=== PATIENT | male | born 1925 | race Hispanic/Latino ===

== ENCOUNTER 2017-07-16 05:22 | Emergency (ER) | payer MEDICARE ==
[2017-07-16 05:22] VITALS: BMI 23.7
[2017-07-16] MEDS ORDERED: Sodium Chloride 0.9% 1,000 ML IV ONE (05:55)
--- NOTE | 2017-07-16 05:58 | C.PDOC ---
History Of Present Illness The patient presents to the ED for evaluation of abdominal pain which began a few days ago. Patient also reports occasional right buttock discomfort when he sits down. Patient was seen by his PMD 5 days ago but his pain persists so he presents to the ED for further evaluation. Patient denies fever, chills, nausea , vomiting. Time Seen by Provider: 07/16/17 05:49 Chief Complaint (Nursing): Abdominal Pain History Per: Patient History/Exam Limitations: no limitations Onset/Duration Of Symptoms: Days Current Symptoms Are (Timing): Still Present Severity: Moderate Pain Scale Rating Of: 4 Location Of Pain/Discomfort: Diffuse Radiation Of Pain To:: None Quality Of Discomfort: "Pain" Associated Symptoms: denies: Fever, Chills, Nausea, Vomiting Exacerbating Factors: None Alleviating Factors: None Last Bowel Movement: Today Recent travel outside of the [place]: No Additional History Per: Patient Past Medical History Reviewed: Historical Data, Nursing Documentation, Vital Signs Vital Signs: Last Vital Signs Temp 97.7 F 07/16/17 05:47 Pulse 76 07/16/17 05:47 Resp 18 07/16/17 05:47 BP Pulse Ox - Medical History PMH: Arthritis, Diabetes, Gastrointestinal Ulcer ('bleeding'), Gall Bladder Disease, Hypercholesterolemia, Chronic Kidney Disease Surgical History: CABG (x4), Cholecystectomy, Endoscopy - [facility] Procedures DESTRUCTION OF PROSTATE, ENDO (11/26/16) EXCISION OF LEFT URETER, ENDO, DIAGN (09/13/16) FLUOROSCOPY OF LEFT KIDNEY, URETER AND BLADDER (09/13/16) Family History: States: Unknown Family Hx - Social History Hx Tobacco Use: Yes (former smoker) Hx Alcohol Use: No Hx Substance Use: No - Immunization History Hx Tetanus Toxoid Vaccination: No Hx Influenza Vaccination: No Hx Pneumococcal Vaccination: No Review Of Systems Constitutional: Negative for: Fever, Chills Cardiovascular: Negative for: Chest Pain, Palpitations Respiratory: Negative for: Cough, Shortness of Breath Gastrointestinal: Positive for: Abdominal Pain. Negative for: Nausea, Vomiting , Diarrhea, Constipation Genitourinary: Negative for: Dysuria, Frequency, Hematuria Musculoskeletal: Positive for: Other (right buttock discomfort ) Skin: Negative for: Rash, Lesions, Jaundice, Bruising Neurological: Negative for: Weakness, Numbness Physical Exam - Physical Exam Appears: Non-toxic, No Acute Distress Skin: Warm, Dry Head: Normacephalic Eye(s): bilateral: Normal Inspection Oral Mucosa: Moist Neck: Supple Chest: Symmetrical, No Deformity, No Tenderness, Other (CABG scar ) Cardiovascular: Rhythm Regular, No Murmur Respiratory: No Rales, No Rhonchi, No Wheezing Gastrointestinal/Abdominal: Soft, Tenderness (mild, diffuse ), Other (tympanic to percussion. left nephrectomy scar) Back: No Vertebral Tenderness, No Paraspinal Tenderness Extremity: Normal ROM, Capillary Refill (less than 2 seconds ) Neurological/Psych: Oriented x3 Gait: Steady ED Course And Treatment - Laboratory Results Result Diagrams: 07/16/17 06:05 07/16/17 06:05 ECG: Interpreted By Me, Viewed By Me ECG Rhythm: Sinus Rhythm Interpretation Of ECG: Sinus Rhythm at rate 70bpm with nonspecific ST-T wave changes. Rate From EC Progress Note: labs, EKG ordered and reviewed. Patient received Protonix IVP, Zofran IVP, and IV Fluids. Disposition Counseled Patient/Family Regarding: Studies Performed, Diagnosis - Disposition Disposition Time: 05:55 Condition: FAIR Forms: [facility] (Mongolian) - Clinical Impression Clinical Impression: Abdominal pain - Scribe Statement The provider has reviewed the documentation as recorded by the Scribe (Tameka Little) Provider Attestation: All medical record entries made by the Scribe were at my direction and personally dictated by me. I have reviewed the chart and agree that the record accurately reflects my personal performance of the history, physical exam, medical decision making, and the department course for this patient. I have also personally directed, reviewed, and agree with the discharge instructions and disposition. Physician Patient Turnover Patient Signed Over To: Tamiko Singh Handoff Comments: pending labs, ct scan and disposition
[2017-07-16 06:18] LABS: BASO # 0.1 K/uL (0.0-0.2); EOS # 0.3 K/uL (0.0-0.7); EOS % 4.5 % (0.0-4.0); MONO # 0.6 K/uL (0.0-0.8); MONO % 7.7 % (0.0-10.0)
[2017-07-16 06:20] LABS: BASO % 1.2 % (0.0-2.0); HEMATOCRIT 40.6 % (35.0-51.0); LYMPH % 27.3 % (20.0-40.0); MEAN CELL VOLUME 86.3 fL (80.0-94.0); MEAN CORPUSCULAR HEMOGLOBIN 28.4 pg (27.0-31.0); MEAN CORPUSCULAR HGB CONC 32.9 g/dL (33.0-37.0); MEAN PLATELET VOLUME 8.5 fL (7.2-11.7); NRBC % 0.1 % (0.0-2.0); RED CELL DISTRIBUTION WIDTH 14.4 % (11.5-14.5); WHITE BLOOD COUNT 7.4 K/uL (4.8-10.8)
[2017-07-16 06:22] LABS: RBC URINE 3 /hpf (0-3); URINE BILIRUBIN NEGATIVE (NEGATIVE); URINE BLOOD NEGATIVE (NEGATIVE); URINE COLOR YELLOW (YELLOW); URINE GLUCOSE (UA) 1+ mg/dL (Normal); URINE KETONE NEGATIVE (NEGATIVE); URINE LEUKOCYTE ESTERASE NEGATIVE Leu/uL (Negative); URINE PROTEIN 1+ mg/dL (NEGATIVE); URINE UROBILINOGEN Normal mg/dL (0.2-1.0); WBC URINE 2 /hpf (0-5)
[2017-07-16 06:27] LABS: ALB/GLOB RATIO 1.2 (1.0-2.1); BILIRUBIN,TOTAL 1.1 mg/dL (0.2-1.3); CALCIUM 9.6 mg/dl (8.6-10.4); TOTAL PROTEIN 8.5 g/dL (6.3-8.3)
[2017-07-16] MEDS ORDERED: Sodium Chloride 0.9% 1,000 ML ONE (06:29)
[2017-07-16 06:33] LABS: POTASSIUM 5.1 mmol/L (3.6-5.2)
--- NOTE | 2017-07-16 08:55 | CT ---
PROCEDURE: CT Abdomen and Pelvis without intravenous contrast HISTORY: abd pain COMPARISON: Comparison is made to the previous study dated 09/13/2016 TECHNIQUE: Axial and reformatted coronal and sagittal CT images of the abdomen and pelvis were obtained without IV or oral contrast administration.. Contrast Dose: 0 Radiation dose: Total exam DLP = 575.57 mGy-cm. This CT exam was performed using one or more of the following dose reduction techniques: Automated exposure control, adjustment of the mA and/or kV according to patient size, and/or use of iterative reconstruction technique. FINDINGS: LOWER THORAX: There are bibasilar hazy opacities may represent atelectasis. There is 7 millimeter noncalcified nodule at the right lung lower lobe image 9 series 3. No evidence of pleural effusion or pericardial effusion. LIVER: Unremarkable. No gross lesion or ductal dilatation. Small amount of pneumobilia seen at the central portion of the liver likely due to prior biliary procedure and cholecystectomy. GALLBLADDER AND BILE DUCTS: Status post cholecystectomy. PANCREAS: Unremarkable. No gross lesion or ductal dilatation. SPLEEN: Unremarkable. ADRENALS: Unremarkable. No mass. KIDNEYS AND URETERS: The patient is status post left nephrectomy since the previous CT. The right kidney is grossly unremarkable. No evidence of right renal stone or hydronephrosis. The right ureter is not distended. VASCULATURE: Unremarkable. No aortic aneurysm. BOWEL: Unremarkable. No obstruction. No gross mural thickening. Left colon diverticulosis seen without evidence of diverticulitis. APPENDIX: No evidence of appendicitis. PERITONEUM: Unremarkable. No free fluid. No free air. LYMPH NODES: There are moderately enlarged periaortic lymphadenopathy seen at the upper abdomen at the level of the right kidney. The largest lymph node measures approximately 3rd T1 millimeter in the transverse diameter. There are also mildly enlarged lymph node at the gastrohepatic ligament region. Mild retroperitoneal fat stranding and prominent lymph nodes are also seen. BLADDER: The urinary bladder is mildly distended. REPRODUCTIVE: The prostate is mildly enlarged. BONES: No acute fracture. OTHER FINDINGS: None. IMPRESSION: Status post left nephrectomy since the previous exam. Moderately enlarged periaortic lymphadenopathy seen mainly around the level of the kidneys. The differential diagnosis includes metastasis versus lymphoma or leukemia. Further assessment is recommended. Status post cholecystectomy. Small amount of pneumobilia seen at the central portion of the liver likely related to prior biliary procedure. Mildly distended urinary bladder. Noncalcified right lung lower lobe nodule measures 7 millimeter.
[2017-07-16 11:50] VITALS: BP 171/82; PULSE 82; RESP 20; TEMP 98.3; O2SAT 95
== END 2017-07-16 11:56 | disposition home or self-care (01) ==
LOC: C.ER 05:22
DX: R33.9 Retention of urine, unspecified (principal); R10.9 Unspecified abdominal pain; M79.604 Pain in right leg; E11.22 Type 2 diabetes mellitus with diabetic chronic kidney disease; N18.9 Chronic kidney disease, unspecified
CPT/HCPCS: 74176; 80053; 81001; 83690; 85025; 85610; 85730; 96374; 96375; 99284; C9113; J2405; J7040

== ENCOUNTER 2017-07-17 20:52 | Observation (INO) | payer MEDICARE ==
[2017-07-17 20:52] VITALS: BMI 23.7
--- NOTE | 2017-07-17 21:04 | C.PDOC ---
History Of Present Illness 89 y/o male presents to the ED for evaluation of recurring pelvic pain which began at around 1800 today. Patient states his symptoms are similar to prior episode. Patient also reports pelvic pain radiation from back. Patient was seen on 07/16 for same, sciatic and urinary retention s/p liang. Patient states the bag has been draining well and he has been compliant with his medications. Patient denies fever, nausea, vomiting, or focal weakness. RECUR PELVIC PAIN SINCE 1800. PS SIM TO PRIOR EPISODE. PELVIC PAIN RADIATION FROM BACK. SEEN 07/16 FOR SAME, +SCIATIC AND URINARY RETENTION S/P LIANG. PS BAG HAS BEEN DRAINING WELL, COMPLIANT W MEDS. NO FEVER, NV, FOCAL WEAKNESS. PENDING APPT DR STEPHENS 07/22 EXAM MILD DIST NONTOXIC ABD SOFT NT ND NO R/G +LIANG IN PLACE NEURO INTACT BACK LIMITED FULL EXTENSION DUE TO PAIN. Time Seen by Provider: 07/17/17 21:04 Chief Complaint (Nursing): Male Genitourinary History Per: Patient History/Exam Limitations: no limitations Onset/Duration Of Symptoms: Hrs Current Symptoms Are (Timing): Still Present Quality Of Discomfort: "Pain" Associated Symptoms: denies: Fever, Nausea, Vomiting Additional History Per: Patient Past Medical History Reviewed: Historical Data, Nursing Documentation, Vital Signs Vital Signs: Last Vital Signs Temp 97.3 F L 07/17/17 20:58 Pulse 77 07/17/17 20:58 Resp 18 07/17/17 20:58 BP 140/103 H 07/17/17 20:58 Pulse Ox 97 07/17/17 22:54 - Medical History PMH: Arthritis, Diabetes, Gastrointestinal Ulcer ('bleeding'), Gall Bladder Disease, Hypercholesterolemia, Chronic Kidney Disease Surgical History: CABG (x4), Cholecystectomy, Endoscopy - [facility] Procedures DESTRUCTION OF PROSTATE, ENDO (11/26/16) EXCISION OF LEFT URETER, ENDO, DIAGN (09/13/16) FLUOROSCOPY OF LEFT KIDNEY, URETER AND BLADDER (09/13/16) Family History: States: Unknown Family Hx - Social History Hx Tobacco Use: Yes (former smoker) Hx Alcohol Use: No Hx Substance Use: No - Immunization History Hx Tetanus Toxoid Vaccination: No Hx Influenza Vaccination: No Hx Pneumococcal Vaccination: No Review Of Systems Neurological: Negative for: Weakness, Numbness Physical Exam - Physical Exam Appears: Non-toxic, Other (mild distress ) Skin: Normal Color, Warm, Dry Head: Atraumatic, Normacephalic Eye(s): bilateral: Normal Inspection Oral Mucosa: Moist Neck: Supple Chest: Symmetrical, No Deformity, No Tenderness Cardiovascular: Rhythm Regular, No Murmur Respiratory: Normal Breath Sounds, No Rales, No Rhonchi, No Wheezing Gastrointestinal/Abdominal: Soft, No Tenderness, No Distention, No Guarding, No Rebound Back: Decreased ROM (limited full extension due to pain ) Extremity: Normal ROM, Capillary Refill (less than 2 seconds ) Neurological/Psych: Oriented x3, Normal Speech, Normal Cognition ED Course And Treatment - Laboratory Results Result Diagrams: 07/17/17 21:58 07/17/17 21:58 Interpretation Of Abnormal: PERSIST RENAL INSUFF, [facility] SINCE 2015. WBC NO SIG CHANGE O2 Sat by Pulse Oximetry: 97 (on RA) Pulse Ox Interpretation: Normal - Other Rad LS SPINE X-Ray: Interpreted by Me (ZHOU; NO LYTIC LESIONS) Progress Note: labs and LS spine AP/LAT ordered and reviewed. Patient recieved Morphine IVP and Toradol IVP. Progress - Re-Evaluation Re-evaluation Note: 07/17/17 22:54 PAIN IMPROVED 07/17/17 23:04 PS PMD @ [facility] D/W DR SALCEDO WILL ADMIT - Data Reviewed Data Reviewed: Lab, Diagnostic imaging, Old records - Continuity of Care Discussed patient case with:: Patient, Covering for PMD Disposition Counseled Patient/Family Regarding: Studies Performed, Diagnosis - Disposition Referrals: Harjinder Desai DO [Primary Care Provider] - Disposition: HOSPITALIZED Disposition Time: 23:05 Condition: STABLE Forms: [facility] (Bahraini) - POA Present On Arrival: None - Clinical Impression Clinical Impression: UTI (urinary tract infection), Intractable abdominal pain, Sciatic leg pain - Scribe Statement The provider has reviewed the documentation as recorded by the Scribe (Tameka Little) Provider Attestation: All medical record entries made by the Scribe were at my direction and personally dictated by me. I have reviewed the chart and agree that the record accurately reflects my personal performance of the history, physical exam, medical decision making, and the department course for this patient. I have also personally directed, reviewed, and agree with the discharge instructions and disposition. Decision To Admit - Pt Status Changed To: Hospital Disposition Of: Observation - . Bed Request Type: Regular Admitting Physician: Salvatore Salcedo Patient Diagnosis: UTI (urinary tract infection), Intractable abdominal pain, Sciatic leg pain
[2017-07-17 22:05] LABS: BASO # 0.1 K/uL (0.0-0.2); BASO % 0.8 % (0.0-2.0); EOS # 0.2 K/uL (0.0-0.7); HEMATOCRIT 36.4 % (35.0-51.0); LYMPH # 1.6 K/uL (1.0-4.3); LYMPH % 19.4 % (20.0-40.0); MEAN CELL VOLUME 86.1 fL (80.0-94.0); MEAN CORPUSCULAR HEMOGLOBIN 28.5 pg (27.0-31.0); MEAN CORPUSCULAR HGB CONC 33.1 g/dL (33.0-37.0); MEAN PLATELET VOLUME 8.1 fL (7.2-11.7); MONO # 0.6 K/uL (0.0-0.8); MONO % 7.3 % (0.0-10.0); NRBC % 0.1 % (0.0-2.0); RED CELL DISTRIBUTION WIDTH 14.3 % (11.5-14.5); WHITE BLOOD COUNT 8.2 K/uL (4.8-10.8)
[2017-07-17 22:14] LABS: POTASSIUM 4.4 mmol/L (3.6-5.2)
[2017-07-17 22:15] LABS: RBC URINE 196 /hpf (0-3); TRANSITIONAL EPITHIAL < 1 /hpf (0-3); URINE BACTERIA OCC (<OCC); URINE BILIRUBIN NEGATIVE (NEGATIVE); URINE BLOOD 3+ (NEGATIVE); URINE COLOR Yellow (YELLOW); URINE GLUCOSE (UA) NORMAL (Normal); URINE KETONE NEGATIVE (NEGATIVE); URINE LEUKOCYTE ESTERASE 3+ Leu/uL (Negative); URINE PROTEIN 1+ mg/dL (NEGATIVE); URINE UROBILINOGEN NORMAL mg/dL (0.2-1.0); WBC URINE 69 /hpf (0-5)
[2017-07-17 22:17] LABS: CALCIUM 8.4 mg/dl (8.6-10.4)
[2017-07-17] MEDS ORDERED: Ciprofloxacin 400mg/200ml D5W 400 MG/200 ML BAG IV STA (22:53)
[2017-07-18] MEDS ORDERED: Home Med 1 UNIT (Atorvastatin [Lipitor] 10 MG) PO SCH (01:00)
--- NOTE | 2017-07-18 01:02 | CP.PCM.HP ---
Addendum entered and electronically signed by Juan Gtz DO 07/18/17 02:02 : UTI - Cipro 400mg IV Q12 given instead of Rocephin for UTI due to patient stating that he has an allergy to penicillin (rash). Original Note: <Juan Gtz - Last Filed: 07/18/17 01:33> History of Present Illness - History of Present Illness History of Present Illness: PGY1 Medicine Note for Dr. Duran Patient is an 89 year old male presenting with a PMH of L urethral stricture, CAD, BPH, urinary retention, DM2, hyperlipidemia, and herniated discs presenting with suprapubic and right sided low flank pain. The patient came to the ED yesterday with the same complaints. It was found that he was retaining urine and a lund cath was placed. He was scheduled to follow up with Dr. Sneed as outpatient on Sunday 07/22. He states the pain went away soon after the lund placement yesterday and he was fine all day until 6pm tonight. He states he began to get a dull achy pain suprapubically and a right sided flank pain located directly above his hip bone. Neither pain radiates and it has been constant since its onset. He states that he was not given anything for pain yesterday, just flomax upon discharge. He attempted to take Tylenol which helped a little bit, but he was concerned so he decided to come back to the ED. He denies any f/c, n/v, d/c, sob, cp, numbness or dizziness. Urologist - Dr. nSeed (Dr. Tayler Lancaster has done work for him in the past.) PMH - L urethral stricture, CAD, BPH, urinary retention, DM2, hyperlipidemia, and herniated discs PSH -4 vessel bypass in [place] 1992, cholecystectomy 1992, partial prostatectomy 2001, Left Kidney Removed due to unknown reason to patient in December 2016. (My kidney was working at 25% but I don't know why) Home meds - Lipitor, Flomax and Restoril Allergies - PCN FamilyHx - denies Social - used to smoke 1ppd for 30 years and quit 25 years ago. Former alcoholic and quit 25 years ago. Denies drug use. Patient lives alone, only living family member is daughter in [place]. Present on Admission - Present on Admission Any Indicators Present on Admission: No Review of Systems - Constitutional Constitutional: absent: Chills, Fever, Weakness - EENT Eyes: absent: Change in Vision Nose/Mouth/Throat: absent: Nasal Congestion, Dysphagia - Cardiovascular Cardiovascular: absent: Chest Pain, Edema, Palpitations, Pedal Edema, Syncope - Respiratory Respiratory: absent: Cough, Dyspnea, Wheezing - Gastrointestinal Gastrointestinal: Abdominal Pain (suprapubic). absent: Change in Bowel Habits, Constipation, Diarrhea, Nausea, Vomiting - Genitourinary Genitourinary: Flank Pain (right side), Other (lund placed yesterday) - Neurological Neurological: absent: Abnormal Movements, Frequent Falls, Loss of Vision, Syncope, Tingling, Vertigo - Psychiatric Psychiatric: absent: Change in Appetite, Depression, Difficulty Concentrating - Hematologic/Lymphatic Hematologic: absent: Easy Bleeding, Easy Bruising Past Patient History - Infectious Disease Hx of Infectious Diseases: None - Past Medical History & Family History Past Medical History?: Yes - Past Social History Smoking Status: Former Smoker - CARDIAC Hx Hypercholesterolemia: Yes - PULMONARY Hx Respiratory Disorders: No - NEUROLOGICAL Hx Neurological Disorder: No - HEENT Hx HEENT Problems: Yes Hx Cataracts: Yes (surgery right eye) - RENAL Hx Chronic Kidney Disease: Yes - ENDOCRINE/METABOLIC Hx Diabetes Mellitus Type 2: Yes - HEMATOLOGICAL/ONCOLOGICAL Hx Blood Disorders: No - INTEGUMENTARY Hx Dermatological Problems: No - MUSCULOSKELETAL/RHEUMATOLOGICAL Hx Arthritis: Yes - GASTROINTESTINAL Hx Gall Bladder Disease: Yes - GENITOURINARY/GYNECOLOGICAL Hx Genitourinary Disorders: Yes Hx Hematuria: Yes Hx Prostate Problems: Yes (enlarged prostate, partial prostatectomy) Hx Urinary Tract Infection: Yes - PSYCHIATRIC Hx Substance Use: No - SURGICAL HISTORY Hx Cholecystectomy: Yes Hx Coronary Artery Bypass Graft: Yes (x4) - ANESTHESIA Hx Anesthesia: Yes Hx Anesthesia Reactions: No Hx Malignant Hyperthermia: No Meds Allergies/Adverse Reactions: Allergies Allergy/AdvReac Type Severity Reaction Status Date / Time Penicillins Allergy RASH Verified 07/17/17 20:54 Physical Exam - Constitutional Appears: Well, Non-toxic, No Acute Distress, Younger Than Stated Age - Head Exam Head Exam: ATRAUMATIC, NORMOCEPHALIC - Eye Exam Eye Exam: EOMI, Normal appearance - ENT Exam ENT Exam: Mucous Membranes Moist - Neck Exam Neck exam: Positive for: Normal Inspection. Negative for: Lymphadenopathy - Respiratory Exam Respiratory Exam: Clear to Auscultation Bilateral, NORMAL BREATHING PATTERN. absent: Accessory Muscle Use, Rales, Rhonchi, Wheezes, Respiratory Distress - Cardiovascular Exam Cardiovascular Exam: REGULAR RHYTHM, +S1, +S2 - GI/Abdominal Exam GI & Abdominal Exam: Distended, Normal Bowel Sounds, Soft, Tenderness (mild suprapubic). absent: Firm, Guarding, Rebound, Rigid - Exam Additional comments: lund cath in place draining yellow, grossly non-bloody urine - Extremities Exam Extremities exam: Positive for: normal inspection, pedal pulses present. Negative for: calf tenderness, pedal edema - Back Exam Back exam: absent: CVA tenderness (L), CVA tenderness (R), paraspinal tenderness , rash noted, tenderness, vertebral tenderness - Neurological Exam Neurological exam: Alert, Oriented x3 - Psychiatric Exam Psychiatric exam: Normal Affect, Normal Mood - Skin Skin Exam: Dry, Normal Color, Warm Results - Vital Signs Recent Vital Signs: Last Vital Signs Temp 97.5 F L 07/18/17 00:37 Pulse 68 07/18/17 00:37 Resp 20 07/18/17 00:37 BP 177/80 H 07/18/17 00:37 Pulse Ox 98 07/18/17 00:37 - Labs Result Diagrams: 07/17/17 21:58 07/17/17 21:58 Labs: Laboratory Results - last 24 hr 07/17/17 07/17/17 07/17/17 21:58 21:58 21:58 WBC 8.2 RBC 4.23 L Hgb 12.0 Hct 36.4 MCV 86.1 MCH 28.5 MCHC 33.1 RDW 14.3 Plt Count 216 MPV 8.1 Neut % (Auto) 69.5 Lymph % (Auto) 19.4 L Bailey % (Auto) 7.3 Eos % (Auto) 3.0 Baso % (Auto) 0.8 Neut # 5.7 Lymph # 1.6 Bailey # 0.6 Eos # 0.2 Baso # 0.1 Sodium 140 Potassium 4.4 Chloride 110 H Carbon Dioxide 15 L Anion Gap 19 BUN 34 H Creatinine 1.9 H Est GFR ( Amer) 41 Est GFR (Non-Af Amer) 34 Random Glucose 94 Calcium 8.4 L Urine Color Yellow Urine Clarity Hazy Urine pH 5.0 Ur Specific [place] 1.016 Urine Protein 1+ H Urine Glucose (UA) Normal Urine Ketones Negative Urine Blood 3+ H Urine Nitrate Negative Urine Bilirubin Negative Urine Urobilinogen Normal Ur Leukocyte Esterase 3+ H Urine WBC (Auto) 69 H Urine RBC (Auto) 196 H Ur Transition Epith Cell < 1 Urine Bacteria Occ H Assessment & Plan - Assessment and Plan (Free Text) Assessment: Urinary Retention Urology consult Dr. Sneed Lund placed on 07/16/17 UTI f/u urine culture Rocephin 1gm daily IVF - NS@80cc/hr Hx of CABG Patient not followed by Cardiology as an outpatient Aspirin 81mg PO daily DMII Accucheck Sliding Scale f/u HgbA1c Hyperlipidemia f/u lipid panel Crestor 5mg PO HS Ppx Heparin 5000U SC Q12 SCDs Protonix 40mg PO daily Renal Heart Healthy Diet with Moderate Consistent Carbs Plan discussed with Dr. Renee Gtz PGY1 <Salvatore Duran - Last Filed: 07/18/17 06:29> Results - Vital Signs Recent Vital Signs: Last Vital Signs Temp 97.5 F L 07/18/17 00:37 Pulse 68 07/18/17 02:25 Resp 20 07/18/17 02:25 BP 177/80 H 07/18/17 00:37 Pulse Ox 98 07/18/17 02:25 - Labs Result Diagrams: 07/17/17 21:58 07/17/17 21:58 Labs: Laboratory Results - last 24 hr 07/17/17 07/17/17 07/17/17 21:58 21:58 21:58 WBC 8.2 RBC 4.23 L Hgb 12.0 Hct 36.4 MCV 86.1 MCH 28.5 MCHC 33.1 RDW 14.3 Plt Count 216 MPV 8.1 Neut % (Auto) 69.5 Lymph % (Auto) 19.4 L Bailey % (Auto) 7.3 Eos % (Auto) 3.0 Baso % (Auto) 0.8 Neut # 5.7 Lymph # 1.6 Bailey # 0.6 Eos # 0.2 Baso # 0.1 Sodium 140 Potassium 4.4 Chloride 110 H Carbon Dioxide 15 L Anion Gap 19 BUN 34 H Creatinine 1.9 H Est GFR ( Amer) 41 Est GFR (Non-Af Amer) 34 Random Glucose 94 Calcium 8.4 L Urine Color Yellow Urine Clarity Hazy Urine pH 5.0 Ur Specific [place] 1.016 Urine Protein 1+ H Urine Glucose (UA) Normal Urine Ketones Negative Urine Blood 3+ H Urine Nitrate Negative Urine Bilirubin Negative Urine Urobilinogen Normal Ur Leukocyte Esterase 3+ H Urine WBC (Auto) 69 H Urine RBC (Auto) 196 H Ur Transition Epith Cell < 1 Urine Bacteria Occ H Assessment & Plan - Date & Time Date: 07/18/17 (I have seen and examined the patient. I agree with the findings and plan of care as documented by Dr. Gtz. Patient with urinary retention. Received lund on previous visit to ED. Now with UTI and continued pain. Cipro for now. Check blood and urine cultures. Continue home meds for history of diabetes. Accuchecks and NISS. Monitor for acute changes.) Time: 06:27 Attending/Attestation - Attestation I have personally seen and examined this patient.: Yes I have fully participated in the care of the patient.: Yes I have reviewed all pertinent clinical information: Yes
[2017-07-18] MEDS: Sodium Chloride 0.9% 1,000 ML IV SCH ×2 (02:00→13:41)
[2017-07-18] MEDS ORDERED: Pneumococcal 23-Valent Vaccine IM ONE (02:58)
[2017-07-18] MEDS: (Novolin R) Insulin Human Regular 100 units/ml vial SC SCH ×4 (08:01→21:53)
--- NOTE | 2017-07-18 08:20 | RAD ---
Lumbar spine three views History: Back pain. Comparison: None available. Findings: Minimal retrolisthesis of L2 on L3 as well as L4 on L5. Disc space narrowing at the T11-12 and T12-L1 levels. Prominent disc space narrowing at the L4-5 and L5-S1 levels with associated endplate sclerosis and anterior osteophytosis. Lower level facet hypertrophy. Calcification within the aorta. Multilevel paravertebral osteophytosis. Calcification within the pelvis. Impression: Prominent degenerative changes. If pain persists, consider MRI.
[2017-07-18 09:10] LABS: BASO # 0.1 K/uL (0.0-0.2); EOS # 0.3 K/uL (0.0-0.7); EOS % 5.2 % (0.0-4.0); LYMPH # 1.4 K/uL (1.0-4.3); LYMPH % 25.9 % (20.0-40.0); MEAN CELL VOLUME 86.8 fL (80.0-94.0); MEAN CORPUSCULAR HEMOGLOBIN 28.6 pg (27.0-31.0); MEAN CORPUSCULAR HGB CONC 32.9 g/dL (33.0-37.0); MEAN PLATELET VOLUME 8.1 fL (7.2-11.7); MONO # 0.5 K/uL (0.0-0.8); MONO % 9.8 % (0.0-10.0); NRBC % 0.1 % (0.0-2.0); RED CELL DISTRIBUTION WIDTH 14.3 % (11.5-14.5); WHITE BLOOD COUNT 5.5 K/uL (4.8-10.8)
[2017-07-18 09:17] LABS: POTASSIUM 4.7 mmol/L (3.6-5.2)
[2017-07-18 09:19] LABS: ALB/GLOB RATIO 1.1 (1.0-2.1); BILIRUBIN,TOTAL 0.9 mg/dL (0.2-1.3)
[2017-07-18 09:20] LABS: CALCIUM 8.6 mg/dl (8.6-10.4)
--- NOTE | 2017-07-18 09:58 | CP.PCM.PN ---
<Mavis Roca - Last Filed: 07/18/17 17:15> Subjective - Date & Time of Evaluation Date of Evaluation: 07/18/17 Time of Evaluation: 09:00 - Subjective Subjective: Medicine Progress Note: Patient was seen and examined at bedside in the AM. Patient states he was having decreased urination. He also is having decreased appetite this past week but denies weight loss. Patient denies current pain, fever, nausea or vomiting. Objective - Vital Signs/Intake and Output Vital Signs (last 24 hours): Temp Pulse Resp BP Pulse Ox 97 F L 62 21 124/69 95 07/18/17 08:04 07/18/17 08:04 07/18/17 08:04 07/18/17 08:04 07/18/17 08:04 Intake and Output: 07/18/17 07/18/17 06:59 18:59 Intake Total 630 Output Total 240 200 Balance -240 430 - Medications Medications: Current Medications Acetaminophen (Tylenol 325mg Tab) 650 mg PO Q6 PRN PRN Reason: fever/pain Last Admin: 07/18/17 01:11 Dose: 650 mg Aspirin (Aspirin Chewable) 81 mg PO DAILY [facility] Heparin Sodium (Porcine) (Heparin) 5,000 units SC Q8 [facility] Last Admin: 07/18/17 06:25 Dose: 5,000 units Home Med (Atorvastatin [Lipitor]) 10 mg PO DIN [facility] Ciprofloxacin (Cipro 400mg/200ml Dsw) 400 mg in 200 mls @ 133 mls/hr IVPB Q12H [facility] Sodium Chloride (Sodium Chloride 0.9%) 1,000 mls @ 80 mls/hr IV .[id number] [facility] Last Admin: 07/18/17 02:00 Dose: 80 mls/hr Ibuprofen (Motrin Tab) 600 mg PO Q6 PRN PRN Reason: Pain, moderate (4-7) Insulin Human Regular (Novolin R) 0 unit SC ACHS [facility] PRN Reason: Protocol Last Admin: 07/18/17 08:01 Dose: Not Given Pantoprazole Sodium (Protonix Inj) 40 mg IVP DAILY [facility] Tamsulosin HCl (Flomax) 0.4 mg PO DAILY [facility] Temazepam (Restoril) 30 mg PO HS PRN PRN Reason: Insomnia Last Admin: 07/18/17 01:11 Dose: 30 mg - Labs Labs: 07/18/17 08:58 07/18/17 08:58 APTT 34 SECONDS (21-34) D 07/18/17 08:58 - Constitutional Appears: No Acute Distress, Younger Than Stated Age - Head Exam Head Exam: ATRAUMATIC, NORMAL INSPECTION, NORMOCEPHALIC - Eye Exam Eye Exam: EOMI, Normal appearance, PERRL Pupil Exam: NORMAL ACCOMODATION - ENT Exam ENT Exam: Mucous Membranes Moist - Respiratory Exam Respiratory Exam: Clear to Ausculation Bilateral, NORMAL BREATHING PATTERN - Cardiovascular Exam Cardiovascular Exam: REGULAR RHYTHM, RRR, +S1, +S2 - GI/Abdominal Exam GI & Abdominal Exam: Soft, Normal Bowel Sounds. absent: Tenderness - Extremities Exam Extremities Exam: Normal Inspection. 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 Michi Lancaster --> help appreciated - Lew placed on 07/16/17 was removed 07/18 - BUN/Cr: 30/2 2.) UTI - f/u urine culture - UA: Urine bacteria +; WBC +; RBC +; Leukocyte esterase + * Ciprofloxacin 3.) History of CABG - Patient not followed by Cardiology as an outpatient * Aspirin 81mg PO daily - Cholesterol 109; LDL 48; HDL 37; Triglycerides 179 4.) History of Diabetes Type II - Accucheck * Sliding Scale - f/u [id number] 5.) History of Hyperlipidemia - Cholesterol 109; LDL 48; HDL 37; Triglycerides 179 * Crestor 5mg PO HS 6.) Prophylaxis * Heparin 5000U SC Q12 * SCDs * Protonix 40mg PO daily Renal Heart Healthy Diet with Moderate Consistent Carbs; Glucerna Shake 2 per day Case Discussed with Dr. Sidney Roca PGY-1 <Jeb Little - Last Filed: 07/18/17 20:10> Objective - Vital Signs/Intake and Output Vital Signs (last 24 hours): Temp Pulse Resp BP Pulse Ox 97.6 F 60 20 123/65 96 07/18/17 16:00 07/18/17 16:00 07/18/17 16:00 07/18/17 16:00 07/18/17 16:00 Intake and Output: 07/18/17 07/19/17 18:59 06:59 Intake Total 1550 Output Total 220 Balance 1330 - Medications Medications: Current Medications Acetaminophen (Tylenol 325mg Tab) 650 mg PO Q6 PRN PRN Reason: fever/pain Last Admin: 07/18/17 01:11 Dose: 650 mg Aspirin (Aspirin Chewable) 81 mg PO DAILY [facility] Last Admin: 07/18/17 10:48 Dose: 81 mg Heparin Sodium (Porcine) (Heparin) 5,000 units SC Q8 [facility] Last Admin: 07/18/17 13:40 Dose: 5,000 units Home Med (Atorvastatin [Lipitor]) 10 mg PO DIN [facility] Ciprofloxacin (Cipro 400mg/200ml Dsw) 400 mg in 200 mls @ 133 mls/hr IVPB Q12H [facility] Last Admin: 07/18/17 12:11 Dose: 133 mls/hr Ibuprofen (Motrin Tab) 600 mg PO Q6 PRN PRN Reason: Pain, moderate (4-7) Last Admin: 07/18/17 18:32 Dose: 600 mg Insulin Human Regular (Novolin R) 0 unit SC ACHS [facility] PRN Reason: Protocol Last Admin: 07/18/17 16:30 Dose: Not Given Pantoprazole Sodium (Protonix Inj) 40 mg IVP DAILY [facility] Last Admin: 07/18/17 10:49 Dose: 40 mg Tamsulosin HCl (Flomax) 0.4 mg PO DAILY [facility] Last Admin: 07/18/17 10:49 Dose: 0.4 mg Temazepam (Restoril) 30 mg PO HS PRN PRN Reason: Insomnia Last Admin: 07/18/17 01:11 Dose: 30 mg - Labs Labs: 07/18/17 08:58 07/18/17 08:58 APTT 34 SECONDS (21-34) D 07/18/17 08:58 Attending/Attestation - Attestation I have personally seen and examined this patient.: Yes I have fully participated in the care of the patient.: Yes I have reviewed all pertinent clinical information, including history, physical exam and plan: Yes Notes (Text): 07/18/17 20:07 Patient was seen and examined at 3:15 PM 07/18/17 Exam, Assessment and Plan were thoroughly gone over with the resident. I spoke with Urologist Dr. Felix Nichole and he stated that the Lew will not be reinserted. Follow the Post Void Residuals and if ok and NO UTI (f/u the Urine Culture) then will discharge patient. Please note patient could not provide much details concerning his history (such as why was left kidney removed? not on medications for DM 2?) He already has follow up scheduled with his Urologist Dr. Levy for Friday. Jeb Little D.O.
[2017-07-18] MEDS: Ciprofloxacin 400mg/200ml D5W 400 MG/200 ML BAG IVPB SCH ×2 (12:11→23:47)
[2017-07-18 16:36] VITALS: RESP 20
[2017-07-19] MEDS: (Novolin R) Insulin Human Regular 100 units/ml vial SC SCH ×3 (08:00→16:55)
[2017-07-19 08:09] LABS: EOS # 0.3 K/uL (0.0-0.7); EOS % 6.1 % (0.0-4.0); HEMATOCRIT 35.8 % (35.0-51.0); LYMPH # 1.3 K/uL (1.0-4.3); LYMPH % 27.7 % (20.0-40.0); MEAN CELL VOLUME 86.5 fL (80.0-94.0); MEAN CORPUSCULAR HEMOGLOBIN 28.9 pg (27.0-31.0); MEAN CORPUSCULAR HGB CONC 33.4 g/dL (33.0-37.0); MEAN PLATELET VOLUME 8.5 fL (7.2-11.7); MONO # 0.5 K/uL (0.0-0.8); MONO % 10.1 % (0.0-10.0); NRBC % 0.1 % (0.0-2.0); RED CELL DISTRIBUTION WIDTH 14.4 % (11.5-14.5); WHITE BLOOD COUNT 4.5 K/uL (4.8-10.8)
[2017-07-19 08:26] LABS: POTASSIUM 4.7 mmol/L (3.6-5.2)
[2017-07-19 08:28] LABS: BILIRUBIN,TOTAL 0.8 mg/dL (0.2-1.3)
[2017-07-19 08:29] LABS: ALB/GLOB RATIO 1.2 (1.0-2.1); CALCIUM 8.6 mg/dl (8.6-10.4); PHOSPHOROUS 3.2 mg/dL (2.5-4.5); TOTAL PROTEIN 7.2 g/dL (6.3-8.3)
--- NOTE | 2017-07-19 11:40 | CP.PCM.PN ---
Subjective - Date & Time of Evaluation Date of Evaluation: 07/19/17 Time of Evaluation: 11:36 - Subjective Subjective: Patient seen and examined at bedside. Patient frustrated because he wants to know if he has an infection. I informed the patient that we are waiting for the urine cultures and will let him know as soon as we know. Patient still having some suprapubic and low back pain. Patient denies f/c, cp/sob, n/v/d/c. Objective - Vital Signs/Intake and Output Vital Signs (last 24 hours): Temp Pulse Resp BP Pulse Ox 98.8 F 60 20 156/77 H 96 07/19/17 09:04 07/19/17 09:04 07/19/17 09:04 07/19/17 09:04 07/19/17 09:04 Intake and Output: 07/19/17 07/19/17 06:59 18:59 Intake Total 180 Balance 180 - Medications Medications: Current Medications Acetaminophen (Tylenol 325mg Tab) 650 mg PO Q6 PRN PRN Reason: fever/pain Last Admin: 07/18/17 23:50 Dose: 650 mg Aspirin (Aspirin Chewable) 81 mg PO DAILY [facility] Last Admin: 07/19/17 09:56 Dose: 81 mg Heparin Sodium (Porcine) (Heparin) 5,000 units SC Q8 [facility] Last Admin: 07/19/17 05:12 Dose: 5,000 units Home Med (Atorvastatin [Lipitor]) 10 mg PO DIN [facility] Ciprofloxacin (Cipro 400mg/200ml Dsw) 400 mg in 200 mls @ 133 mls/hr IVPB Q12H [facility] Last Admin: 07/18/17 23:47 Dose: 133 mls/hr Ibuprofen (Motrin Tab) 600 mg PO Q6 PRN PRN Reason: Pain, moderate (4-7) Last Admin: 07/19/17 08:41 Dose: 600 mg Insulin Human Regular (Novolin R) 0 unit SC ACHS [facility] PRN Reason: Protocol Last Admin: 07/19/17 08:00 Dose: Not Given Pantoprazole Sodium (Protonix Inj) 40 mg IVP DAILY [facility] Last Admin: 07/19/17 09:57 Dose: 40 mg Tamsulosin HCl (Flomax) 0.4 mg PO DAILY [facility] Last Admin: 07/19/17 09:56 Dose: 0.4 mg Temazepam (Restoril) 30 mg PO HS PRN PRN Reason: Insomnia - Labs Labs: 07/19/17 07:50 07/19/17 07:50 APTT 34 SECONDS (21-34) D 07/18/17 08:58 - Additional Findings Additional findings: - Constitutional Appears: No Acute Distress, Younger Than Stated Age - Head Exam Head Exam: ATRAUMATIC, NORMAL INSPECTION, NORMOCEPHALIC - Eye Exam Eye Exam: EOMI, Normal appearance, PERRL Pupil Exam: NORMAL ACCOMODATION - ENT Exam ENT Exam: Mucous Membranes Moist - Respiratory Exam Respiratory Exam: Clear to Ausculation Bilateral, NORMAL BREATHING PATTERN - Cardiovascular Exam Cardiovascular Exam: REGULAR RHYTHM, RRR, +S1, +S2, Murmur (systolic ejection murmur) - GI/Abdominal Exam GI & Abdominal Exam: Soft, Normal Bowel Sounds. absent: Tenderness - Back Exam Back Exam: absent: CVA tenderness b/l - Extremities Exam Extremities Exam: Normal Inspection. 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 Michi Lancaster --> help appreciated - Lew placed on 07/16/17 was removed 07/18 - BUN/Cr: 30/2 2.) UTI - f/u urine culture - UA: Urine bacteria +; WBC +; RBC +; Leukocyte esterase + * Ciprofloxacin 3.) History of CABG - Patient not followed by Cardiology as an outpatient * Aspirin 81mg PO daily - Cholesterol 109; LDL 48; HDL 37; Triglycerides 179 4.) History of Diabetes Type II - Accucheck * Sliding Scale - [id number] 7.5 5.) History of Hyperlipidemia - Cholesterol 109; LDL 48; HDL 37; Triglycerides 179 * Crestor 5mg PO HS 6.) Prophylaxis * Heparin 5000U SC Q12 * SCDs * Protonix 40mg PO daily - Renal Heart Healthy Diet with Moderate Consistent Carbs; Glucerna Shake 2 per day
[2017-07-19] MEDS: Ciprofloxacin 400mg/200ml D5W 400 MG/200 ML BAG IVPB SCH (13:01)
--- NOTE | 2017-07-19 15:47 | CP.PCM.DIS ---
<Elayne Ag - Last Filed: 07/19/17 16:49> Provider - Provider Date of Admission: 07/17/17 23:05 Attending physician: Jeb Little MD Primary care physician: Harjinder Desai DO Consults: Dr. Lancaster Time Spent in preparation of Discharge (in minutes): 35 Diagnosis - Discharge Diagnosis (1) UTI (urinary tract infection) Status: Acute (2) CAD (coronary artery disease) Status: Acute (3) Hx of CABG Status: Acute (4) Urinary retention Status: Acute (5) Diabetes Status: Chronic (6) Hypercholesterolemia Status: Chronic Hospital Course - Lab Results Lab Results: Micro Results 07/17/17 22:30 Urine Urine Culture - Final No Growth (<1,000 CFU/ML) Most Recent Lab Values WBC 4.5 K/uL (4.8-10.8) L 07/19/17 07:50 RBC 4.14 Mil/uL (4.40-5.90) L 07/19/17 07:50 Hgb 12.0 g/dL (12.0-18.0) 07/19/17 07:50 Hct 35.8 % (35.0-51.0) 07/19/17 07:50 MCV 86.5 fL (80.0-94.0) 07/19/17 07:50 MCH 28.9 pg (27.0-31.0) 07/19/17 07:50 MCHC 33.4 g/dL (33.0-37.0) 07/19/17 07:50 RDW 14.4 % (11.5-14.5) 07/19/17 07:50 Plt Count 190 K/uL (130-400) 07/19/17 07:50 MPV 8.5 fL (7.2-11.7) 07/19/17 07:50 Neut % (Auto) 55.1 % (50.0-75.0) 07/19/17 07:50 Lymph % (Auto) 27.7 % (20.0-40.0) 07/19/17 07:50 [place] % (Auto) 10.1 % (0.0-10.0) H 07/19/17 07:50 Eos % (Auto) 6.1 % (0.0-4.0) H 07/19/17 07:50 Baso % (Auto) 1.0 % (0.0-2.0) 07/19/17 07:50 Neut # 2.5 K/uL (1.8-7.0) 07/19/17 07:50 Lymph # 1.3 K/uL (1.0-4.3) 07/19/17 07:50 [place] # 0.5 K/uL (0.0-0.8) 07/19/17 07:50 Eos # 0.3 K/uL (0.0-0.7) 07/19/17 07:50 Baso # 0.0 K/uL (0.0-0.2) 07/19/17 07:50 APTT 34 SECONDS (21-34) D 07/18/17 08:58 Sodium 142 mmol/L (132-148) 07/19/17 07:50 Potassium 4.7 mmol/L (3.6-5.2) 07/19/17 07:50 Chloride 107 mmol/L (98-107) 07/19/17 07:50 Carbon Dioxide 22 mmol/L (22-30) 07/19/17 07:50 Anion Gap 17 (10-20) 07/19/17 07:50 BUN 29 mg/dL (9-20) H 07/19/17 07:50 Creatinine 2.0 MG/DL (0.8-1.5) H 07/19/17 07:50 Est GFR ( Amer) 38 07/19/17 07:50 Est GFR (Non-Af Amer) 32 07/19/17 07:50 POC Glucose (mg/dL) 119 mg/dL (65-110) H 07/19/17 11:37 Random Glucose 120 mg/dL (75-110) H 07/19/17 07:50 Hemoglobin A1c 7.5 % (4.2-6.5) H 07/18/17 08:58 Calcium 8.6 mg/dl (8.6-10.4) 07/19/17 07:50 Phosphorus 3.2 mg/dL (2.5-4.5) 07/19/17 07:50 Magnesium 2.0 mg/dL (1.6-2.3) 07/19/17 07:50 Total Bilirubin 0.8 mg/dL (0.2-1.3) 07/19/17 07:50 AST 20 U/L (17-59) 07/19/17 07:50 ALT 24 U/L (21-72) 07/19/17 07:50 Alkaline Phosphatase 70 U/L (38-126) 07/19/17 07:50 Total Protein 7.2 g/dL (6.3-8.3) 07/19/17 07:50 Albumin 3.9 g/dL (3.5-5.0) 07/19/17 07:50 Globulin 3.3 gm/dL (2.2-3.9) 07/19/17 07:50 Albumin/Globulin Ratio 1.2 (1.0-2.1) 07/19/17 07:50 Triglycerides 179 mg/dL (0-149) H D 07/18/17 08:58 Cholesterol 109 mg/dL (0-199) 07/18/17 08:58 LDL Cholesterol Direct 48 mg/dL (0-129) 07/18/17 08:58 HDL Cholesterol 37 mg/dL (30-70) 07/18/17 08:58 Urine Color Yellow (YELLOW) 07/17/17 21:58 Urine Clarity Hazy (Clear) 07/17/17 21:58 Urine pH 5.0 (5.0-8.0) 07/17/17 21:58 Ur Specific [place] 1.016 (1.003-1.030) 07/17/17 21:58 Urine Protein 1+ mg/dL (NEGATIVE) H 07/17/17 21:58 Urine Glucose (UA) Normal mg/dL (Normal) 07/17/17 21:58 Urine Ketones Negative mg/dL (NEGATIVE) 07/17/17 21:58 Urine Blood 3+ (NEGATIVE) H 07/17/17 21:58 Urine Nitrate Negative (NEGATIVE) 07/17/17 21:58 Urine Bilirubin Negative (NEGATIVE) 07/17/17 21:58 Urine Urobilinogen Normal mg/dL (0.2-1.0) 07/17/17 21:58 Ur Leukocyte Esterase 3+ Abilio/uL (Negative) H 07/17/17 21:58 Urine WBC (Auto) 69 /hpf (0-5) H 07/17/17 21:58 Urine RBC (Auto) 196 /hpf (0-3) H 07/17/17 21:58 Ur Transition Epith Cell < 1 /hpf (0-3) 07/17/17 21:58 Urine Bacteria Occ (<OCC) H 07/17/17 21:58 - Hospital Course Hospital Course: Upon Admission: Patient is an 89 year old male presenting with a PMH of L urethral stricture, CAD, BPH, urinary retention, DM2, hyperlipidemia, and herniated discs presenting with suprapubic and right sided low flank pain. The patient came to the ED yesterday with the same complaints. It was found that he was retaining urine and a lund cath was placed. He was scheduled to follow up with Dr. Sneed as outpatient on Sunday 07/22. He states the pain went away soon after the lund placement yesterday and he was fine all day until 6pm tonight. He states he began to get a dull achy pain suprapubically and a right sided flank pain located directly above his hip bone. Neither pain radiates and it has been constant since its onset. He states that he was not given anything for pain yesterday, just flomax upon discharge. He attempted to take Tylenol which helped a little bit, but he was concerned so he decided to come back to the ED. He denies any f/c, n/v, d/c, sob, cp, numbness or dizziness. Hospital Course: Patient was admitted for UTI with urinary retention secondary to left urethral stricture. Urology was consulted (Dr. Michi Lancaster). Lund was removed 07/18. Patient was treated with Ciprofloxacin 400 mg IV Q12h and Flomax 0.4 mg PO QD. Prior to arrival at the hospital the patient made an appointment with his urologist, Dr. Levy, who he plans to see on July 22. Patient has a history of CABG that is not followed by a needle punch machine operator helper. Aspirin 81mg PO daily was started and lipid panel done showing Cholesterol 109; LDL 48; HDL 37; Triglycerides 179. Patient was treated with Crestor 5mg PO HS. Patient was started on insulin sliding scale for his history of DMII. Upon Discharge: Patient seen and examined at bedside. Patient feels better today and his pain is significantly decreased. Patient says he was able to urinate this morning. Patient denies f/c, cp/sob, n/v/d/c. Patient cleared for discharge per Dr. Little. The following instructions were provided to the patient: 1. Please follow up with your PMD, Dr. Ward for regular coordination of care. You will need referral to a needle punch machine operator helper for the history of CABG. You will also need to be referred to a Fish Conservationist/Oncologist for evaluation of periaortic lymphadenopathy. We have provided you with a copy of your CT scan report. Please keep this report for the appointment. You will need a referral to a oracle distribution consultant for you chronic kidney disease. 2. Please follow up with your urologist, Dr. Levy, as planned for your appointment on Friday07/22/17. Please note this is a summary of events. For more details, please see complete medical record. Discharge Exam - Head Exam Head Exam: ATRAUMATIC, NORMAL INSPECTION, NORMOCEPHALIC - Additional Findings Additional findings: - Constitutional Appears: No Acute Distress, Younger Than Stated Age - Head Exam Head Exam: ATRAUMATIC, NORMAL INSPECTION, NORMOCEPHALIC - Eye Exam Eye Exam: EOMI, Normal appearance, PERRL Pupil Exam: NORMAL ACCOMODATION - ENT Exam ENT Exam: Mucous Membranes Moist - Respiratory Exam Respiratory Exam: Clear to Ausculation Bilateral, NORMAL BREATHING PATTERN - Cardiovascular Exam Cardiovascular Exam: REGULAR RHYTHM, RRR, +S1, +S2, Murmur (systolic ejection murmur) - GI/Abdominal Exam GI & Abdominal Exam: Soft, Normal Bowel Sounds. absent: Tenderness - Back Exam Back Exam: absent: CVA tenderness b/l - Extremities Exam Extremities Exam: Normal Inspection. absent: Pedal Edema, Tenderness - Neurological Exam Neurological Exam: Alert, Awake, Oriented x3 - Psychiatric Exam Psychiatric exam: Anxious - Skin Skin Exam: Normal Color, Warm Discharge Plan - Follow Up Plan Condition: STABLE Disposition: HOME/ ROUTINE Instructions: Urinary Tract Infection in Men (DC), Abdominal Pain (ED) Additional Instructions: The following instructions should be provided to the patient: 1. Please follow up with your PMD, Dr. Ward for regular coordination of care. You will need referral to a needle punch machine operator helper for the history of CABG. You will also need to be referred to a Fish Conservationist/Oncologist for evaluation of periaortic lymphadenopathy. We have provided you with a copy of your CT scan report. Please keep this report for the appointment. You will need a referral to a oracle distribution consultant for you chronic kidney disease. 2. Please follow up with your urologist, Dr. Levy, as planned for your appointment on Friday07/22/17. Referrals: Harjinder Desai DO [Primary Care Provider] - Michi Levy MD [Staff Provider] - <Jeb Little - Last Filed: 07/19/17 19:37> Provider - Provider Date of Admission: 07/17/17 23:05 Attending physician: Jeb Little MD Primary care physician: Harjinder Desai DO Hospital Course - Lab Results Lab Results: Micro Results 07/17/17 22:30 Urine Urine Culture - Final No Growth (<1,000 CFU/ML) Most Recent Lab Values WBC 4.5 K/uL (4.8-10.8) L 07/19/17 07:50 RBC 4.14 Mil/uL (4.40-5.90) L 07/19/17 07:50 Hgb 12.0 g/dL (12.0-18.0) 07/19/17 07:50 Hct 35.8 % (35.0-51.0) 07/19/17 07:50 MCV 86.5 fL (80.0-94.0) 07/19/17 07:50 MCH 28.9 pg (27.0-31.0) 07/19/17 07:50 MCHC 33.4 g/dL (33.0-37.0) 07/19/17 07:50 RDW 14.4 % (11.5-14.5) 07/19/17 07:50 Plt Count 190 K/uL (130-400) 07/19/17 07:50 MPV 8.5 fL (7.2-11.7) 07/19/17 07:50 Neut % (Auto) 55.1 % (50.0-75.0) 07/19/17 07:50 Lymph % (Auto) 27.7 % (20.0-40.0) 07/19/17 07:50 [place] % (Auto) 10.1 % (0.0-10.0) H 07/19/17 07:50 Eos % (Auto) 6.1 % (0.0-4.0) H 07/19/17 07:50 Baso % (Auto) 1.0 % (0.0-2.0) 07/19/17 07:50 Neut # 2.5 K/uL (1.8-7.0) 07/19/17 07:50 Lymph # 1.3 K/uL (1.0-4.3) 07/19/17 07:50 [place] # 0.5 K/uL (0.0-0.8) 07/19/17 07:50 Eos # 0.3 K/uL (0.0-0.7) 07/19/17 07:50 Baso # 0.0 K/uL (0.0-0.2) 07/19/17 07:50 APTT 34 SECONDS (21-34) D 07/18/17 08:58 Sodium 142 mmol/L (132-148) 07/19/17 07:50 Potassium 4.7 mmol/L (3.6-5.2) 07/19/17 07:50 Chloride 107 mmol/L (98-107) 07/19/17 07:50 Carbon Dioxide 22 mmol/L (22-30) 07/19/17 07:50 Anion Gap 17 (10-20) 07/19/17 07:50 BUN 29 mg/dL (9-20) H 07/19/17 07:50 Creatinine 2.0 MG/DL (0.8-1.5) H 07/19/17 07:50 Est GFR ( Amer) 38 07/19/17 07:50 Est GFR (Non-Af Amer) 32 07/19/17 07:50 POC Glucose (mg/dL) 106 mg/dL (65-110) 07/19/17 16:00 Random Glucose 120 mg/dL (75-110) H 07/19/17 07:50 Hemoglobin A1c 7.5 % (4.2-6.5) H 07/18/17 08:58 Calcium 8.6 mg/dl (8.6-10.4) 07/19/17 07:50 Phosphorus 3.2 mg/dL (2.5-4.5) 07/19/17 07:50 Magnesium 2.0 mg/dL (1.6-2.3) 07/19/17 07:50 Total Bilirubin 0.8 mg/dL (0.2-1.3) 07/19/17 07:50 AST 20 U/L (17-59) 07/19/17 07:50 ALT 24 U/L (21-72) 07/19/17 07:50 Alkaline Phosphatase 70 U/L (38-126) 07/19/17 07:50 Total Protein 7.2 g/dL (6.3-8.3) 07/19/17 07:50 Albumin 3.9 g/dL (3.5-5.0) 07/19/17 07:50 Globulin 3.3 gm/dL (2.2-3.9) 07/19/17 07:50 Albumin/Globulin Ratio 1.2 (1.0-2.1) 07/19/17 07:50 Triglycerides 179 mg/dL (0-149) H D 07/18/17 08:58 Cholesterol 109 mg/dL (0-199) 07/18/17 08:58 LDL Cholesterol Direct 48 mg/dL (0-129) 07/18/17 08:58 HDL Cholesterol 37 mg/dL (30-70) 07/18/17 08:58 Urine Color Yellow (YELLOW) 07/17/17 21:58 Urine Clarity Hazy (Clear) 07/17/17 21:58 Urine pH 5.0 (5.0-8.0) 07/17/17 21:58 Ur Specific [place] 1.016 (1.003-1.030) 07/17/17 21:58 Urine Protein 1+ mg/dL (NEGATIVE) H 07/17/17 21:58 Urine Glucose (UA) Normal mg/dL (Normal) 07/17/17 21:58 Urine Ketones Negative mg/dL (NEGATIVE) 07/17/17 21:58 Urine Blood 3+ (NEGATIVE) H 07/17/17 21:58 Urine Nitrate Negative (NEGATIVE) 07/17/17 21:58 Urine Bilirubin Negative (NEGATIVE) 07/17/17 21:58 Urine Urobilinogen Normal mg/dL (0.2-1.0) 07/17/17 21:58 Ur Leukocyte Esterase 3+ Abilio/uL (Negative) H 07/17/17 21:58 Urine WBC (Auto) 69 /hpf (0-5) H 07/17/17 21:58 Urine RBC (Auto) 196 /hpf (0-3) H 07/17/17 21:58 Ur Transition Epith Cell < 1 /hpf (0-3) 07/17/17 21:58 Urine Bacteria Occ (<OCC) H 07/17/17 21:58 Attending/Attestation - Attestation I have personally seen and examined this patient.: Yes I have fully participated in the care of the patient.: Yes I have reviewed all pertinent clinical information, including history, physical exam and plan: Yes Notes (Text): 07/19/17 19:34 Patient was seen and examined at 4:15 PM 07/19/17 Exam, discharge plan were thoroughly gone over with the resident. Patient stated that he had all of his home medications and that he did not need any new prescriptions Concerning his DM 2, he is not on any medications. When asked why this was the case, he stated that his PMD removed all of his medications. He was instructed to follow up with Dr. Ward concerning this issue. I verballly also gave patient his follow up instructions as mentioned above. Jeb Little D.O.
[2017-07-19 16:16] VITALS: BP 164/73; PULSE 66; TEMP 97.4; O2SAT 95
== END 2017-07-19 20:00 | disposition home or self-care (01) ==
LOC: C.ER 20:52 → SUPCPDRO 20:52 → C.9E 23:05 → C.3T 23:41
PROVIDERS: ADMIT Family Medicine; ATTEND Family Medicine
DX: N39.0 Urinary tract infection, site not specified (principal); R33.8 Other retention of urine; N40.1 Benign prostatic hyperplasia with lower urinary tract symptoms; E11.22 Type 2 diabetes mellitus with diabetic chronic kidney disease; I25.10 Atherosclerotic heart disease of native coronary artery without angina pectoris; N18.9 Chronic kidney disease, unspecified; N35.9 Urethral stricture, unspecified; E78.5 Hyperlipidemia, unspecified; Z79.82 Long term (current) use of aspirin; Z87.11 Personal history of peptic ulcer disease; Z87.440 Personal history of urinary (tract) infections; Z87.891 Personal history of nicotine dependence; Z90.49 Acquired absence of other specified parts of digestive tract; Z90.5 Acquired absence of kidney; Z95.1 Presence of aortocoronary bypass graft
CPT/HCPCS: 36415; 72100; 80048; 80053; 80061; 81001; 82948; 83036; 83735; 84100; 85025; 85730; 87086; 96374; 96375; 97116; 97161; 99285; C9113; G0378; G8978; G8979; J0744; J1644; J1885; J2270; J7040

== ENCOUNTER 2017-08-04 11:39 | Inpatient (IN) | payer MEDICARE ==
[2017-08-04 11:39] VITALS: BMI 23.7
--- NOTE | 2017-08-04 12:29 | C.PDOC ---
History Of Present Illness 89 Y/O MALE PRESENTS TO ED WITH C/O LOWER ABDOMINAL PAIN, BACK/RIGHT BUTTOCK PAIN, AND RIGHT LEG PAIN. PT WITH HISTORY OF BLADDER CA. DENIES FEVER, CHILLS, CHEST PAIN, SOB, NAUSEA, VOMITING, DIARRHEA, OR URINARY SYMPTOMS. PMH of L urethral stricture, CAD, BPH, urinary retention, DM2, hyperlipidemia, and herniated discs DC 07/19 Time Seen by Provider: 08/04/17 12:27 Chief Complaint (Nursing): Abdominal Pain History Per: Patient History/Exam Limitations: no limitations Onset/Duration Of Symptoms: Persistent Current Symptoms Are (Timing): Still Present Severity: Moderate Quality Of Discomfort: "Pain" Associated Symptoms: Back Pain. denies: Fever, Chills, Diarrhea, Chest Pain, Urinary Symptoms Recent travel outside of the [place]: No Past Medical History Reviewed: Historical Data, Nursing Documentation, Vital Signs Vital Signs: Last Vital Signs Temp 97.6 F 08/04/17 11:56 Pulse 67 08/04/17 15:18 Resp 20 08/04/17 15:18 BP 125/63 08/04/17 15:18 Pulse Ox 96 08/04/17 15:19 - Medical History PMH: Arthritis, Diabetes, Gastrointestinal Ulcer ('bleeding'), Gall Bladder Disease, Hypercholesterolemia, Chronic Kidney Disease Surgical History: CABG (x4), Cholecystectomy, Endoscopy - [facility] Procedures DESTRUCTION OF PROSTATE, ENDO (11/26/16) EXCISION OF LEFT URETER, ENDO, DIAGN (09/13/16) FLUOROSCOPY OF LEFT KIDNEY, URETER AND BLADDER (09/13/16) Family History: States: Unknown Family Hx - Social History Hx Tobacco Use: Yes (former smoker) Hx Alcohol Use: No Hx Substance Use: No - Immunization History Hx Tetanus Toxoid Vaccination: No Hx Influenza Vaccination: No Hx Pneumococcal Vaccination: No Review Of Systems Except As Marked, All Systems Reviewed And Found Negative. Constitutional: Negative for: Fever, Chills Cardiovascular: Negative for: Chest Pain, Palpitations Respiratory: Negative for: Cough, Shortness of Breath, Wheezing Gastrointestinal: Positive for: Abdominal Pain. Negative for: Nausea, Vomiting , Diarrhea Genitourinary: Negative for: Dysuria, Frequency, Hematuria Musculoskeletal: Positive for: Back Pain, Leg Pain (R) Skin: Negative for: Rash Neurological: Negative for: Weakness, Numbness, Headache, Dizziness Physical Exam - Physical Exam Appears: Non-toxic, No Acute Distress Skin: Warm, Dry Head: Atraumatic, Normacephalic Chest: Symmetrical Cardiovascular: Rhythm Regular Respiratory: Normal Breath Sounds, No Rales, No Rhonchi, No Wheezing Gastrointestinal/Abdominal: Soft, No Tenderness, No Guarding, No Rebound Back: No Vertebral Tenderness, Decreased ROM Extremity: Normal ROM, Capillary Refill (< 2 sec. ) Neurological/Psych: Oriented x3, Normal Speech, Normal Cognition ED Course And Treatment - Laboratory Results Result Diagrams: 08/04/17 14:27 08/04/17 14:27 ECG: Interpreted By Me, Viewed By Me ECG Rhythm: Sinus Rhythm ECG Interpretation: Normal Rate From EC O2 Sat by Pulse Oximetry: 96 (RA) Pulse Ox Interpretation: Normal - Other Rad LS SPINE XR X-Ray: Viewed By Me, Read By Radiologist Interpretation: Findings: Minimal retrolisthesis of L2 on L3 as well as L4 on L5. Disc space narrowing at the T11-12 and T12-L1 levels. Prominent disc space narrowing at the L4-5 and L5-S1 levels with associated endplate sclerosis and anterior osteophytosis. Lower level facet hypertrophy. Calcification within the aorta. Multilevel paravertebral osteophytosis. Calcification within the pelvis. Impression: Prominent degenerative changes. If pain persists, consider MRI. CXR X-Ray: Viewed By Me, Read By Radiologist Interpretation: No focal consolidation, significant pleural effusion, or definite pneumothorax identified. Enlarged mediastinum; adenopathy is not excluded. Ectatic aorta with calcifications. Progress - Re-Evaluation Re-evaluation Note: 08/04/17 12:36 BLADDER SCAN, EKG. PERCOCET ORDERED. 08/04/17 13:53 D/W DR LANCASTER ADMIT TO HIS SERVICE FOR CA WORKUP 08/04/17 15:14 STILL CO PERSIST PAIN. NARD EXAM UNCH PRIOR. - Data Reviewed Data Reviewed: Lab, Diagnostic imaging, Old records Disposition Counseled Patient/Family Regarding: Studies Performed, Diagnosis - Disposition Disposition: HOSPITALIZED Disposition Time: 13:54 Condition: STABLE - POA Present On Arrival: None - Clinical Impression Clinical Impression: Back pain - Scribe Statement The provider has reviewed the documentation as recorded by the Scribmanoj Geiger All medical record entries made by the Scribe were at my direction and personally dictated by me. I have reviewed the chart and agree that the record accurately reflects my personal performance of the history, physical exam, medical decision making, and the department course for this patient. I have also personally directed, reviewed, and agree with the discharge instructions and disposition. Decision To Admit - Pt Status Changed To: Hospital Disposition Of: Observation - . Bed Request Type: Regular Admitting Physician: Michi Lancaster Patient Diagnosis: Back pain
[2017-08-04] MEDS ORDERED: Oxycodone/Acetaminophen 5/325 mg Tab PO STA (12:36)
[2017-08-04] MEDS ORDERED: Oxycodone/Acetaminophen 5/325 mg Tab ONE (12:48)
[2017-08-04 14:31] LABS: BASO # 0.1 K/uL (0.0-0.2); BASO % 0.9 % (0.0-2.0); EOS # 0.1 K/uL (0.0-0.7); EOS % 1.8 % (0.0-4.0); LYMPH # 1.6 K/uL (1.0-4.3); LYMPH % 24.4 % (20.0-40.0); MEAN CELL VOLUME 86.7 fL (80.0-94.0); MEAN CORPUSCULAR HEMOGLOBIN 29.2 pg (27.0-31.0); MEAN CORPUSCULAR HGB CONC 33.7 g/dL (33.0-37.0); MEAN PLATELET VOLUME 7.3 fL (7.2-11.7); MONO # 0.5 K/uL (0.0-0.8); MONO % 7.5 % (0.0-10.0); RED CELL DISTRIBUTION WIDTH 14.6 % (11.5-14.5); WHITE BLOOD COUNT 6.6 K/uL (4.8-10.8)
[2017-08-04 14:43] LABS: POTASSIUM 4.7 mmol/L (3.6-5.2)
[2017-08-04 14:47] LABS: CALCIUM 9.5 mg/dl (8.6-10.4)
[2017-08-04] MEDS ORDERED: HYDROmorphone 0.5 mg/0.5 ml ISec IVP STA (15:14)
--- NOTE | 2017-08-04 15:33 | RAD ---
HISTORY: BACK PAIN HO CANCER COMPARISON: Chest x-ray performed 11/29/16 TECHNIQUE: Chest, one view. FINDINGS: LUNGS: No focal consolidation. Please note that chest x-ray has limited sensitivity for the detection of pulmonary masses. PLEURA: No significant pleural effusion identified. No definite pneumothorax . CARDIOVASCULAR: Enlarged mediastinum; adenopathy is not excluded. Heart size appears within normal limits. Ectatic aorta with calcifications. OSSEOUS STRUCTURES: No acute osseous abnormality identified. VISUALIZED UPPER ABDOMEN: Unremarkable. OTHER FINDINGS: None. IMPRESSION: No focal consolidation, significant pleural effusion, or definite pneumothorax identified. Enlarged mediastinum; adenopathy is not excluded. Ectatic aorta with calcifications.
--- NOTE | 2017-08-04 22:39 | CP.PCM.CON ---
<Rashida Pinon - Last Filed: 08/05/17 02:30> History of Present Illness - History of Present Illness History of Present Illness: CC: abdominal pain HPI: Patient is an 89 year old male with a past medical history of bladder cancer, BPH, left urethral stricture, urinary retention, CAD, DM2, HLD, and lumbar herniated discs. He was recently discharged from hospital 2 weeks ago s/ p urinary retention with UTI. He presented to the ED today complaining of bilateral suprapubic abdominal pain that started two weeks ago and progressively worsened. The pain is constant and described as "steady," rated 7.5/10 with no radiation. Patient recently saw Dr. Kim (Heme/Onc) for his suprapubic abdominal pain. Patient reports he had imaging/scan of his lymph nodes done, which is what prompted Dr. Fermin to send the patient to the ED. Patient also complains of moderate to severe low back pain that radiates to the right buttock and leg which started months ago but has also worsened. The pain has been manageable with Tylenol at home, but greatly worsens at night and interrupts his sleep. Denies any ill contacts, fever, chills, nausea, vomiting , diarrhea, constipation, or urinary changes. Patient was given Dilaudid for pain in ED. At time of exam, patient is resting comfortably with no pain compared to arrival at ED. PMD: Dr. Desai Urologist: Dr. Mildred Rogel/Onc: Dr. 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 Allergies: Penicillin Home Meds: Acetaminophen 650 mg PO q6 PRN for pain; Temazepam 30 mg PO qhs PRN for sleep; Tamsulosin 0.4 mg PO daily; Atorvastatin 10 mg PO Review of Systems - Constitutional Constitutional: absent: Fever, Headache - EENT Ears: absent: Dizziness - Cardiovascular Cardiovascular: absent: Chest Pain, Dyspnea, Palpitations - Respiratory Respiratory: absent: Cough, Dyspnea - Gastrointestinal Gastrointestinal: absent: Abdominal Pain, Constipation, Diarrhea, Nausea, Vomiting - Genitourinary Genitourinary: absent: Dysuria, Hematuria, Urinary Frequency - Reproductive: Male Reproductive:Male: Pelvic Pain (bilateral suprapubic pain) - Neurological Neurological: absent: Dizziness, Headaches - Endocrine Endocrine: absent: Palpitations, Polyuria Past Patient History - Infectious Disease Hx of Infectious Diseases: None - Past Medical History & Family History Past Medical History?: Yes - Past Social History Smoking Status: stopped 30 - CARDIAC Hx Hypercholesterolemia: Yes - PULMONARY Hx Respiratory Disorders: No - NEUROLOGICAL Hx Neurological Disorder: No - HEENT Hx HEENT Problems: Yes Hx Cataracts: Yes (surgery right eye) - RENAL Hx Chronic Kidney Disease: Yes - ENDOCRINE/METABOLIC Hx Diabetes Mellitus Type 2: Yes - HEMATOLOGICAL/ONCOLOGICAL Hx Blood Disorders: No - INTEGUMENTARY Hx Dermatological Problems: No - MUSCULOSKELETAL/RHEUMATOLOGICAL Hx Falls: No - GASTROINTESTINAL Hx Gall Bladder Disease: Yes - GENITOURINARY/GYNECOLOGICAL Hx Genitourinary Disorders: Yes Hx Bladder Cancer: Yes Hx Hematuria: Yes Hx Prostate Problems: Yes (enlarged prostate, partial prostatectomy) Hx Urinary Tract Infection: Yes - PSYCHIATRIC Hx Substance Use: No - SURGICAL HISTORY Hx Cholecystectomy: Yes Hx Coronary Artery Bypass Graft: Yes (x4) - ANESTHESIA Hx Anesthesia: Yes Hx Anesthesia Reactions: No Hx Malignant Hyperthermia: No Meds Allergies/Adverse Reactions: Allergies Allergy/AdvReac Type Severity Reaction Status Date / Time Penicillins Allergy RASH Verified 08/04/17 12:00 - Medications Medications: Current Medications Acetaminophen (Tylenol 325mg Tab) 650 mg PO Q6 PRN PRN Reason: Insomnia Last Admin: 08/04/17 21:52 Dose: 650 mg Aspirin (Aspirin Chewable) 81 mg PO DAILY LYNDSAY Pneumococcal Polyvalent Vaccine (Pneumovax 23 Vaccine) 0.5 ml IM .ONCE ONE Stop: 08/05/17 10:01 Rosuvastatin Calcium (Crestor) 5 mg PO HS LYNDSAY Tamsulosin HCl (Flomax) 0.4 mg PO DAILY LYNDSAY Temazepam (Restoril) 30 mg PO HS PRN PRN Reason: Insomnia Last Admin: 08/04/17 21:51 Dose: 30 mg Physical Exam - Constitutional Appears: Well, No Acute Distress - Head Exam Head Exam: ATRAUMATIC, NORMAL INSPECTION - Eye Exam Eye Exam: EOMI, Normal appearance - ENT Exam ENT Exam: Mucous Membranes Moist - Respiratory Exam Respiratory Exam: Clear to Auscultation Bilateral, NORMAL BREATHING PATTERN. absent: Rhonchi, Wheezes, Respiratory Distress - Cardiovascular Exam Cardiovascular Exam: REGULAR RHYTHM, +S1, +S2, Systolic Murmur. absent: Bradycardia, Tachycardia - GI/Abdominal Exam GI & Abdominal Exam: Distended, Normal Bowel Sounds, Soft. absent: Firm, Tenderness - Exam Additional comments: Bilateral lymphadenopathy, R>L, nontender at time of exam. No tenderness to palpation of the suprapubic region at time of exam. - Extremities Exam Extremities exam: Positive for: normal inspection, pedal pulses present. Negative for: pedal edema, tenderness - Neurological Exam Neurological exam: Alert, Oriented x3 - Psychiatric Exam Psychiatric exam: Normal Affect, Normal Mood - Skin Skin Exam: Dry, Intact, Normal Color, Warm Additional comments: Well healed parasternal and abdominal surgical scars. Results - Vital Signs Recent Vital Signs: Last Vital Signs Temp 97.6 F 08/04/17 16:00 Pulse 77 08/04/17 16:00 Resp 20 08/04/17 16:00 BP 183/93 H 08/04/17 16:00 Pulse Ox 95 08/04/17 16:00 - Labs Result Diagrams: 08/04/17 14:27 08/04/17 14:27 Labs: Laboratory Results - last 24 hr 08/04/17 08/04/17 08/04/17 14:27 14:27 17:09 WBC 6.6 RBC 4.62 Hgb 13.5 Hct 40.0 MCV 86.7 MCH 29.2 MCHC 33.7 RDW 14.6 H Plt Count 268 MPV 7.3 Neut % (Auto) 65.4 Lymph % (Auto) 24.4 [place] % (Auto) 7.5 Eos % (Auto) 1.8 Baso % (Auto) 0.9 Neut # 4.3 Lymph # 1.6 [place] # 0.5 Eos # 0.1 Baso # 0.1 Sodium 135 Potassium 4.7 Chloride 101 Carbon Dioxide 21 L Anion Gap 18 BUN 35 H Creatinine 2.0 H Est GFR ( Amer) 38 Est GFR (Non-Af Amer) 32 POC Glucose (mg/dL) 106 Random Glucose 119 H Calcium 9.5 08/04/17 21:22 WBC RBC Hgb Hct MCV MCH MCHC RDW Plt Count MPV Neut % (Auto) Lymph % (Auto) [place] % (Auto) Eos % (Auto) Baso % (Auto) Neut # Lymph # [place] # Eos # Baso # Sodium Potassium Chloride Carbon Dioxide Anion Gap BUN Creatinine Est GFR ( Amer) Est GFR (Non-Af Amer) POC Glucose (mg/dL) 167 H Random Glucose Calcium Assessment & Plan (1) Diabetes Assessment and Plan: Patient reports having a history of diabetes, but does not take medication. Monitor blood glucose. ACHS. Status: Chronic (2) Hypercholesterolemia Assessment and Plan: Continue Crestor 5mg PO HS. Status: Chronic (3) BPH (benign prostatic hyperplasia) Assessment and Plan: Continue home medication- Flomax 0.4mg PO daily. Status: Acute (4) Lymphadenopathy Assessment and Plan: Patient had imaging/scan with their hem/onc doctor, Dr. Fermin, for suprapubic pain and lymphadenopathy. Patient does not have results from imaging study. Patient has a history of bladder cancer. Follow recommendations as per Dr. Fermin, help appreciated. Status: Acute (5) Insomnia Assessment and Plan: Continue Temazepam 30mg PO HS prn. Status: Acute (6) Prophylactic measure Assessment and Plan: SCDs ACHS Heart Healthy Diet Pepcid 20mg PO daily Status: Acute <Salvatore Duran - Last Filed: 08/05/17 06:27> Meds - Medications Medications: Current Medications Acetaminophen (Tylenol 325mg Tab) 650 mg PO Q6 PRN PRN Reason: Insomnia Last Admin: 08/05/17 04:25 Dose: 650 mg Aspirin (Aspirin Chewable) 81 mg PO DAILY LYNDSAY Famotidine (Pepcid) 20 mg PO DAILY LYNDSAY Pneumococcal Polyvalent Vaccine (Pneumovax 23 Vaccine) 0.5 ml IM .ONCE ONE Stop: 08/05/17 10:01 Rosuvastatin Calcium (Crestor) 5 mg PO HS LYNDSAY Tamsulosin HCl (Flomax) 0.4 mg PO DAILY LYNDSAY Temazepam (Restoril) 30 mg PO HS PRN PRN Reason: Insomnia Last Admin: 08/04/17 21:51 Dose: 30 mg Results - Vital Signs Recent Vital Signs: Last Vital Signs Temp 97.9 F 08/04/17 23:24 Pulse 74 08/04/17 23:24 Resp 20 08/04/17 23:24 BP 132/80 08/04/17 23:24 Pulse Ox 95 08/04/17 23:24 - Labs Result Diagrams: 08/04/17 14:27 08/04/17 14:27 Labs: Laboratory Results - last 24 hr 08/04/17 08/04/17 08/04/17 14:27 14:27 17:09 WBC 6.6 RBC 4.62 Hgb 13.5 Hct 40.0 MCV 86.7 MCH 29.2 MCHC 33.7 RDW 14.6 H Plt Count 268 MPV 7.3 Neut % (Auto) 65.4 Lymph % (Auto) 24.4 [place] % (Auto) 7.5 Eos % (Auto) 1.8 Baso % (Auto) 0.9 Neut # 4.3 Lymph # 1.6 [place] # 0.5 Eos # 0.1 Baso # 0.1 Sodium 135 Potassium 4.7 Chloride 101 Carbon Dioxide 21 L Anion Gap 18 BUN 35 H Creatinine 2.0 H Est GFR ( Amer) 38 Est GFR (Non-Af Amer) 32 POC Glucose (mg/dL) 106 Random Glucose 119 H Calcium 9.5 Urine Color Urine Clarity Urine pH Ur Specific [place] Urine Protein Urine Glucose (UA) Urine Ketones Urine Blood Urine Nitrate Urine Bilirubin Urine Urobilinogen Ur Leukocyte Esterase Urine WBC (Auto) Urine RBC (Auto) Ur Squamous Epith Cells Urine Bacteria 08/04/17 08/04/17 21:22 22:47 WBC RBC Hgb Hct MCV MCH MCHC RDW Plt Count MPV Neut % (Auto) Lymph % (Auto) [place] % (Auto) Eos % (Auto) Baso % (Auto) Neut # Lymph # [place] # Eos # Baso # Sodium Potassium Chloride Carbon Dioxide Anion Gap BUN Creatinine Est GFR ( Amer) Est GFR (Non-Af Amer) POC Glucose (mg/dL) 167 H Random Glucose Calcium Urine Color Yellow Urine Clarity Hazy Urine pH 5.0 Ur Specific [place] 1.018 Urine Protein 1+ H Urine Glucose (UA) Normal Urine Ketones Negative Urine Blood 1+ H Urine Nitrate Negative Urine Bilirubin Negative Urine Urobilinogen Normal Ur Leukocyte Esterase 2+ H Urine WBC (Auto) 103 H Urine RBC (Auto) 12 H Ur Squamous Epith Cells 1 Urine Bacteria Mod H Assessment & Plan - Date & Time Date: 08/05/17 (I have seen and examined the patient. I agree with the findings and plan of care as documented by Dr. Pinon. Medicine team consulted to help manage medical issues including diabetes, hypercholesterolemia , and insomnia. Continue home meds. Accuchecks and add on NISS as needed. Currently does not take any meds for diabetes at home. Dr. Lopez sees patients for heme/onc. Monitor for acute changes.) Time: 06:26 Attending/Attestation - Attestation I have personally seen and examined this patient.: Yes I have fully participated in the care of the patient.: Yes I have reviewed all pertinent clinical information: Yes
[2017-08-04 23:16] LABS: RBC URINE 12 /hpf (0-3); URINE BACTERIA MOD (<OCC); URINE BILIRUBIN NEGATIVE (NEGATIVE); URINE BLOOD 1+ (NEGATIVE); URINE COLOR Yellow (YELLOW); URINE GLUCOSE (UA) NORMAL (Normal); URINE KETONE NEGATIVE (NEGATIVE); URINE LEUKOCYTE ESTERASE 2+ Leu/uL (Negative); URINE PROTEIN 1+ mg/dL (NEGATIVE); URINE UROBILINOGEN NORMAL mg/dL (0.2-1.0); WBC URINE 103 /hpf (0-5)
[2017-08-05 07:31] LABS: INR 1.1
--- NOTE | 2017-08-05 07:31 | CON ---
DATE: 08/04/2017 UROLOGY CONSULTATION REASON FOR CONSULTATION: Hematuria and retention. HISTORY OF PRESENT ILLNESS: Mr. Peter is a very pleasant gentleman, I know quite well. He actually has 3 of the Urologist, he has Dr. Michi Levy, he also has in the past seen Dr. Nelson. In the meantime, he has had a nephroureterectomy with Dr. Nelson. From the urology standpoint, he also has urinary retention. He is previously had workup and treatment by us. Today, he comes in with basically abdominal pain, back pain, and flank pain. He has transitional cell carcinoma of the kidney, I do not know the current status in terms of metastatic workup and see the plans listed below. I do know that he came in where he said he was having difficulty voiding. Previously, a couple weeks ago, he was having retention. I spoke to the patient several times, and offered an appointment and treated with by Dr. Levy, and he said he was doing better. Even today, he does not think he is quite in retention see below. We have done a bladder scan and that bladder scan shows less than 100 mL. PAST MEDICAL AND SURGICAL HISTORY: Otherwise as listed. SOCIAL HISTORY: He lives alone, actually mostly cares of himself nephew with him. Otherwise unremarkable. PHYSICAL EXAMINATION: GENERAL: Resting comfortably in the gurney, he actually looks in no apparent distress. VITAL SIGNS: Noted. ABDOMEN: Relatively soft, not grossly distended at this point. No real CVA tenderness. RECTAL: Deferred. LABORATORY DATA: See chart. DIAGNOSES: History of urinary retention, history of hematuria, history of transitional cell carcinoma of the urinary system. He is status post a nephroureterectomy on the left side. From the urology standpoint, we are going to observe the patient, we will plus and minus medical treatments. Regarding further diagnostic studies of the back pain, he says he has current in terms of he is seeing oncology [place]aud. For further plan, we will follow depending what we find clinically. PLAN: As follows; 1. For now, no Lew catheter insertion. 2. Metastatic workup perhaps appropriate and then further plans, this was done as an inpatient depends on the ER and how the patient is doing clinically. Further plans will follow. Wilson Lancaster MD
[2017-08-05] MEDS ORDERED: HYDROmorphone 1 mg/ml ISec IVP ONE (08:58)
[2017-08-05] MEDS ORDERED: HYDROmorphone 0.5 mg/0.5 ml ISec IVP ONE ×2 (09:15→10:00)
[2017-08-05] MEDS ORDERED: Dextrose 50% SYRINGE Inj (50 ml) IV PRN (09:32)
[2017-08-05] MEDS ORDERED: Glucagon Recombinant 1 mg Inj IM PRN (09:32)
[2017-08-05] MEDS ORDERED: Pneumococcal 23-Valent Vaccine IM ONE (10:00)
[2017-08-05] MEDS ORDERED: (Novolin R) Insulin Human Regular 100 units/ml vial SC SCH (11:30)
--- NOTE | 2017-08-05 12:23 | CP.PCM.CON ---
History of Present Illness - History of Present Illness History of Present Illness: 89 yo man with history of high grade urothelial cancer, s/p left nephroureterectomy in 12/2016, developed recent urinary retention, requiring catheterization, c/o recent low back and rt. hip pain, not controlled with po pain meds at home. The patient sys he has had a poor appetite recently, denies difficulty urinating, nausea, vomiting or diarrhea. The patient denies fever, chills, night sweats, has weight loss of more than 10lbs in the past few weeks as per records. Recent PET scan done in [place] showing increased retroperitoneal L.N and bone lesions. Past Patient History - Infectious Disease Hx of Infectious Diseases: None - Past Medical History & Family History Past Medical History?: Yes - Past Social History Smoking Status: stopped 30 - CARDIAC Hx Hypercholesterolemia: Yes - PULMONARY Hx Respiratory Disorders: No - NEUROLOGICAL Hx Neurological Disorder: No - HEENT Hx HEENT Problems: Yes Hx Cataracts: Yes (surgery right eye) - RENAL Hx Chronic Kidney Disease: Yes - ENDOCRINE/METABOLIC Hx Diabetes Mellitus Type 2: Yes - HEMATOLOGICAL/ONCOLOGICAL Hx Blood Disorders: No - INTEGUMENTARY Hx Dermatological Problems: No - MUSCULOSKELETAL/RHEUMATOLOGICAL Hx Falls: No - GASTROINTESTINAL Hx Gall Bladder Disease: Yes - GENITOURINARY/GYNECOLOGICAL Hx Genitourinary Disorders: Yes Hx Bladder Cancer: Yes Hx Hematuria: Yes Hx Prostate Problems: Yes (enlarged prostate, partial prostatectomy) Hx Urinary Tract Infection: Yes - PSYCHIATRIC Hx Substance Use: No - SURGICAL HISTORY Hx Cholecystectomy: Yes Hx Coronary Artery Bypass Graft: Yes (x4) - ANESTHESIA Hx Anesthesia: Yes Hx Anesthesia Reactions: No Hx Malignant Hyperthermia: No Meds Allergies/Adverse Reactions: Allergies Allergy/AdvReac Type Severity Reaction Status Date / Time Penicillins Allergy RASH Verified 08/04/17 12:00 - Medications Medications: Current Medications Acetaminophen (Tylenol 325mg Tab) 650 mg PO Q6 PRN PRN Reason: Insomnia Last Admin: 08/05/17 04:25 Dose: 650 mg Aspirin (Aspirin Chewable) 81 mg PO DAILY LYNDSAY Last Admin: 08/05/17 09:59 Dose: 81 mg Dextrose (Dextrose 50% Inj) 0 ml IV STAT PRN; Protocol PRN Reason: Hyglycemia Protocol Dextrose (Glutose 15) 0 gm PO ONCE PRN; Protocol PRN Reason: Hypoglycemia Protocol Famotidine (Pepcid) 20 mg PO DAILY [facility] Last Admin: 08/05/17 09:59 Dose: 20 mg Glucagon (Glucagen Diagnostic Kit) 0 mg IM STAT PRN; Protocol PRN Reason: Hypoglycemia Protocol Dextrose (Dextrose 5% In Water 1000 Ml) 1,000 mls @ 0 mls/hr IV .Q0M PRN; Protocol; Per Protocol PRN Reason: Hypoglycemia Protocol Insulin Human Regular (Novolin R) 0 unit SC ACHS LYNDSAY PRN Reason: Protocol Last Admin: 08/05/17 11:38 Dose: Not Given Rosuvastatin Calcium (Crestor) 5 mg PO HS LYNDSAY Tamsulosin HCl (Flomax) 0.4 mg PO DAILY [facility] Last Admin: 08/05/17 09:59 Dose: 0.4 mg Temazepam (Restoril) 30 mg PO HS PRN PRN Reason: Insomnia Last Admin: 08/04/17 21:51 Dose: 30 mg Results - Vital Signs Recent Vital Signs: Last Vital Signs Temp 97.3 F L 08/05/17 08:59 Pulse 72 08/05/17 08:59 Resp 20 08/05/17 08:59 BP 148/79 08/05/17 08:59 Pulse Ox 95 08/05/17 08:59 - Labs Result Diagrams: 08/04/17 14:27 08/04/17 14:27 Labs: Laboratory Results - last 24 hr 08/04/17 08/04/17 08/04/17 14:27 14:27 17:09 WBC 6.6 RBC 4.62 Hgb 13.5 Hct 40.0 MCV 86.7 MCH 29.2 MCHC 33.7 RDW 14.6 H Plt Count 268 MPV 7.3 Neut % (Auto) 65.4 Lymph % (Auto) 24.4 [place] % (Auto) 7.5 Eos % (Auto) 1.8 Baso % (Auto) 0.9 Neut # 4.3 Lymph # 1.6 [place] # 0.5 Eos # 0.1 Baso # 0.1 PT INR APTT Sodium 135 Potassium 4.7 Chloride 101 Carbon Dioxide 21 L Anion Gap 18 BUN 35 H Creatinine 2.0 H Est GFR ( Amer) 38 Est GFR (Non-Af Amer) 32 POC Glucose (mg/dL) 106 Random Glucose 119 H Calcium 9.5 Urine Color Urine Clarity Urine pH Ur Specific [place] Urine Protein Urine Glucose (UA) Urine Ketones Urine Blood Urine Nitrate Urine Bilirubin Urine Urobilinogen Ur Leukocyte Esterase Urine WBC (Auto) Urine RBC (Auto) Ur Squamous Epith Cells Urine Bacteria 08/04/17 08/04/17 08/05/17 21:22 22:47 07:10 WBC RBC Hgb Hct MCV MCH MCHC RDW Plt Count MPV Neut % (Auto) Lymph % (Auto) [place] % (Auto) Eos % (Auto) Baso % (Auto) Neut # Lymph # [place] # Eos # Baso # PT INR APTT Sodium Potassium Chloride Carbon Dioxide Anion Gap BUN Creatinine Est GFR ( Amer) Est GFR (Non-Af Amer) POC Glucose (mg/dL) 167 H 129 H Random Glucose Calcium Urine Color Yellow Urine Clarity Hazy Urine pH 5.0 Ur Specific [place] 1.018 Urine Protein 1+ H Urine Glucose (UA) Normal Urine Ketones Negative Urine Blood 1+ H Urine Nitrate Negative Urine Bilirubin Negative Urine Urobilinogen Normal Ur Leukocyte Esterase 2+ H Urine WBC (Auto) 103 H Urine RBC (Auto) 12 H Ur Squamous Epith Cells 1 Urine Bacteria Mod H 08/05/17 07:16 WBC RBC Hgb Hct MCV MCH MCHC RDW Plt Count MPV Neut % (Auto) Lymph % (Auto) [place] % (Auto) Eos % (Auto) Baso % (Auto) Neut # Lymph # [place] # Eos # Baso # PT 12.3 H INR 1.1 APTT 31 Sodium Potassium Chloride Carbon Dioxide Anion Gap BUN Creatinine Est GFR ( Amer) Est GFR (Non-Af Amer) POC Glucose (mg/dL) Random Glucose Calcium Urine Color Urine Clarity Urine pH Ur Specific [place] Urine Protein Urine Glucose (UA) Urine Ketones Urine Blood Urine Nitrate Urine Bilirubin Urine Urobilinogen Ur Leukocyte Esterase Urine WBC (Auto) Urine RBC (Auto) Ur Squamous Epith Cells Urine Bacteria Assessment & Plan (1) Hx of bladder cancer Assessment and Plan: 89 yo with recent surgery for high grade bladder cancer, new bone lesions with increased retroperitoneal lymphadenopathy, r/o metastatic disease. Pain control with low dose narcotic meds, XRay L-S spine, biopsy of nodes or saccral spine met, whichever one is accessible Status: Acute
--- NOTE | 2017-08-05 13:07 | CP.PCM.PN ---
<Hodan Moorea - Last Filed: 08/05/17 13:04> Subjective - Date & Time of Evaluation Date of Evaluation: 08/05/17 Time of Evaluation: 09:00 - Subjective Subjective: Medicine Consult Note for Dr. Lopes Patient was seen and examined at bedside. Patient reports he has decreased appetite, weakness and fatigued. Denied fever, chills, headache, chest pain, abdominal pain, n/v/d/c, or urinary symptoms. Objective - Vital Signs/Intake and Output Vital Signs (last 24 hours): Temp Pulse Resp BP Pulse Ox 97.3 F L 72 20 148/79 95 08/05/17 08:59 08/05/17 08:59 08/05/17 08:59 08/05/17 08:59 08/05/17 08:59 Intake and Output: 08/05/17 08/05/17 06:59 18:59 Intake Total 240 Output Total 650 Balance -410 - Medications Medications: Current Medications Acetaminophen (Tylenol 325mg Tab) 650 mg PO Q6 PRN PRN Reason: Insomnia Last Admin: 08/05/17 04:25 Dose: 650 mg Aspirin (Aspirin Chewable) 81 mg PO DAILY [facility] Last Admin: 08/05/17 09:59 Dose: 81 mg Dextrose (Dextrose 50% Inj) 0 ml IV STAT PRN; Protocol PRN Reason: Hyglycemia Protocol Dextrose (Glutose 15) 0 gm PO ONCE PRN; Protocol PRN Reason: Hypoglycemia Protocol Famotidine (Pepcid) 20 mg PO DAILY [facility] Last Admin: 08/05/17 09:59 Dose: 20 mg Glucagon (Glucagen Diagnostic Kit) 0 mg IM STAT PRN; Protocol PRN Reason: Hypoglycemia Protocol Dextrose (Dextrose 5% In Water 1000 Ml) 1,000 mls @ 0 mls/hr IV .Q0M PRN; Protocol; Per Protocol PRN Reason: Hypoglycemia Protocol Insulin Human Regular (Novolin R) 0 unit SC ACHS LYNDSAY PRN Reason: Protocol Last Admin: 08/05/17 11:38 Dose: Not Given Rosuvastatin Calcium (Crestor) 5 mg PO HS LYNDSAY Tamsulosin HCl (Flomax) 0.4 mg PO DAILY [facility] Last Admin: 08/05/17 09:59 Dose: 0.4 mg Temazepam (Restoril) 30 mg PO HS PRN PRN Reason: Insomnia Last Admin: 08/04/17 21:51 Dose: 30 mg - Labs Labs: 08/04/17 14:27 08/04/17 14:27 PT 12.3 SECONDS (9.7-12.2) H 08/05/17 07:16 INR 1.1 08/05/17 07:16 APTT 31 SECONDS (21-34) 08/05/17 07:16 - Additional Findings Additional findings: - Head Exam Head Exam: ATRAUMATIC, NORMAL INSPECTION - Eye Exam Eye Exam: EOMI Pupil Exam: PERRL - ENT Exam ENT Exam: Mucous Membranes Moist - Respiratory Exam Respiratory Exam: Decreased Breath Sounds, NORMAL BREATHING PATTERN. absent: Rhonchi, Wheezes, Respiratory Distress - Cardiovascular Exam Cardiovascular Exam: REGULAR RHYTHM, RRR, +S1, +S2 - GI/Abdominal Exam GI & Abdominal Exam: Normal Bowel Sounds, Soft. absent: Distended, Firm, Tenderness - Extremities Exam Extremities exam: Positive for: tenderness (Left knee, left galindo, left ankle), pedal pulses present Additional comments: - Back Exam Back exam: vertebral tenderness. absent: CVA tenderness (L), CVA tenderness (R) - Neurological Exam Neurological exam: Alert, Oriented x3 - Psychiatric Exam Psychiatric exam: Normal Affect, Normal Mood - Skin Skin Exam: Dry, Intact, Normal Color, Warm Assessment and Plan - Assessment and Plan (Free Text) Plan: Diabetes * Hga1c 7.5 (06/2017) * Accuchecks * Endocrinology consulted- Dr. Samano - help appreciated * Patient has poor appetite will monitor for hypoglycemia * Ensures added as supplements * ISS-low Hx of Bladder Cancer Lymphadenopathy * Patient had imaging/scan with their hem/onc doctor, Dr. Fermin, for suprapubic pain and lymphadenopathy. Patient does not have results from imaging study. Patient has a history of bladder cancer. * Follow recommendations as per Dr. Fermin, help appreciated. * CT Guided biopsy - planned for 08/07/17 BPH (benign prostatic hyperplasia) * Continue home medication- Flomax 0.4mg PO daily. Hypercholesterolemia * Continue Crestor 5mg PO HS Insomnia * Continue Temazepam 30mg PO HS prn Prophylactic measure * GI PPX: Pepcid 20mg PO daily * DVT PPX: SCDs, heparin held due to anticipated biopsy * Heart Healthy Diet with moderate carbohydrates * Ensures added as supplements * PT/OT- patient refuses [facility], but needs PT in house, will see if he qualifies for home PT Medicine Team consulted, we will follow this patient closely. DW Dr. Lopes, Teresa BARR, PGY1 <Madeline Gerber - Last Filed: 08/05/17 17:06> Objective - Vital Signs/Intake and Output Vital Signs (last 24 hours): Temp Pulse Resp BP Pulse Ox 98 F 66 20 167/80 H 95 08/05/17 16:00 08/05/17 16:00 08/05/17 16:00 08/05/17 16:00 08/05/17 16:00 Intake and Output: 08/05/17 08/05/17 06:59 18:59 Intake Total 240 450 Output Total 650 Balance -410 450 - Medications Medications: Current Medications Acetaminophen (Tylenol 325mg Tab) 650 mg PO Q6 PRN PRN Reason: Insomnia Last Admin: 08/05/17 14:08 Dose: 650 mg Aspirin (Aspirin Chewable) 81 mg PO DAILY [facility] Last Admin: 08/05/17 09:59 Dose: 81 mg Dextrose (Dextrose 50% Inj) 0 ml IV STAT PRN; Protocol PRN Reason: Hyglycemia Protocol Dextrose (Glutose 15) 0 gm PO ONCE PRN; Protocol PRN Reason: Hypoglycemia Protocol Enoxaparin Sodium (Lovenox) 30 mg SC Q12 [facility] Famotidine (Pepcid) 20 mg PO DAILY [facility] Last Admin: 08/05/17 09:59 Dose: 20 mg Glucagon (Glucagen Diagnostic Kit) 0 mg IM STAT PRN; Protocol PRN Reason: Hypoglycemia Protocol Hydromorphone HCl (Dilaudid) 1 mg IVP Q4H PRN PRN Reason: Pain, moderate (4-7) Dextrose (Dextrose 5% In Water 1000 Ml) 1,000 mls @ 0 mls/hr IV .Q0M PRN; Protocol; Per Protocol PRN Reason: Hypoglycemia Protocol Insulin Human Regular (Novolin R) 0 unit SC ACHS [facility] PRN Reason: Protocol Rosuvastatin Calcium (Crestor) 5 mg PO HS LYNDSAY Tamsulosin HCl (Flomax) 0.4 mg PO DAILY [facility] Last Admin: 08/05/17 09:59 Dose: 0.4 mg Temazepam (Restoril) 30 mg PO HS PRN PRN Reason: Insomnia Last Admin: 08/04/17 21:51 Dose: 30 mg - Labs Labs: 08/04/17 14:27 08/04/17 14:27 PT 12.3 SECONDS (9.7-12.2) H 08/05/17 07:16 INR 1.1 08/05/17 07:16 APTT 31 SECONDS (21-34) 08/05/17 07:16 Attending/Attestation - Attestation I have personally seen and examined this patient.: Yes I have fully participated in the care of the patient.: Yes I have reviewed all pertinent clinical information, including history, physical exam and plan: Yes Notes (Text): This is a 89years old man with history of bladder cancer, s/p left nephroureterectomy in 12/2016, urinary retention, requiring catheterization, chronic elevation of creatinine,h/o DM was send by Dr Fermin.He was complaining of back and lower abdominal pain. He was seen and examined with resident this morning for follow up. complaining of lower abdominal pain,denies any difficulty in urinatingThe patient says he has had a poor appetite recently.Denies weight loss Records shows weight loss. As per oncologist he had recent PET scan done in [place] showing increased retroperitoneal L.N and bone lesions. 1.Bladder cancer,bone lesion and Enlarged LN Going for LN biopsy by IR on 08/07/2017 continue dilaudid for his pain follow oncologist ,monitor creatinine 2.Poor appetite supplements. 3.Diabetes mellitus not on meds * Hga1c 7.5 (06/2017) * Accuchecks * Endocrinology consulted- Dr. Samano - help appreciated * Patient has poor appetite will monitor for hypoglycemia * Ensures added as supplements 4.BPH (benign prostatic hyperplasia) * Continue home medication- Flomax 0.4mg PO daily. 5. Hypercholesterolemia * Continue Crestor 5mg PO HS 6. Insomnia * Continue Temazepam 30mg PO HS prn 7. Prophylactic measure * GI PPX: Pepcid 20mg PO daily * DVT PPX: SCDs, heparin held due to anticipated biopsy * Heart Healthy Diet with moderate carbohydrates * Ensures added as supplements * PT/OT- patient refuses [facility], but needs PT in house, will see if he qualifies for home PT 08/05/17 17:01
[2017-08-05] MEDS: (Novolin R) Insulin Human Regular 100 units/ml vial SC SCH ×2 (16:30→21:30)
[2017-08-05] MEDS ORDERED: HYDROmorphone 1 mg/ml ISec IVP PRN (16:38)
[2017-08-05] MEDS: HYDROmorphone 0.5 mg/0.5 ml ISec IVP PRN (18:13)
--- NOTE | 2017-08-05 19:35 | CON ---
DATE: ENDOCRINOLOGY CONSULT LOCATION: In room 369. HISTORY OF PRESENT ILLNESS: This is an 89-year-old male with known history of bladder carcinoma presenting here with severe lower abdominal pain and radiculopathy and is now being referred for further diabetic management because of recent hyperglycemic accelerations as noted thereof. PAST MEDICAL HISTORY: History of type 2 diabetes, previously on oral hypoglycemic therapy and currently off medications at this time. History of hypertensive cardiovascular disease and dyslipidemia, history of diabetic retinopathy, polyneuropathy, and nephropathy with chronic kidney disease, history of coronary artery disease with previous quadruple coronary artery bypass graft surgery as noted. History of a prior cholecystectomy from underlying cholelithiasis, history of lumber disc disease with severe low back pain with radiculopathy, history of benign prostatic hypertrophy with previous episodes of urinary retention, also the prior left urethral stricture as noted thereof. FAMILY HISTORY: Positive for diabetes and hypertension. REVIEW OF SYSTEMS: As mentioned above, admits to generalized body weakness with easy fatigability, tiredness, and suboptimal energy level. Also admits to episodic bouts of dizziness and lightheadedness, worse on the day of admission. No chest pains, palpitations or PNDs. His oral intake is variable with nausea, dyspepsia and vague upper abdominal pains. PHYSICAL EXAMINATION: GENERAL: This is an average built male, in no apparent distress. VITAL SIGNS: Blood pressure 140/80, pulse of 70 beats per minute and regular, temperature 98, respirations 20. Height is 6 feet, weight is 170 pounds. HEENT: Head is normocephalic. Eyes: Anicteric with pink conjunctivae. Funduscopy not possible at this time. Ears, nose, and throat are otherwise normal. NECK: Supple. Thyroid gland is normal size. No carotid bruits or any cervical adenopathy. CARDIOPULMONARY: Adynamic precordium. S1 and S2 is rapid and regular. LUNGS: Clear to auscultation. ABDOMEN: Flat and soft with positive bowel sounds. EXTREMITIES: No peripheral edema. Pulses are +2 bilaterally. LABORATORY DATA: His glucose levels have ranged from 106 to 129 and 167 mg/dL. His chemistry showed a BUN of 35, sodium 135, potassium 4.7, chloride 101, CO2 21, glucose 119, and creatinine is 2.0. ASSESSMENT: This is an 89-year-old male with uncontrolled and decompensated type 2 diabetes of recent onset with oral hypoglycemic therapy as given. He also has diabetic microvascular complications of retinopathy, polyneuropathy, and nephropathy with underlying chronic kidney disease. Moreover, he also has diabetic macrovascular complications of coronary artery disease and peripheral arterial disease and vasculopathy. PLAN OF MANAGEMENT: As discussed with the patient and staff, we will actually modify his sliding scale coverage being given a low dose correction scale to hypoglycemia and detailed orders have been given. We will observe his glycemic fluctuations and if hyperglycemic levels supervene, then we will start him on a very low dose of DPP-4 inhibitor such as Januvia given us 25 mg once daily as indicated. We will obtain serial chemistries and supplement accordingly as needed. We will also obtain baseline thyroid function studies and serial chemistries thereof. We will hold off any active ongoing oral hypoglycemic therapy and observe glycemic fluctuations thereof. We will follow with you. Sharon Samano MD
[2017-08-05] MEDS ORDERED: Enoxaparin 30 mg Syringe SC SCH (22:00)
[2017-08-06] MEDS: HYDROmorphone 0.5 mg/0.5 ml ISec IVP PRN ×4 (02:15→19:20)
--- NOTE | 2017-08-06 07:16 | CP.PCM.PN ---
<Sunita Moore - Last Filed: 08/06/17 11:55> Subjective - Date & Time of Evaluation Date of Evaluation: 08/06/17 Time of Evaluation: 09:00 - Subjective Subjective: Medicine Consult Note for Dr. Lopes Patient was seen and examined at bedside. Patient reports he has decreased appetite, weakness and fatigued. Denied fever, chills, headache, chest pain, abdominal pain, n/v/d/c, or urinary symptoms. Objective - Vital Signs/Intake and Output Vital Signs (last 24 hours): Temp Pulse Resp BP Pulse Ox 98.3 F 64 20 138/69 96 08/05/17 23:23 08/05/17 23:23 08/05/17 23:23 08/05/17 23:23 08/05/17 23:23 Intake and Output: 08/06/17 08/06/17 06:59 18:59 Intake Total 540 Output Total 450 Balance 90 - Medications Medications: Current Medications Acetaminophen (Tylenol 325mg Tab) 650 mg PO Q6 PRN PRN Reason: Insomnia Last Admin: 08/05/17 21:28 Dose: 650 mg Aspirin (Aspirin Chewable) 81 mg PO DAILY [facility] Last Admin: 08/05/17 09:59 Dose: 81 mg Dextrose (Dextrose 50% Inj) 0 ml IV STAT PRN; Protocol PRN Reason: Hyglycemia Protocol Dextrose (Glutose 15) 0 gm PO ONCE PRN; Protocol PRN Reason: Hypoglycemia Protocol Enoxaparin Sodium (Lovenox) 30 mg SC Q12 [facility] Last Admin: 08/05/17 21:30 Dose: 30 mg Famotidine (Pepcid) 20 mg PO DAILY [facility] Last Admin: 08/05/17 09:59 Dose: 20 mg Glucagon (Glucagen Diagnostic Kit) 0 mg IM STAT PRN; Protocol PRN Reason: Hypoglycemia Protocol Hydromorphone HCl (Dilaudid) 1 mg IVP Q4H PRN PRN Reason: Pain, moderate (4-7) Last Admin: 08/06/17 02:15 Dose: 1 mg Dextrose (Dextrose 5% In Water 1000 Ml) 1,000 mls @ 0 mls/hr IV .Q0M PRN; Protocol; Per Protocol PRN Reason: Hypoglycemia Protocol Aztreonam 2 gm/ Sodium (Chloride) 100 mls @ 200 mls/hr IVPB Q8H [facility] Insulin Human Regular (Novolin R) 0 unit SC ACHS [facility] PRN Reason: Protocol Last Admin: 08/05/17 21:30 Dose: Not Given Rosuvastatin Calcium (Crestor) 5 mg PO HS [facility] Last Admin: 08/05/17 21:28 Dose: 5 mg Tamsulosin HCl (Flomax) 0.4 mg PO DAILY [facility] Last Admin: 08/05/17 09:59 Dose: 0.4 mg Temazepam (Restoril) 30 mg PO HS PRN PRN Reason: Insomnia Last Admin: 08/05/17 21:28 Dose: 30 mg - Labs Labs: 08/04/17 14:27 08/04/17 14:27 PT 12.3 SECONDS (9.7-12.2) H 08/05/17 07:16 INR 1.1 08/05/17 07:16 APTT 31 SECONDS (21-34) 08/05/17 07:16 - Constitutional Appears: Toxic, No Acute Distress, Unkempt, Cachectic, Chronically Ill - Head Exam Head Exam: NORMAL INSPECTION, NORMOCEPHALIC - Eye Exam Eye Exam: EOMI, Normal appearance, PERRL - ENT Exam ENT Exam: Mucous Membranes Dry - Respiratory Exam Respiratory Exam: Clear to Ausculation Bilateral, NORMAL BREATHING PATTERN. absent: Decreased Breath Sounds, Rhonchi, Wheezes - Cardiovascular Exam Cardiovascular Exam: REGULAR RHYTHM, RRR, +S1, +S2 - GI/Abdominal Exam GI & Abdominal Exam: Soft, Normal Bowel Sounds. absent: Distended, Tenderness - Extremities Exam Extremities Exam: Normal Inspection. absent: Pedal Edema, Tenderness - Neurological Exam Neurological Exam: Alert, Awake, CN II-XII Intact, Oriented x3 - Psychiatric Exam Psychiatric exam: Depressed - Skin Skin Exam: Dry, Intact, Normal Color, Warm Assessment and Plan - Assessment and Plan (Free Text) Plan: Diabetes * Hga1c 7.5 (06/2017) * Accuchecks * Endocrinology consulted- Dr. Samano - help appreciated * Patient has poor appetite will monitor for hypoglycemia * Ensures added as supplements * Beating Machine Operator referral due to poor appetite and newly diagnosed diabetic * ISS-low Hx of Bladder Cancer S/P Left Nephrectomy 12/2016 Lymphadenopathy * Patient had imaging/scan with their hem/onc doctor, Dr. Fermin, for suprapubic pain and lymphadenopathy. Patient does not have results from imaging study. Patient has a history of bladder cancer. * Follow recommendations as per Dr. Fermin, help appreciated. * CT Guided biopsy - planned for 08/07/17 * Diluadid 1mg PRN pain Urinary Tract Infection Colonized? * ID consulted - Dr. Salas- help appreciated * UA: + LE * f/u urine culture * Aztreonam 2gm Q8H 2/2 PCN allergy - (past urine cultures were resistant to Cipro) BPH (benign prostatic hyperplasia) * Continue home medication- Flomax 0.4mg PO daily. Hypercholesterolemia * Continue Crestor 5mg PO HS Insomnia * Continue Temazepam 30mg PO HS prn Prophylactic measure * GI PPX: Pepcid 20mg PO daily * DVT PPX: SCDs, will restart lovenox after biopsy * Heart Healthy Diet with moderate carbohydrates * Ensures added as supplements * Beating Machine Operator referral * PT/OT- patient refuses [facility], but needs PT in house, will see if he qualifies for home PT Medicine Team consulted, we will follow this patient closely. DW Teresa Espana DO, PGY1 <Madeline Gerber - Last Filed: 08/06/17 16:51> Objective - Vital Signs/Intake and Output Vital Signs (last 24 hours): Temp Pulse Resp BP Pulse Ox 97.8 F 76 20 146/79 95 08/06/17 16:00 08/06/17 16:00 08/06/17 16:00 08/06/17 16:00 08/06/17 16:00 Intake and Output: 08/06/17 08/06/17 06:59 18:59 Intake Total 540 340 Output Total 450 400 Balance 90 -60 - Medications Medications: Current Medications Acetaminophen (Tylenol 325mg Tab) 650 mg PO Q6 PRN PRN Reason: Insomnia Last Admin: 08/05/17 21:28 Dose: 650 mg Aspirin (Aspirin Chewable) 81 mg PO DAILY [facility] Last Admin: 08/06/17 10:04 Dose: 81 mg Dextrose (Dextrose 50% Inj) 0 ml IV STAT PRN; Protocol PRN Reason: Hyglycemia Protocol Dextrose (Glutose 15) 0 gm PO ONCE PRN; Protocol PRN Reason: Hypoglycemia Protocol Enoxaparin Sodium (Lovenox) 30 mg SC DAILY [facility] Last Admin: 08/06/17 10:04 Dose: 30 mg Famotidine (Pepcid) 20 mg PO DAILY [facility] Last Admin: 08/06/17 10:11 Dose: 20 mg Glucagon (Glucagen Diagnostic Kit) 0 mg IM STAT PRN; Protocol PRN Reason: Hypoglycemia Protocol Hydromorphone HCl (Dilaudid) 1 mg IVP Q4H PRN PRN Reason: Pain, moderate (4-7) Last Admin: 08/06/17 14:56 Dose: 1 mg Dextrose (Dextrose 5% In Water 1000 Ml) 1,000 mls @ 0 mls/hr IV .Q0M PRN; Protocol; Per Protocol PRN Reason: Hypoglycemia Protocol Aztreonam 1 gm/ Sodium (Chloride) 100 mls @ 200 mls/hr IVPB Q8H [facility] Last Admin: 08/06/17 10:06 Dose: 200 mls/hr Insulin Human Regular (Novolin R) 0 unit SC ACHS [facility] PRN Reason: Protocol Last Admin: 08/06/17 13:39 Dose: Not Given Rosuvastatin Calcium (Crestor) 5 mg PO HS [facility] Last Admin: 08/05/17 21:28 Dose: 5 mg Tamsulosin HCl (Flomax) 0.4 mg PO DAILY [facility] Last Admin: 08/06/17 10:04 Dose: 0.4 mg Temazepam (Restoril) 30 mg PO HS PRN PRN Reason: Insomnia Last Admin: 08/05/17 21:28 Dose: 30 mg - Labs Labs: 08/06/17 07:03 08/06/17 07:03 PT 12.3 SECONDS (9.7-12.2) H 08/05/17 07:16 INR 1.1 08/05/17 07:16 APTT 31 SECONDS (21-34) 08/05/17 07:16 Attending/Attestation - Attestation I have personally seen and examined this patient.: Yes I have fully participated in the care of the patient.: Yes I have reviewed all pertinent clinical information, including history, physical exam and plan: Yes Notes (Text): Patient was seen and examined this afternoon with resident.No complain,pain is better with pain meds.passing urine His appetite is poor and h/o recent weight loss.Not want to go to rehab this is a 89years old man with history of bladder cancer, s/p left nephroureterectomy in 12/2016, urinary retention, requiring catheterization, chronic elevation of creatinine,h/o DM was send by Dr Fermin. As per oncologist he had recent PET scan done in [place] showing increased retroperitoneal L.N and bone lesions. 1.Bladder cancer,bone lesion and Enlarged LN Going for LN biopsy by IR on 08/07/2017 continue dilaudid for his pain follow oncologist ,monitor creatinine.His creatinine remains stable during this admission.Continue flomax Poor appetite-encourage supplement. Diabetes with HA1c 7.5 * Endocrinology consulted- Dr. Samano - help appreciated * Patient has poor appetite will monitor for hypoglycemia * Continue Temazepam 30mg PO HS prn GI PPX: Pepcid 20mg PO daily * DVT PPX: SCDs, heparin held due to anticipated biopsy * Heart Healthy Diet with moderate carbohydrates * Ensures added as supplements * PT/OT- patient refuses [facility], but needs PT in house, will see if he qualifies for home PT
[2017-08-06 07:25] LABS: BASO % 0.5 % (0.0-2.0); EOS # 0.1 K/uL (0.0-0.7); EOS % 2.3 % (0.0-4.0); HEMATOCRIT 39.2 % (35.0-51.0); LYMPH # 1.5 K/uL (1.0-4.3); LYMPH % 24.7 % (20.0-40.0); MEAN CELL VOLUME 86.5 fL (80.0-94.0); MEAN CORPUSCULAR HEMOGLOBIN 28.6 pg (27.0-31.0); MEAN CORPUSCULAR HGB CONC 33.1 g/dL (33.0-37.0); MEAN PLATELET VOLUME 7.8 fL (7.2-11.7); MONO # 0.5 K/uL (0.0-0.8); MONO % 8.2 % (0.0-10.0); RED CELL DISTRIBUTION WIDTH 14.4 % (11.5-14.5); WHITE BLOOD COUNT 6.2 K/uL (4.8-10.8)
[2017-08-06 07:51] LABS: POTASSIUM 4.4 mmol/L (3.6-5.2)
[2017-08-06 07:53] LABS: ALB/GLOB RATIO 1.1 (1.0-2.1); BILIRUBIN,TOTAL 0.7 mg/dL (0.2-1.3); PHOSPHOROUS 3.5 mg/dL (2.5-4.5); TOTAL PROTEIN 8.2 g/dL (6.3-8.3)
[2017-08-06 07:54] LABS: CALCIUM 9.1 mg/dl (8.6-10.4); MAGNESIUM 2.2 mg/dL (1.6-2.3)
[2017-08-06 08:12] LABS: THYROID STIMULATING HORMONE 1.62 mIU/L (0.46-4.68)
[2017-08-06] MEDS: (Novolin R) Insulin Human Regular 100 units/ml vial SC SCH ×4 (08:36→21:14)
[2017-08-06] MEDS: Enoxaparin 30 mg Syringe SC SCH (10:04)
--- NOTE | 2017-08-06 10:05 | PCM.URO ---
Urology Progress Note - General General: No Complaints, Tolerating Diet - Subjective Abdominal Pain: Yes Flank Pain: No Nausea: No Vomiting: No Voiding Well: Yes Hematuria: No [place]: Yes Chest Pain: No Fever & Chills: No - Objective Lab Results Last 24 Hours: Laboratory Results - last 24 hr 08/05/17 08/05/17 08/05/17 11:30 15:52 21:28 WBC RBC Hgb Hct MCV MCH MCHC RDW Plt Count MPV Neut % (Auto) Lymph % (Auto) [place] % (Auto) Eos % (Auto) Baso % (Auto) Neut # Lymph # [place] # Eos # Baso # Sodium Potassium Chloride Carbon Dioxide Anion Gap BUN Creatinine Est GFR ( Amer) Est GFR (Non-Af Amer) POC Glucose (mg/dL) 132 H 159 H 132 H Random Glucose Hemoglobin A1c Calcium Phosphorus Magnesium Total Bilirubin AST ALT Alkaline Phosphatase Total Protein Albumin Globulin Albumin/Globulin Ratio [facility] 3rd Generation 08/06/17 08/06/17 08/06/17 07:03 07:03 07:03 WBC 6.2 RBC 4.54 Hgb 13.0 Hct 39.2 MCV 86.5 MCH 28.6 MCHC 33.1 RDW 14.4 Plt Count 273 MPV 7.8 Neut % (Auto) 64.3 Lymph % (Auto) 24.7 [place] % (Auto) 8.2 Eos % (Auto) 2.3 Baso % (Auto) 0.5 Neut # 4.0 Lymph # 1.5 [place] # 0.5 Eos # 0.1 Baso # 0.0 Sodium 137 Potassium 4.4 Chloride 100 Carbon Dioxide 23 Anion Gap 19 BUN 35 H Creatinine 2.0 H Est GFR ( Amer) 38 Est GFR (Non-Af Amer) 32 POC Glucose (mg/dL) Random Glucose 129 H Hemoglobin A1c 7.9 H Calcium 9.1 Phosphorus 3.5 Magnesium 2.2 Total Bilirubin 0.7 AST 22 ALT 22 Alkaline Phosphatase 80 Total Protein 8.2 Albumin 4.3 Globulin 4.0 H Albumin/Globulin Ratio 1.1 TSH 3rd Generation 1.62 08/06/17 07:49 WBC RBC Hgb Hct MCV MCH MCHC RDW Plt Count MPV Neut % (Auto) Lymph % (Auto) [place] % (Auto) Eos % (Auto) Baso % (Auto) Neut # Lymph # [place] # Eos # Baso # Sodium Potassium Chloride Carbon Dioxide Anion Gap BUN Creatinine Est GFR ( Amer) Est GFR (Non-Af Amer) POC Glucose (mg/dL) 124 H Random Glucose Hemoglobin A1c Calcium Phosphorus Magnesium Total Bilirubin AST ALT Alkaline Phosphatase Total Protein Albumin Globulin Albumin/Globulin Ratio TSH 3rd Generation Intake & Output: Intake & Output 08/05/17 08/06/17 08/06/17 18:59 06:59 18:59 Intake Total 450 540 Output Total 450 Balance 450 90 Intake: Oral 450 540 Output: Urine 450 Urine, Voided 450 Other: # Voids Urine, Voided 2 2 # Bowel Movements 0 0 Vital Signs: Vital Signs - 24 hr 08/05/17 08/05/17 08/05/17 13:00 14:02 16:00 Temperature 97.9 F 98 F Pulse Rate 79 66 66 Respiratory 20 20 Rate Blood Pressure 153/70 H 167/80 H O2 Sat by Pulse 98 95 Oximetry 08/05/17 23:23 Temperature 98.3 F Pulse Rate 64 Respiratory 20 Rate Blood Pressure 138/69 O2 Sat by Pulse 96 Oximetry - Physical Exam Abdominal Exam: Soft, Non-Tender, Non-Distended Back: No CVA Tenderness Genitalia: Without Inflammation - Plan Additional Information: Imp: urologically stable. urothelial carcinoma. solitary kidney. poss uti. rec/p: as per medical oncology. culture. antibiotic rx - Date & Time of Note Date: 08/06/17 Time: 10:04
[2017-08-06] MEDS: Aztreonam 1 GM in Sodium Chloride 0.9% 100 ML IVPB SCH ×2 (10:06→17:35)
--- NOTE | 2017-08-06 17:21 | PN ---
DATE: ENDOCRINOLOGY FOLLOWUP NOTE LOCATION: In room 369. This is an 89-year-old male with known history of type 2 diabetes, hypertension, presenting here with diffuse abdominal pain and is currently being followed closely by Urology with a significant history of bladder carcinoma and is also being followed closely for metabolic management. His oral intake remains quite variable as per the nursing staff and glucose values are fluctuating but improved with levels ranging today from 119-124 mg/dL. His latest chemistry shows a BUN of 35, sodium 137, potassium 4.4, chloride 100, CO2 23, glucose 129, and creatinine 2.0. His hemoglobin A1c 7.9%, which is slightly elevated and indicative of suboptimal metabolic control of his diabetic condition. However, because of the variability of his oral intake and also the suboptimal meal portions, we will hold off the initiation of oral hypoglycemic drug therapy for now as noted. With his advanced age and also with suboptimal meal portions, it will be more prudent to keep him on the slight glucose intolerance level than to be aggressive and giving him oral hypoglycemic drug therapy and causing hypoglycemia instead. We will obtain serial chemistries and supplement accordingly as needed. We will continue the low dose correction scale using regular insulin as ordered. We will follow and advise accordingly. Sharon Samano MD
--- NOTE | 2017-08-06 18:10 | CP.PCM.CON ---
History of Present Illness - History of Present Illness History of Present Illness: 89 year old male with a past medical history of bladder cancer, BPH, left urethral stricture, urinary retention, CAD, DM2, HLD, and lumbar herniated discs. He was recently discharged from hospital 2 weeks ago s/p urinary retention with UTI. He presented to the ED today complaining of bilateral suprapubic abdominal pain that started two weeks ago and progressively worsened. referred for ID eval for possible superimposed infection history of high grade urothelial cancer, s/p left nephroureterectomy in 12/2016, developed recent urinary retention, requiring catheterization, c/o recent low back and rt. hip pain, not controlled with po pain meds at home. The patient sys he has had a poor appetite recently, denies difficulty urinating, nausea, vomiting or diarrhea. The patient denies fever, chills, night sweats, has weight loss of more than 10lbs in the past few weeks as per records. Recent PET scan done in [place] showing increased retroperitoneal L.N and bone lesions. 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 Patient recently saw Dr. Kim (Heme/Onc) for his suprapubic abdominal pain. Patient reports he had imaging/scan of his lymph nodes done, which is what prompted Dr. Fermin to send the patient to the ED. Patient also complains of moderate to severe low back pain that radiates to the right buttock and leg which started months ago but has also worsened. The pain has been manageable with Tylenol at home, but greatly worsens at night and interrupts his sleep. Denies any ill contacts, fever, chills, nausea, vomiting , diarrhea, constipation, or urinary changes. Patient was given Dilaudid for pain in ED. At time of exam, patient is resting comfortably with no pain compared to arrival at ED. Review of Systems - Constitutional Constitutional: As Per HPI - EENT Eyes: absent: As Per HPI, Blind Spots, Blurred Vision, Change in Vision, Decreased Night Vision, Diplopia, Discharge, Dry Eye, Exophthalmos, Floaters, Irritation, Itchy Eyes, Loss of Peripheral Vision, Pain, Photophobia, Requires Corrective Lenses, Sees Flashes, Spots in Vision, Tunnel Vision, Other Visual Disturbances, Loss of Vision, Other Ears: absent: As Per HPI, Decreased Hearing, Ear Discharge, Ear Pain, Tinnitus, Abnormal Hearing, Disequilibrium, Dizziness, Other Nose/Mouth/Throat: absent: As Per HPI, Epistaxis, Nasal Congestion, Nasal Discharge, Nasal Obstruction, Nasal Trauma, Nose Pain, Post Nasal Drip, Sinus Pain, Sinus Pressure, Bleeding Gums, Change in Voice, Dental Pain, Dry Mouth, Dysphagia, Halitosis, Hoarsness, Lip Swelling, Mouth Lesions, Mouth Pain, Odynophagia, Sore Throat, Throat Swelling, Tongue Swelling, Facial Pain, Neck Pain, Neck Mass, Other - Cardiovascular Cardiovascular: absent: As Per HPI, Acrocyanosis, Chest Pain, Chest Pain at Rest , Chest Pain with Activity, Claudication, Diaphoresis, Dyspnea, Dyspnea on Exertion, Edema, Irregular Heart Rhythm, Pain Radiating to Arm/Neck/Jaw, Leg Edema, Leg Ulcers, Lightheadedness, Orthopnea, Palpitations, Paroxysmal Nocturnal Dyspnea, Pedal Edema, Radiating Pain, Rapid Heart Rate, Slow Heart Rate, Syncope, Other - Respiratory Respiratory: absent: As Per HPI, Cough, Dyspnea, Hemoptysis, Dyspnea on Exertion , Wheezing, Snoring, Stridor, Pain on Inspiration, Chest Congestion, Excessive Mucous Production, Change in Mucous Color, Pain with Coughing, Other - Gastrointestinal Gastrointestinal: As Per HPI - Genitourinary Genitourinary: As Per HPI - Musculoskeletal Musculoskeletal: absent: As Per HPI, Abnormal Gait, Arthralgias, Atrophy, Back Pain, Deformity, Joint Swelling, Limited Range of Motion, Loss of Height, Muscle Cramps, Muscle Weakness, Myalgias, Neck Pain, Numbness, Radiating Pain into Limb, Stiffness, Tingling, Other - Integumentary Integumentary: absent: As Per HPI, Acne, Alopecia, Bleeding Lesions, Change in Hair, Change in Nails, Change in Pigmentation, Changing Lesions, Dry Skin, Erythema, Furuncle, Hirsutism, Lesions, New Lesions, Non-Healing Lesions, Photosensitivity, Pruritus, Rash, Skin Pain, Skin Ulcer, Sores, Striae, Swelling , Unusual Bruising, Wounds, Jaundice, Other - Neurological Neurological: absent: As Per HPI, Abnormal Gait, Abnormal Hearing, Abnormal Movements, Abnormal Speech, Behavioral Changes, Burning Sensations, Confusion, Convulsions, Disequilibrium, Dizziness, Numbness, Focal Weakness, Frequent Falls , Headaches, Lack of Coordination, Loss of Vision, Memory Loss, Paresthesias, Radicular Pain, Restless Legs, Sensory Deficit, Syncope, Tingling, Tremor, Vertigo, Weakness, Other Visual Disturbances, Other - Psychiatric Psychiatric: absent: As Per HPI, Abnormal Sleep Pattern, Anhedonia, Anxiety, Auditory Hallucinations, Behavioral Changes, Change in Appetite, Change in Libido, Confusion, Depression, Difficulty Concentrating, Hallucinations, Homicidal Ideation, Hopelessness, Irritability, Memory Loss, Mood Swings, Panic Attacks, Paranoia, Suicidal Ideation, Visual Hallucinations, Tactile Hallucinations, Other - Endocrine Endocrine: absent: As Per HPI, Change in Body Appearance, Change in Libido, Cold Intolorance, Deepening of Voice, Excessive Sweating, Fatigue, Flushing, Heat Intolorance, Increase in Ring/Shoe/Hat Size, Palpitations, Polydipsia, Polyphagia, Polyuria, Other - Hematologic/Lymphatic Hematologic: As Per HPI Past Patient History - Infectious Disease Hx of Infectious Diseases: None - Past Medical History & Family History Past Medical History?: Yes - Past Social History Smoking Status: stopped 30 - CARDIAC Hx Cardiac Disorders: Yes (STENT) Hx Hypercholesterolemia: Yes - PULMONARY Hx Respiratory Disorders: No - NEUROLOGICAL Hx Neurological Disorder: No - HEENT Hx HEENT Problems: Yes Hx Cataracts: Yes (surgery right eye) - RENAL Hx Chronic Kidney Disease: Yes - ENDOCRINE/METABOLIC Hx Diabetes Mellitus Type 2: Yes - HEMATOLOGICAL/ONCOLOGICAL Hx Blood Disorders: No - INTEGUMENTARY Hx Dermatological Problems: No - MUSCULOSKELETAL/RHEUMATOLOGICAL Hx Arthritis: Yes (LBP, HERNIATED DISC) - GASTROINTESTINAL Hx Gall Bladder Disease: Yes - GENITOURINARY/GYNECOLOGICAL Hx Genitourinary Disorders: Yes Hx Bladder Cancer: Yes Hx Hematuria: Yes Hx Prostate Problems: Yes (enlarged prostate, partial prostatectomy) Hx Urinary Tract Infection: Yes - PSYCHIATRIC Hx Substance Use: No - SURGICAL HISTORY Hx Cholecystectomy: Yes Hx Coronary Artery Bypass Graft: Yes (x4) - ANESTHESIA Hx Anesthesia: Yes Hx Anesthesia Reactions: No Hx Malignant Hyperthermia: No Meds Allergies/Adverse Reactions: Allergies Allergy/AdvReac Type Severity Reaction Status Date / Time Penicillins Allergy RASH Verified 08/04/17 12:00 - Medications Medications: Current Medications Acetaminophen (Tylenol 325mg Tab) 650 mg PO Q6 PRN PRN Reason: Insomnia Last Admin: 08/05/17 21:28 Dose: 650 mg Aspirin (Aspirin Chewable) 81 mg PO DAILY [facility] Last Admin: 08/06/17 10:04 Dose: 81 mg Dextrose (Dextrose 50% Inj) 0 ml IV STAT PRN; Protocol PRN Reason: Hyglycemia Protocol Dextrose (Glutose 15) 0 gm PO ONCE PRN; Protocol PRN Reason: Hypoglycemia Protocol Enoxaparin Sodium (Lovenox) 30 mg SC DAILY [facility] Last Admin: 08/06/17 10:04 Dose: 30 mg Famotidine (Pepcid) 20 mg PO DAILY [facility] Last Admin: 08/06/17 10:11 Dose: 20 mg Glucagon (Glucagen Diagnostic Kit) 0 mg IM STAT PRN; Protocol PRN Reason: Hypoglycemia Protocol Hydromorphone HCl (Dilaudid) 1 mg IVP Q4H PRN PRN Reason: Pain, moderate (4-7) Last Admin: 08/06/17 14:56 Dose: 1 mg Dextrose (Dextrose 5% In Water 1000 Ml) 1,000 mls @ 0 mls/hr IV .Q0M PRN; Protocol; Per Protocol PRN Reason: Hypoglycemia Protocol Aztreonam 1 gm/ Sodium (Chloride) 100 mls @ 200 mls/hr IVPB Q8H [facility] Last Admin: 08/06/17 17:35 Dose: 200 mls/hr Insulin Human Regular (Novolin R) 0 unit SC ACHS [facility] PRN Reason: Protocol Last Admin: 08/06/17 13:39 Dose: Not Given Rosuvastatin Calcium (Crestor) 5 mg PO HS [facility] Last Admin: 08/05/17 21:28 Dose: 5 mg Tamsulosin HCl (Flomax) 0.4 mg PO DAILY [facility] Last Admin: 08/06/17 10:04 Dose: 0.4 mg Temazepam (Restoril) 30 mg PO HS PRN PRN Reason: Insomnia Last Admin: 08/05/17 21:28 Dose: 30 mg Physical Exam - Constitutional Appears: Non-toxic, Cachectic, Chronically Ill - Head Exam Head Exam: NORMOCEPHALIC - Eye Exam Eye Exam: PERRL. absent: Scleral icterus - ENT Exam ENT Exam: Mucous Membranes Dry, Normal External Ear Exam - Neck Exam Neck exam: Negative for: Lymphadenopathy - Respiratory Exam Respiratory Exam: Decreased Breath Sounds, Rhonchi - Cardiovascular Exam Cardiovascular Exam: REGULAR RHYTHM, +S1, +S2 - GI/Abdominal Exam GI & Abdominal Exam: Diminished Bowel Sounds, Distended, Guarding, Soft, Tenderness. absent: Rebound, Rigid - Rectal Exam Rectal Exam: Deferred - Exam Exam: NORMAL INSPECTION - Extremities Exam Extremities exam: Positive for: pedal pulses present. Negative for: calf tenderness, pedal edema, tenderness - Back Exam Back exam: absent: CVA tenderness (L), CVA tenderness (R) - Neurological Exam Neurological exam: Alert, CN II-XII Intact, Oriented x3, Reflexes Normal - Psychiatric Exam Psychiatric exam: Depressed Results - Vital Signs Recent Vital Signs: Last Vital Signs Temp 97.8 F 08/06/17 16:00 Pulse 76 08/06/17 16:00 Resp 20 08/06/17 16:00 BP 146/79 08/06/17 16:00 Pulse Ox 95 08/06/17 16:00 - Labs Result Diagrams: 08/06/17 07:03 08/06/17 07:03 Labs: Laboratory Results - last 24 hr 08/05/17 08/06/17 08/06/17 21:28 07:03 07:03 WBC 6.2 RBC 4.54 Hgb 13.0 Hct 39.2 MCV 86.5 MCH 28.6 MCHC 33.1 RDW 14.4 Plt Count 273 MPV 7.8 Neut % (Auto) 64.3 Lymph % (Auto) 24.7 Woodson % (Auto) 8.2 Eos % (Auto) 2.3 Baso % (Auto) 0.5 Neut # 4.0 Lymph # 1.5 Woodson # 0.5 Eos # 0.1 Baso # 0.0 Sodium 137 Potassium 4.4 Chloride 100 Carbon Dioxide 23 Anion Gap 19 BUN 35 H Creatinine 2.0 H Est GFR ( Amer) 38 Est GFR (Non-Af Amer) 32 POC Glucose (mg/dL) 132 H Random Glucose 129 H Hemoglobin A1c Calcium 9.1 Phosphorus 3.5 Magnesium 2.2 Total Bilirubin 0.7 AST 22 ALT 22 Alkaline Phosphatase 80 Total Protein 8.2 Albumin 4.3 Globulin 4.0 H Albumin/Globulin Ratio 1.1 TSH 3rd Generation 1.62 08/06/17 08/06/17 08/06/17 07:03 07:49 11:07 WBC RBC Hgb Hct MCV MCH MCHC RDW Plt Count MPV Neut % (Auto) Lymph % (Auto) Woodson % (Auto) Eos % (Auto) Baso % (Auto) Neut # Lymph # Woodson # Eos # Baso # Sodium Potassium Chloride Carbon Dioxide Anion Gap BUN Creatinine Est GFR ( Amer) Est GFR (Non-Af Amer) POC Glucose (mg/dL) 124 H 119 H Random Glucose Hemoglobin A1c 7.9 H Calcium Phosphorus Magnesium Total Bilirubin AST ALT Alkaline Phosphatase Total Protein Albumin Globulin Albumin/Globulin Ratio TSH 3rd Generation 08/06/17 16:00 WBC RBC Hgb Hct MCV MCH MCHC RDW Plt Count MPV Neut % (Auto) Lymph % (Auto) Woodson % (Auto) Eos % (Auto) Baso % (Auto) Neut # Lymph # Woodson # Eos # Baso # Sodium Potassium Chloride Carbon Dioxide Anion Gap BUN Creatinine Est GFR ( Amer) Est GFR (Non-Af Amer) POC Glucose (mg/dL) 139 H Random Glucose Hemoglobin A1c Calcium Phosphorus Magnesium Total Bilirubin AST ALT Alkaline Phosphatase Total Protein Albumin Globulin Albumin/Globulin Ratio [facility] 3rd Generation Assessment & Plan (1) Urothelial carcinoma of bladder Status: Acute (2) Urothelial carcinoma of bladder Status: Acute (3) History of nephrectomy Status: Acute (4) History of nephrectomy Status: Acute (5) Back pain Status: Acute (6) BPH (benign prostatic hyperplasia) Status: Acute (7) BPH (benign prostatic hypertrophy) with urinary obstruction Status: Acute (8) HTN (hypertension) Status: Acute (9) Hydronephrosis Status: Acute (10) Intractable abdominal pain Status: Acute (11) Lesion of ureter Status: Acute - Assessment and Plan (Free Text) Assessment: cont iv antibiotics await cultures prognosis guarded
[2017-08-06] MEDS: Vancomycin 1 gm/NS 200 ml 1 GM/200 ML BAG IVPB SCH (19:21)
--- NOTE | 2017-08-06 22:51 | CARD ---
APPROVED REPORT EKG Measurement Heart [id number] MD [id number] <Conclusion> Normal sinus rhythm Increased R/S ratio in V1, consider early transition or posterior infarct Abnormal ECG
[2017-08-07] MEDS: Aztreonam 1 GM in Sodium Chloride 0.9% 100 ML IVPB SCH ×3 (02:02→17:45)
[2017-08-07] MEDS: HYDROmorphone 0.5 mg/0.5 ml ISec IVP PRN ×4 (03:28→17:47)
[2017-08-07 07:58] LABS: BASO % 0.7 % (0.0-2.0); EOS # 0.2 K/uL (0.0-0.7); EOS % 3.7 % (0.0-4.0); HEMATOCRIT 38.6 % (35.0-51.0); LYMPH # 1.2 K/uL (1.0-4.3); LYMPH % 19.9 % (20.0-40.0); MEAN CELL VOLUME 86.8 fL (80.0-94.0); MEAN CORPUSCULAR HGB CONC 33.4 g/dL (33.0-37.0); MEAN PLATELET VOLUME 7.8 fL (7.2-11.7); MONO # 0.5 K/uL (0.0-0.8); MONO % 8.6 % (0.0-10.0); RED CELL DISTRIBUTION WIDTH 14.3 % (11.5-14.5); WHITE BLOOD COUNT 6.1 K/uL (4.8-10.8)
[2017-08-07] MEDS: (Novolin R) Insulin Human Regular 100 units/ml vial SC SCH ×5 (08:02→21:50)
[2017-08-07 08:18] LABS: BILIRUBIN,TOTAL 0.8 mg/dL (0.2-1.3)
[2017-08-07 08:19] LABS: ALB/GLOB RATIO 1.1 (1.0-2.1); CALCIUM 9.2 mg/dl (8.6-10.4); TOTAL PROTEIN 8.2 g/dL (6.3-8.3)
[2017-08-07 08:20] LABS: MAGNESIUM 2.1 mg/dL (1.6-2.3)
[2017-08-07] MEDS ORDERED: Propofol 10 mg/ml Inj (20 ML) ONE (11:37)
--- NOTE | 2017-08-07 12:06 | PCM.SURG1 ---
Surgeon's Initial Post Op Note - Surgeon's Notes Surgeon: Hilario Grider MD Welt Edge Rounder: NONE Type of Anesthesia: IV Sedation Pre-Operative Diagnosis: Retroperitoneal lymphadenopathy Operative Findings: CT showed enlarged left paraaortic lymph node. Post-Operative Diagnosis: Retroperitoneal lymphadenopathy Operation Performed: CT guided core biopsy of enlarged retroperitoneal node. Specimen/Specimens Removed: 18 gauge core x 3 Estimated Blood Loss: EBL {In ML}: 1 Blood Products Given: N/A Drains Used: No Drains Post-Op Condition: Fair Date of Surgery/Procedure: 08/07/17 Time of Surgery/Procedure: 12:00
--- NOTE | 2017-08-07 15:13 | CP.PCM.PN ---
<Mushtaq Manrique - Last Filed: 08/07/17 18:50> Subjective - Date & Time of Evaluation Date of Evaluation: 08/07/17 Time of Evaluation: 09:10 - Subjective Subjective: Medicine Progress Note for Dr. Lopes Patient seen and examined at bedside. Patient reports no acute complaints but is feeling a bit annoyed by his current NPO status for his biopsy later this AM. Patient denies fever, chills, chest pain, dyspnea, abdominal pain, dysuria. Objective - Vital Signs/Intake and Output Vital Signs (last 24 hours): Temp Pulse Resp BP Pulse Ox 98.0 F 66 20 124/63 95 08/07/17 08:10 08/07/17 08:10 08/07/17 08:10 08/07/17 08:10 08/07/17 08:10 Intake and Output: 08/07/17 08/07/17 06:59 18:59 Intake Total 100 Output Total 600 Balance -500 - Medications Medications: Current Medications Acetaminophen (Tylenol 325mg Tab) 650 mg PO Q6 PRN PRN Reason: Insomnia Last Admin: 08/06/17 21:12 Dose: 650 mg Aspirin (Aspirin Chewable) 81 mg PO DAILY [facility] Last Admin: 08/07/17 10:28 Dose: Not Given Dextrose (Dextrose 50% Inj) 0 ml IV STAT PRN; Protocol PRN Reason: Hyglycemia Protocol Dextrose (Glutose 15) 0 gm PO ONCE PRN; Protocol PRN Reason: Hypoglycemia Protocol Enoxaparin Sodium (Lovenox) 30 mg SC DAILY [facility] Last Admin: 08/06/17 10:04 Dose: 30 mg Famotidine (Pepcid) 20 mg PO DAILY [facility] Last Admin: 08/07/17 10:28 Dose: Not Given Glucagon (Glucagen Diagnostic Kit) 0 mg IM STAT PRN; Protocol PRN Reason: Hypoglycemia Protocol Hydromorphone HCl (Dilaudid) 1 mg IVP Q4H PRN PRN Reason: Pain, moderate (4-7) Last Admin: 08/07/17 13:44 Dose: 1 mg Dextrose (Dextrose 5% In Water 1000 Ml) 1,000 mls @ 0 mls/hr IV .Q0M PRN; Protocol; Per Protocol PRN Reason: Hypoglycemia Protocol Aztreonam 1 gm/ Sodium (Chloride) 100 mls @ 200 mls/hr IVPB Q8H [facility] Last Admin: 08/07/17 10:28 Dose: 200 mls/hr Vancomycin/Sodium Chloride (Vancocin) 1 gm in 200 mls @ 133 mls/hr IVPB Q48H [facility] Stop: 08/11/17 19:01 Last Admin: 08/06/17 19:21 Dose: 133 mls/hr Insulin Human Regular (Novolin R) 0 unit SC ACHS [facility] PRN Reason: Protocol Last Admin: 08/07/17 11:30 Dose: Not Given Rosuvastatin Calcium (Crestor) 5 mg PO HS [facility] Last Admin: 08/06/17 21:12 Dose: 5 mg Tamsulosin HCl (Flomax) 0.4 mg PO DAILY [facility] Last Admin: 08/07/17 10:28 Dose: Not Given Temazepam (Restoril) 30 mg PO HS PRN PRN Reason: Insomnia Last Admin: 08/06/17 21:12 Dose: 30 mg - Labs Labs: 08/07/17 07:47 08/07/17 07:47 PT 12.3 SECONDS (9.7-12.2) H 08/05/17 07:16 INR 1.1 08/05/17 07:16 APTT 31 SECONDS (21-34) 08/05/17 07:16 - Constitutional Appears: No Acute Distress, Cachectic, Chronically Ill - Head Exam Head Exam: ATRAUMATIC, NORMOCEPHALIC - Eye Exam Eye Exam: EOMI, PERRL - ENT Exam ENT Exam: Mucous Membranes Dry - Respiratory Exam Respiratory Exam: Clear to Ausculation Bilateral, NORMAL BREATHING PATTERN. absent: Rales, Rhonchi, Wheezes - Cardiovascular Exam Cardiovascular Exam: REGULAR RHYTHM, +S1, +S2 - GI/Abdominal Exam GI & Abdominal Exam: Soft, Normal Bowel Sounds. absent: Tenderness - Extremities Exam Extremities Exam: absent: Calf Tenderness, Pedal Edema - Neurological Exam Neurological Exam: Alert, Awake, Oriented x3 - Psychiatric Exam Psychiatric exam: Depressed - Skin Skin Exam: Dry, Intact, Normal Color, Warm Assessment and Plan - Assessment and Plan (Free Text) Plan: Diabetes * Hga1c 7.5 (06/2017) * Accuchecks * Endocrinology consulted- Dr. Samano - help appreciated * Patient has poor appetite will monitor for hypoglycemia * Ensures added as supplements * Dancer Or Choreographer referral due to poor appetite and newly diagnosed diabetic * ISS-low Hx of Bladder Cancer S/P Left Nephrectomy 12/2016 Lymphadenopathy * Patient had imaging/scan with their hem/onc doctor, Dr. Fermin, for suprapubic pain and lymphadenopathy. Patient does not have results from imaging study. Patient has a history of bladder cancer. * Follow recommendations as per Dr. Fermin, help appreciated. * CT Guided biopsy -on 08/07/17 * Diluadid 1mg PRN pain Urinary Tract Infection Colonized? * ID consulted - Dr. Salas- help appreciated * UA: + LE * Urine culture grew E. Faecalis * Aztreonam 2gm Q8H 11/28 PCN allergy - (past urine cultures were resistant to Cipro) * F/u repeat urine culture ordered on 08/07/17 BPH (benign prostatic hyperplasia) * Continue home medication- Flomax 0.4mg PO daily. Hypercholesterolemia * Continue Crestor 5mg PO HS Insomnia * Continue Temazepam 30mg PO HS prn Prophylactic measure * GI PPX: Pepcid 20mg PO daily * DVT PPX: SCDs, will restart lovenox after biopsy * Heart Healthy Diet with moderate carbohydrates * Glucerna added as supplements * Dancer Or Choreographer referral * PT/OT- patient refuses [facility]RIA, but needs PT in house, will see if he qualifies for home PT Medicine Team consulted, we will follow this patient closely. Case DW Dr. Moses Manirque PGY-1 <Madeline Gerber - Last Filed: 08/08/17 16:02> Objective - Vital Signs/Intake and Output Vital Signs (last 24 hours): Temp Pulse Resp BP Pulse Ox 98.3 F 87 20 145/81 95 08/08/17 10:23 08/08/17 10:23 08/08/17 10:23 08/08/17 10:23 08/08/17 10:23 Intake and Output: 08/08/17 08/08/17 06:59 18:59 Intake Total 520 350 Balance 520 350 - Medications Medications: Current Medications Acetaminophen (Tylenol 325mg Tab) 650 mg PO Q6 PRN PRN Reason: Insomnia Last Admin: 08/08/17 06:25 Dose: 650 mg Aspirin (Aspirin Chewable) 81 mg PO DAILY [facility] Last Admin: 08/08/17 09:18 Dose: 81 mg Dextrose (Dextrose 50% Inj) 0 ml IV STAT PRN; Protocol PRN Reason: Hyglycemia Protocol Dextrose (Glutose 15) 0 gm PO ONCE PRN; Protocol PRN Reason: Hypoglycemia Protocol Enoxaparin Sodium (Lovenox) 30 mg SC DAILY [facility] Last Admin: 08/08/17 11:06 Dose: Not Given Famotidine (Pepcid) 20 mg PO DAILY [facility] Last Admin: 08/08/17 09:18 Dose: 20 mg Glucagon (Glucagen Diagnostic Kit) 0 mg IM STAT PRN; Protocol PRN Reason: Hypoglycemia Protocol Hydromorphone HCl (Dilaudid) 1 mg IVP Q4H PRN PRN Reason: Pain, moderate (4-7) Last Admin: 08/08/17 14:59 Dose: 1 mg Aztreonam 1 gm/ Sodium (Chloride) 100 mls @ 200 mls/hr IVPB Q8H [facility] Last Admin: 08/08/17 09:18 Dose: 200 mls/hr Vancomycin/Sodium Chloride (Vancocin) 1 gm in 200 mls @ 133 mls/hr IVPB Q48H [facility] Stop: 08/11/17 19:01 Last Admin: 08/06/17 19:21 Dose: 133 mls/hr Insulin Human Regular (Novolin R) 0 unit SC ACHS [facility]NDSAY PRN Reason: Protocol Last Admin: 08/08/17 12:22 Dose: Not Given Rosuvastatin Calcium (Crestor) 5 mg PO HS [facility] Last Admin: 08/07/17 21:37 Dose: 5 mg Tamsulosin HCl (Flomax) 0.4 mg PO DAILY [facility] Last Admin: 08/08/17 09:18 Dose: 0.4 mg Temazepam (Restoril) 30 mg PO HS PRN PRN Reason: Insomnia Last Admin: 08/07/17 21:37 Dose: 30 mg - Labs Labs: 08/08/17 07:48 08/08/17 07:48 PT 12.3 SECONDS (9.7-12.2) H 08/05/17 07:16 INR 1.1 08/05/17 07:16 APTT 31 SECONDS (21-34) 08/05/17 07:16 Attending/Attestation - Attestation I have personally seen and examined this patient.: Yes I have fully participated in the care of the patient.: Yes I have reviewed all pertinent clinical information, including history, physical exam and plan: Yes Notes (Text): 08/08/17 16:00 Patient was seen and examined with resident.Agreed with the plan and documentation. continue current meds including his antibiotics vanco and Azactam Follow ID and endocrine recommendation.
--- NOTE | 2017-08-07 20:56 | PN ---
LOCATION: Room 369. SUBJECTIVE: This is an 89-year-old male with recent uncontrolled type 2 diabetes, now being followed closely for metabolic management. His oral intake is quite variable but improved at this time, and the latest glucose fluctuations have improved accordingly. LABORATORY DATA: His latest glucose levels have ranged from 121 to 181 mg/dL. The latest chemistries showed a BUN of 38, sodium 137, potassium 5.0, chloride 99, CO2 of 26, glucose 123 and creatinine 2.0. PLAN: So at this time, we will continue only the low-dose correction scale using regular insulin as given. We will hold off the initiation of oral hypoglycemic drug therapy for now because of the variability of his oral intake. We will obtain serial chemistries and supplement accordingly as needed. We will follow. Sharon Samano MD
[2017-08-08] MEDS: Aztreonam 1 GM in Sodium Chloride 0.9% 100 ML IVPB SCH ×3 (02:15→17:17)
[2017-08-08] MEDS: HYDROmorphone 0.5 mg/0.5 ml ISec IVP PRN ×4 (03:17→19:41)
--- NOTE | 2017-08-08 07:17 | CP.PCM.PN ---
<Mushtaq Manrique - Last Filed: 08/08/17 17:46> Subjective - Date & Time of Evaluation Date of Evaluation: 08/08/17 Time of Evaluation: 07:10 - Subjective Subjective: Medicine Progress Note for Dr. Gerber Patient seen and examined at bedside. Patient states that he has better appetite today. Patient denies fever, chills, chest pain, dyspnea, abdominal pain, dysuria. Objective - Vital Signs/Intake and Output Vital Signs (last 24 hours): Temp Pulse Resp BP Pulse Ox 98.4 F 65 20 120/56 L 96 08/07/17 23:30 08/07/17 23:30 08/07/17 23:30 08/07/17 23:30 08/07/17 23:30 Intake and Output: 08/08/17 08/08/17 06:59 18:59 Intake Total 520 Balance 520 - Medications Medications: Current Medications Acetaminophen (Tylenol 325mg Tab) 650 mg PO Q6 PRN PRN Reason: Insomnia Last Admin: 08/08/17 06:25 Dose: 650 mg Aspirin (Aspirin Chewable) 81 mg PO DAILY [facility] Last Admin: 08/07/17 10:28 Dose: Not Given Dextrose (Dextrose 50% Inj) 0 ml IV STAT PRN; Protocol PRN Reason: Hyglycemia Protocol Dextrose (Glutose 15) 0 gm PO ONCE PRN; Protocol PRN Reason: Hypoglycemia Protocol Enoxaparin Sodium (Lovenox) 30 mg SC DAILY [facility] Last Admin: 08/06/17 10:04 Dose: 30 mg Famotidine (Pepcid) 20 mg PO DAILY [facility] Last Admin: 08/07/17 10:28 Dose: Not Given Glucagon (Glucagen Diagnostic Kit) 0 mg IM STAT PRN; Protocol PRN Reason: Hypoglycemia Protocol Hydromorphone HCl (Dilaudid) 1 mg IVP Q4H PRN PRN Reason: Pain, moderate (4-7) Last Admin: 08/08/17 03:17 Dose: 1 mg Dextrose (Dextrose 5% In Water 1000 Ml) 1,000 mls @ 0 mls/hr IV .Q0M PRN; Protocol; Per Protocol PRN Reason: Hypoglycemia Protocol Aztreonam 1 gm/ Sodium (Chloride) 100 mls @ 200 mls/hr IVPB Q8H [facility] Last Admin: 10/13/17 02:15 Dose: 200 mls/hr Vancomycin/Sodium Chloride (Vancocin) 1 gm in 200 mls @ 133 mls/hr IVPB Q48H [facility] Stop: 08/11/17 19:01 Last Admin: 08/06/17 19:21 Dose: 133 mls/hr Insulin Human Regular (Novolin R) 0 unit SC ACHS [facility] PRN Reason: Protocol Last Admin: 08/07/17 21:50 Dose: Not Given Rosuvastatin Calcium (Crestor) 5 mg PO HS [facility] Last Admin: 08/07/17 21:37 Dose: 5 mg Tamsulosin HCl (Flomax) 0.4 mg PO DAILY [facility] Last Admin: 08/07/17 10:28 Dose: Not Given Temazepam (Restoril) 30 mg PO HS PRN PRN Reason: Insomnia Last Admin: 08/07/17 21:37 Dose: 30 mg - Labs Labs: 08/07/17 07:47 08/07/17 07:47 PT 12.3 SECONDS (9.7-12.2) H 08/05/17 07:16 INR 1.1 08/05/17 07:16 APTT 31 SECONDS (21-34) 08/05/17 07:16 - Constitutional Appears: No Acute Distress, Cachectic, Chronically Ill - Head Exam Head Exam: ATRAUMATIC, NORMOCEPHALIC - Eye Exam Eye Exam: EOMI, PERRL - ENT Exam ENT Exam: Mucous Membranes Dry - Respiratory Exam Respiratory Exam: Clear to Ausculation Bilateral, NORMAL BREATHING PATTERN. absent: Rales, Rhonchi, Wheezes - Cardiovascular Exam Cardiovascular Exam: REGULAR RHYTHM, +S1, +S2 - GI/Abdominal Exam GI & Abdominal Exam: Soft, Normal Bowel Sounds. absent: Tenderness - Extremities Exam Extremities Exam: absent: Calf Tenderness, Pedal Edema - Neurological Exam Neurological Exam: Alert, Awake, Oriented x3 - Psychiatric Exam Psychiatric exam: Depressed - Skin Skin Exam: Dry, Intact, Normal Color, Warm Assessment and Plan - Assessment and Plan (Free Text) Plan: Diabetes * Hga1c 7.5 (06/2017) * Accuchecks * Endocrinology consulted- Dr. Samano - help appreciated * Patient has poor appetite will monitor for hypoglycemia * Ensures added as supplements * Archives Specialist referral due to poor appetite and newly diagnosed diabetic * ISS-low Hx of Bladder Cancer S/P Left Nephrectomy 12/2016 Lymphadenopathy * Patient had imaging/scan with their hem/onc doctor, Dr. Fermin, for suprapubic pain and lymphadenopathy. Patient does not have results from imaging study. Patient has a history of bladder cancer. * Follow recommendations as per Dr. Fermin, help appreciated. * CT Guided biopsy -on 08/07/17 * Diluadid 1mg PRN pain Urinary Tract Infection Colonized? * ID consulted - Dr. Salas- help appreciated * UA: + LE * Urine culture grew E. Faecalis * Aztreonam 2gm Q8H 2/ PCN allergy - (past urine cultures were resistant to Cipro) * F/u repeat urine culture ordered on 08/07/17. Awaiting results. BPH (benign prostatic hyperplasia) * Continue home medication- Flomax 0.4mg PO daily. Hypercholesterolemia * Continue Crestor 5mg PO HS Insomnia * Continue Temazepam 30mg PO HS prn Prophylactic measure * GI PPX: Pepcid 20mg PO daily * DVT PPX: SCDs, will restart lovenox after biopsy * Heart Healthy Diet with moderate carbohydrates * Glucerna added as supplements * Archives Specialist referral * PT/OT- patient refuses [facility], but needs PT in house, will see if he qualifies for home PT Medicine Team consulted, we will follow this patient closely. Case DW Dr. Moses Manrique PGY-1 <Madeline Gerber - Last Filed: 08/08/17 20:26> Objective - Vital Signs/Intake and Output Vital Signs (last 24 hours): Temp Pulse Resp BP Pulse Ox 98.4 F 66 20 137/77 95 08/08/17 16:00 08/08/17 16:00 08/08/17 16:00 08/08/17 16:00 08/08/17 16:00 Intake and Output: 08/08/17 08/09/17 18:59 06:59 Intake Total 350 Balance 350 - Medications Medications: Current Medications Acetaminophen (Tylenol 325mg Tab) 650 mg PO Q6 PRN PRN Reason: Insomnia Last Admin: 08/08/17 06:25 Dose: 650 mg Aspirin (Aspirin Chewable) 81 mg PO DAILY [facility] Last Admin: 08/08/17 09:18 Dose: 81 mg Dexamethasone (Decadron Inj) 4 mg IV DAILY [facility] Dextrose (Dextrose 50% Inj) 0 ml IV STAT PRN; Protocol PRN Reason: Hyglycemia Protocol Dextrose (Glutose 15) 0 gm PO ONCE PRN; Protocol PRN Reason: Hypoglycemia Protocol Enoxaparin Sodium (Lovenox) 30 mg SC DAILY [facility] Last Admin: 08/08/17 11:06 Dose: Not Given Famotidine (Pepcid) 20 mg PO DAILY [facility] Last Admin: 08/08/17 09:18 Dose: 20 mg Glucagon (Glucagen Diagnostic Kit) 0 mg IM STAT PRN; Protocol PRN Reason: Hypoglycemia Protocol Hydromorphone HCl (Dilaudid) 1 mg IVP Q4H PRN PRN Reason: Pain, moderate (4-7) Last Admin: 08/08/17 19:41 Dose: 1 mg Aztreonam 1 gm/ Sodium (Chloride) 100 mls @ 200 mls/hr IVPB Q8H [facility] Last Admin: 08/08/17 17:17 Dose: 200 mls/hr Vancomycin/Sodium Chloride (Vancocin) 1 gm in 200 mls @ 133 mls/hr IVPB Q48H [facility] Stop: 08/11/17 19:01 Last Admin: 08/08/17 19:35 Dose: 133 mls/hr Insulin Human Regular (Novolin R) 0 unit SC ACHS [facility] PRN Reason: Protocol Last Admin: 08/08/17 16:35 Dose: Not Given Rosuvastatin Calcium (Crestor) 5 mg PO HS [facility] Last Admin: 08/07/17 21:37 Dose: 5 mg Senna/Docusate Sodium (Senokot S 50 Mg-8.6 Mg) 2 tab PO HS [facility] Tamsulosin HCl (Flomax) 0.4 mg PO DAILY [facility] Last Admin: 08/08/17 09:18 Dose: 0.4 mg Temazepam (Restoril) 30 mg PO HS PRN PRN Reason: Insomnia Last Admin: 08/07/17 21:37 Dose: 30 mg - Labs Labs: 08/08/17 07:48 08/08/17 07:48 PT 12.3 SECONDS (9.7-12.2) H 08/05/17 07:16 INR 1.1 08/05/17 07:16 APTT 31 SECONDS (21-34) 08/05/17 07:16 Attending/Attestation - Attestation I have personally seen and examined this patient.: Yes I have fully participated in the care of the patient.: Yes I have reviewed all pertinent clinical information, including history, physical exam and plan: Yes Notes (Text): New onset DM * Hga1c 7.5 (06/2017) * Accuchecks * Endocrinology consulted- Dr. Samano - help appreciated * Patient has poor appetite will monitor for hypoglycemia * Ensures added as supplements * Archives Specialist referral due to poor appetite and newly diagnosed diabetic * ISS-low Bladder cancer and L nephrectomy * Patient had imaging/scan with their hem/onc doctor, Dr. Fermin, for suprapubic pain and lymphadenopathy. Patient does not have results from imaging study. Patient has a history of bladder cancer. * Follow recommendations as per Dr. Fermin, help appreciated. * CT Guided biopsy -on 08/07/17 * Diluadid 1mg PRN pain Urinary tract infection * ID consulted - Dr. Salas- help appreciated * UA: + LE * Urine culture grew E. Faecalis * Aztreonam 2gm Q8H / PCN allergy - (past urine cultures were resistant to Cipro) * F/u repeat urine culture ordered on 08/07/17. Awaiting results. BPH -Continue home medication- Flomax 0.4mg PO daily. * Continue Crestor 5mg PO HS Insomnia-Continue Temazepam 30mg PO HS prn Prophylactic GI PPX: Pepcid 20mg PO daily * DVT PPX: SCDs, will restart lovenox after biopsy * Heart Healthy Diet with moderate carbohydrates * Glucerna added as supplements * Archives Specialist referral * PT/OT- patient refuses [facility], but needs PT in house, will see if he qualifies for home PT
[2017-08-08] MEDS: (Novolin R) Insulin Human Regular 100 units/ml vial SC SCH ×4 (07:55→21:19)
[2017-08-08 08:04] LABS: BASO % 0.6 % (0.0-2.0); EOS # 0.2 K/uL (0.0-0.7); EOS % 3.2 % (0.0-4.0); LYMPH # 1.5 K/uL (1.0-4.3); MEAN CELL VOLUME 86.8 fL (80.0-94.0); MEAN CORPUSCULAR HEMOGLOBIN 28.9 pg (27.0-31.0); MEAN CORPUSCULAR HGB CONC 33.3 g/dL (33.0-37.0); MONO # 0.6 K/uL (0.0-0.8); MONO % 8.3 % (0.0-10.0); RED CELL DISTRIBUTION WIDTH 14.3 % (11.5-14.5); WHITE BLOOD COUNT 7.1 K/uL (4.8-10.8)
[2017-08-08 08:31] LABS: POTASSIUM 4.7 mmol/L (3.6-5.2)
[2017-08-08 08:32] LABS: BILIRUBIN,TOTAL 0.8 mg/dL (0.2-1.3)
[2017-08-08 08:33] LABS: ALB/GLOB RATIO 1.1 (1.0-2.1); CALCIUM 9.1 mg/dl (8.6-10.4); PHOSPHOROUS 3.1 mg/dL (2.5-4.5); TOTAL PROTEIN 7.7 g/dL (6.3-8.3)
[2017-08-08] MEDS: Enoxaparin 30 mg Syringe SC SCH (11:06)
--- NOTE | 2017-08-08 14:48 | CT ---
PROCEDURE: < Date of procedure: 08/07/2017 Procedure: 1. CT-guided biopsy of retroperitoneal lymph node, CPT [address] guidance for procedure, [address] Medications: The patient sedated by the anesthesiologist with IV sedation, 1 percent lidocaine HISTORY: Patient with enlarged left para-aortic lymph node TECHNIQUE: Following informed consent and procedure time-out, the patient was placed prone on the CT table and noncontrast CT scan was performed. The non contrast CT scan confirmed the presence of a 1.5 centimeter left para-aortic lymph node. A skin localizer was placed on patient's back and repeat CT scan performed. Her back was marked, prepped, and draped in the usual sterile fashion. After the patient was sedated by the anesthesiologist and the skin anesthetized with 1% lidocaine, an 18 gauge core biopsy needle was advanced percutaneously under CT guidance towards lymph node. Once the needle was confirmed to be within the lymph node, multiple core biopsy specimens were obtained and sent for routine pathology. The specimen was also sent for flow cytometry. A post biopsy CT scan showed no hematoma. IMPRESSION: CT-guided biopsy core biopsy of left para-aortic lymph node.
--- NOTE | 2017-08-08 15:27 | PN ---
ENDO FOLLOWUP NOTE LOCATION: In the room 369. SUBJECTIVE: This is an 89-year-old male with recent admission for acute bronchitis and pneumonitis and is now being followed closely for metabolic management. His glycemic levels are fluctuating but much improved at this time and the latest glucose levels have ranged from 108 to 128 and 134 mg/dL. His latest chemistries showed a BUN of 36, sodium 136, potassium 4.7, chloride 100, CO2 of 24, glucose 134 and creatinine 1.9. So at this time, he has no basal insulin requirements nor need for any kind of oral hypoglycemic drug therapy at this time. We will also continue the very low dose correction scale using regular insulin as ordered. Because of the variability of his oral intake, we will hold off the initiation of any kind of low-dose oral hypoglycemic drug therapy for now. We will obtain serum chemistries and supplement accordingly as needed. We will follow with you. Sharon Samano MD
--- NOTE | 2017-08-08 17:50 | CP.PCM.PN ---
Subjective - Date & Time of Evaluation Date of Evaluation: 08/08/17 Time of Evaluation: 17:46 - Subjective Subjective: The patient says the pain is better, still needs pain meds every 4-6 hours or so , c/o constipation, no nausea, appetite poor. Objective - Vital Signs/Intake and Output Vital Signs (last 24 hours): Temp Pulse Resp BP Pulse Ox 98.4 F 66 20 137/77 95 08/08/17 16:00 08/08/17 16:00 08/08/17 16:00 08/08/17 16:00 08/08/17 16:00 Intake and Output: 08/08/17 08/08/17 06:59 18:59 Intake Total 520 350 Balance 520 350 - Medications Medications: Current Medications Acetaminophen (Tylenol 325mg Tab) 650 mg PO Q6 PRN PRN Reason: Insomnia Last Admin: 08/08/17 06:25 Dose: 650 mg Aspirin (Aspirin Chewable) 81 mg PO DAILY [facility] Last Admin: 08/08/17 09:18 Dose: 81 mg Dexamethasone (Decadron Inj) 4 mg IV DAILY [facility] Dextrose (Dextrose 50% Inj) 0 ml IV STAT PRN; Protocol PRN Reason: Hyglycemia Protocol Dextrose (Glutose 15) 0 gm PO ONCE PRN; Protocol PRN Reason: Hypoglycemia Protocol Enoxaparin Sodium (Lovenox) 30 mg SC DAILY [facility] Last Admin: 08/08/17 11:06 Dose: Not Given Famotidine (Pepcid) 20 mg PO DAILY [facility] Last Admin: 08/08/17 09:18 Dose: 20 mg Glucagon (Glucagen Diagnostic Kit) 0 mg IM STAT PRN; Protocol PRN Reason: Hypoglycemia Protocol Hydromorphone HCl (Dilaudid) 1 mg IVP Q4H PRN PRN Reason: Pain, moderate (4-7) Last Admin: 08/08/17 14:59 Dose: 1 mg Aztreonam 1 gm/ Sodium (Chloride) 100 mls @ 200 mls/hr IVPB Q8H [facility] Last Admin: 08/08/17 17:17 Dose: 200 mls/hr Vancomycin/Sodium Chloride (Vancocin) 1 gm in 200 mls @ 133 mls/hr IVPB Q48H [facility] Stop: 08/11/17 19:01 Last Admin: 08/06/17 19:21 Dose: 133 mls/hr Insulin Human Regular (Novolin R) 0 unit SC ACHS [facility] PRN Reason: Protocol Last Admin: 08/08/17 12:22 Dose: Not Given Rosuvastatin Calcium (Crestor) 5 mg PO HS [facility] Last Admin: 08/07/17 21:37 Dose: 5 mg Senna/Docusate Sodium (Senokot S 50 Mg-8.6 Mg) 2 tab PO HS [facility] Tamsulosin HCl (Flomax) 0.4 mg PO DAILY [facility] Last Admin: 08/08/17 09:18 Dose: 0.4 mg Temazepam (Restoril) 30 mg PO HS PRN PRN Reason: Insomnia Last Admin: 08/07/17 21:37 Dose: 30 mg - Labs Labs: 08/08/17 07:48 08/08/17 07:48 PT 12.3 SECONDS (9.7-12.2) H 08/05/17 07:16 INR 1.1 08/05/17 07:16 APTT 31 SECONDS (21-34) 08/05/17 07:16 Assessment and Plan (1) Hx of bladder cancer Assessment & Plan: Patient is s/p biopsy of retroperitoneal lymph nodes, preliminary report c/w malignancy as per pathologist, special stains still pending. Have discussed the possibility of a malignancy with the patient. Will start decadron to help with inflammation surrounding the lymph nodes. Will discuss final path with patient on Friday Status: Acute
[2017-08-08] MEDS ORDERED: Aztreonam 2 GM in Sodium Chloride 0.9% 100 ML IVPB SCH (19:30)
[2017-08-08] MEDS: Vancomycin 1 gm/NS 200 ml 1 GM/200 ML BAG IVPB SCH (19:35)
[2017-08-08] MEDS: Docusate-Senna 50 mg-8.6 mg Tab PO SCH (21:52)
[2017-08-09] MEDS: HYDROmorphone 0.5 mg/0.5 ml ISec IVP PRN ×5 (01:08→19:59)
[2017-08-09] MEDS: Aztreonam 1 GM in Sodium Chloride 0.9% 100 ML IVPB SCH ×3 (01:12→17:25)
--- NOTE | 2017-08-09 07:39 | CP.PCM.PN ---
<Mushtaq Manrique - Last Filed: 08/09/17 13:25> Subjective - Date & Time of Evaluation Date of Evaluation: 08/09/17 Time of Evaluation: 09:00 - Subjective Subjective: Medicine Progress Note for Dr. Gerber Patient seen and examined at bedside. Patient states that he feels fine today. Appetite remains the same. Patient denies fever, chills, chest pain, dyspnea, abdominal pain, dysuria. Objective - Vital Signs/Intake and Output Vital Signs (last 24 hours): Temp Pulse Resp BP Pulse Ox 98.2 F 71 18 109/65 97 08/09/17 00:00 08/09/17 00:00 08/09/17 00:00 08/09/17 00:00 08/09/17 00:00 Intake and Output: 08/09/17 08/09/17 06:59 18:59 Intake Total 200 Balance 200 - Medications Medications: Current Medications Acetaminophen (Tylenol 325mg Tab) 650 mg PO Q6 PRN PRN Reason: Insomnia Last Admin: 08/08/17 21:18 Dose: 650 mg Aspirin (Aspirin Chewable) 81 mg PO DAILY [facility] Last Admin: 08/08/17 09:18 Dose: 81 mg Dexamethasone (Decadron Inj) 4 mg IV DAILY [facility] Dextrose (Dextrose 50% Inj) 0 ml IV STAT PRN; Protocol PRN Reason: Hyglycemia Protocol Dextrose (Glutose 15) 0 gm PO ONCE PRN; Protocol PRN Reason: Hypoglycemia Protocol Enoxaparin Sodium (Lovenox) 30 mg SC DAILY [facility] Last Admin: 08/08/17 11:06 Dose: Not Given Famotidine (Pepcid) 20 mg PO DAILY [facility] Last Admin: 08/08/17 09:18 Dose: 20 mg Glucagon (Glucagen Diagnostic Kit) 0 mg IM STAT PRN; Protocol PRN Reason: Hypoglycemia Protocol Hydromorphone HCl (Dilaudid) 1 mg IVP Q4H PRN PRN Reason: Pain, moderate (4-7) Last Admin: 08/09/17 07:10 Dose: 1 mg Aztreonam 1 gm/ Sodium (Chloride) 100 mls @ 200 mls/hr IVPB Q8H [facility] Last Admin: 08/09/17 01:12 Dose: 200 mls/hr Vancomycin/Sodium Chloride (Vancocin) 1 gm in 200 mls @ 133 mls/hr IVPB Q48H [facility] Stop: 08/11/17 19:01 Last Admin: 08/08/17 19:35 Dose: 133 mls/hr Insulin Human Regular (Novolin R) 0 unit SC ACHS [facility] PRN Reason: Protocol Last Admin: 08/08/17 21:19 Dose: Not Given Rosuvastatin Calcium (Crestor) 5 mg PO HS [facility] Last Admin: 08/08/17 21:18 Dose: 5 mg Senna/Docusate Sodium (Senokot S 50 Mg-8.6 Mg) 2 tab PO HS [facility] Last Admin: 08/08/17 21:52 Dose: 2 tab Tamsulosin HCl (Flomax) 0.4 mg PO DAILY [facility] Last Admin: 08/08/17 09:18 Dose: 0.4 mg Temazepam (Restoril) 30 mg PO HS PRN PRN Reason: Insomnia Last Admin: 08/08/17 21:18 Dose: 30 mg - Labs Labs: 08/08/17 07:48 08/08/17 07:48 PT 12.3 SECONDS (9.7-12.2) H 08/05/17 07:16 INR 1.1 08/05/17 07:16 APTT 31 SECONDS (21-34) 08/05/17 07:16 - Constitutional Appears: No Acute Distress, Cachectic, Chronically Ill - Head Exam Head Exam: ATRAUMATIC, NORMOCEPHALIC - Eye Exam Eye Exam: EOMI, PERRL - ENT Exam ENT Exam: Mucous Membranes Dry - Respiratory Exam Respiratory Exam: Clear to Ausculation Bilateral, NORMAL BREATHING PATTERN. absent: Rales, Rhonchi, Wheezes - Cardiovascular Exam Cardiovascular Exam: REGULAR RHYTHM, +S1, +S2 - GI/Abdominal Exam GI & Abdominal Exam: Soft, Normal Bowel Sounds. absent: Tenderness - Extremities Exam Extremities Exam: absent: Calf Tenderness, Pedal Edema - Neurological Exam Neurological Exam: Alert, Awake, Oriented x3 - Psychiatric Exam Psychiatric exam: Depressed - Skin Skin Exam: Dry, Intact, Normal Color, Warm Assessment and Plan - Assessment and Plan (Free Text) Plan: Diabetes * Hga1c 7.5 (06/2017) * Accuchecks * Endocrinology consulted- Dr. Samano - help appreciated * Patient has poor appetite will monitor for hypoglycemia * Ensures added as supplements * Hide Sorter referral due to poor appetite and newly diagnosed diabetic * ISS-low Hx of Bladder Cancer S/P Left Nephrectomy 12/2016 Lymphadenopathy * Patient had imaging/scan with their hem/onc doctor, Dr. Fermin, for suprapubic pain and lymphadenopathy. Patient does not have results from imaging study. Patient has a history of bladder cancer. * Follow recommendations as per Dr. Fermin, help appreciated. * CT Guided biopsy -on 08/07/17 * Diluadid 1mg PRN pain Urinary Tract Infection Colonized? * ID consulted - Dr. Salas- help appreciated * UA: + LE * Urine culture grew E. Faecalis * Aztreonam 2gm Q8H 11/28 PCN allergy - (past urine cultures were resistant to Cipro) * F/u repeat urine culture ordered on 08/07/17. It grew gram positive cocci. Awaiting further results including sensitivity. BPH (benign prostatic hyperplasia) * Continue home medication- Flomax 0.4mg PO daily. Hypercholesterolemia * Continue Crestor 5mg PO HS Insomnia * Continue Temazepam 30mg PO HS prn Prophylactic measure * GI PPX: Pepcid 20mg PO daily * DVT PPX: SCDs, will restart lovenox after biopsy * Heart Healthy Diet with moderate carbohydrates * Glucerna added as supplements * Hide Sorter referral * PT/OT- patient refuses [facility], but needs PT in house, will see if he qualifies for home PT Medicine Team consulted, we will follow this patient closely. Case DW Dr. Moses Manrique PGY-1 <Madeline Gerber - Last Filed: 08/09/17 14:23> Objective - Vital Signs/Intake and Output Vital Signs (last 24 hours): Temp Pulse Resp BP Pulse Ox 97.8 F 67 20 126/67 95 08/09/17 00:30 08/09/17 00:30 08/09/17 00:30 08/09/17 00:30 08/09/17 00:30 Intake and Output: 08/09/17 08/09/17 06:59 18:59 Intake Total 200 Balance 200 - Medications Medications: Current Medications Acetaminophen (Tylenol 325mg Tab) 650 mg PO Q6 PRN PRN Reason: Insomnia Last Admin: 08/08/17 21:18 Dose: 650 mg Aspirin (Aspirin Chewable) 81 mg PO DAILY [facility] Last Admin: 08/09/17 09:47 Dose: 81 mg Dexamethasone (Decadron Inj) 4 mg IV DAILY [facility] Last Admin: 08/09/17 09:46 Dose: 4 mg Dextrose (Dextrose 50% Inj) 0 ml IV STAT PRN; Protocol PRN Reason: Hyglycemia Protocol Dextrose (Glutose 15) 0 gm PO ONCE PRN; Protocol PRN Reason: Hypoglycemia Protocol Enoxaparin Sodium (Lovenox) 30 mg SC DAILY [facility] Last Admin: 08/09/17 09:46 Dose: 30 mg Famotidine (Pepcid) 20 mg PO DAILY [facility] Last Admin: 08/09/17 09:47 Dose: 20 mg Glucagon (Glucagen Diagnostic Kit) 0 mg IM STAT PRN; Protocol PRN Reason: Hypoglycemia Protocol Hydromorphone HCl (Dilaudid) 1 mg IVP Q4H PRN PRN Reason: Pain, moderate (4-7) Last Admin: 08/09/17 11:39 Dose: 1 mg Aztreonam 1 gm/ Sodium (Chloride) 100 mls @ 200 mls/hr IVPB Q8H [facility] Last Admin: 08/09/17 09:47 Dose: 200 mls/hr Vancomycin/Sodium Chloride (Vancocin) 1 gm in 200 mls @ 133 mls/hr IVPB Q48H [facility] Stop: 08/11/17 19:01 Last Admin: 08/08/17 19:35 Dose: 133 mls/hr Insulin Human Regular (Novolin R) 0 unit SC ACHS [facility] PRN Reason: Protocol Last Admin: 08/09/17 13:48 Dose: Not Given Rosuvastatin Calcium (Crestor) 5 mg PO HS [facility] Last Admin: 08/08/17 21:18 Dose: 5 mg Senna/Docusate Sodium (Senokot S 50 Mg-8.6 Mg) 2 tab PO HS [facility] Last Admin: 08/08/17 21:52 Dose: 2 tab Tamsulosin HCl (Flomax) 0.4 mg PO DAILY [facility] Last Admin: 08/09/17 09:47 Dose: 0.4 mg Temazepam (Restoril) 30 mg PO HS PRN PRN Reason: Insomnia Last Admin: 08/08/17 21:18 Dose: 30 mg - Labs Labs: 08/09/17 07:52 08/09/17 07:52 PT 12.3 SECONDS (9.7-12.2) H 08/05/17 07:16 INR 1.1 08/05/17 07:16 APTT 31 SECONDS (21-34) 08/05/17 07:16 Attending/Attestation - Attestation I have personally seen and examined this patient.: Yes I have fully participated in the care of the patient.: Yes I have reviewed all pertinent clinical information, including history, physical exam and plan: Yes Notes (Text): 08/09/17 14:10 THis is a 89 year old male with a past medical history of bladder cancer, BPH, left urethral stricture, urinary retention, CAD, DM2, HLD, and lumbar herniated discs. He was recently discharged from hospital 2 weeks ago s/p urinary retention with UTI. He presented to the ED today complaining of bilateral suprapubic abdominal pain that started two weeks ago and progressively worsened. 1.Urinary tract infection/ complicated,bladder cancer,urinary retension Dr Olivares consulted.continue azactam 2.DM Poor intalke,continue insulin coverage 3.Bladder cancer s/p LN biopsy 08/07/2017 follow biopsy,Dr Kim's follow up appreciated 4.Suprapubic pain started on dexamethason on dilaudid PRN.c/p severe pain perineal and suprapubic pain Add morphine ER with laxative 5.-Continue home medication- Flomax 0.4mg PO daily. Continue Crestor 5mg PO HS Insomnia-Continue Temazepam 30mg PO HS prn 08/09/17 14:22
[2017-08-09 07:59] LABS: BASO % 0.6 % (0.0-2.0); EOS # 0.3 K/uL (0.0-0.7); EOS % 3.3 % (0.0-4.0); HEMATOCRIT 39.3 % (35.0-51.0); LYMPH # 1.1 K/uL (1.0-4.3); LYMPH % 14.5 % (20.0-40.0); MEAN CELL VOLUME 86.9 fL (80.0-94.0); MEAN CORPUSCULAR HEMOGLOBIN 28.7 pg (27.0-31.0); MONO # 0.7 K/uL (0.0-0.8); MONO % 8.8 % (0.0-10.0); RED CELL DISTRIBUTION WIDTH 14.6 % (11.5-14.5); WHITE BLOOD COUNT 7.6 K/uL (4.8-10.8)
[2017-08-09] MEDS: (Novolin R) Insulin Human Regular 100 units/ml vial SC SCH ×4 (08:25→21:25)
[2017-08-09 08:28] LABS: POTASSIUM 4.3 mmol/L (3.6-5.2)
[2017-08-09 08:30] LABS: BILIRUBIN,TOTAL 0.8 mg/dL (0.2-1.3)
[2017-08-09 08:31] LABS: CALCIUM 9.2 mg/dl (8.6-10.4); MAGNESIUM 2.1 mg/dL (1.6-2.3); PHOSPHOROUS 3.5 mg/dL (2.5-4.5)
[2017-08-09 08:59] VITALS: RESP 20
[2017-08-09] MEDS: Enoxaparin 30 mg Syringe SC SCH (09:46)
[2017-08-09] MEDS: Dexamethasone 4 mg/1 ml IV SCH (09:46)
--- NOTE | 2017-08-09 12:31 | PN ---
DATE: ENDO FOLLOWUP NOTE LOCATION: Room 369. SUBJECTIVE: This is an 89-year-old male with recent uncontrolled type 2 diabetes now being followed closely by hematology, oncology, and urology for known history of bladder carcinoma presenting here also with a urinary tract infection with bacteremia and ongoing IV antibiotics as given. His oral intake is quite valuable at this time and his glycemic profile has improved with occasional glycemic fluctuation as noted. LABORATORY DATA: His glucose level today have ranged from 136 to 202 mg/dL. His latest chemistry showed BUN of 36, sodium 140, potassium 4.3, chloride 101, CO2 of 24, glucose 118, and creatinine 1.8. ASSESSMENT AND PLAN: His bedtime glucose was 120 to 141 mg/dL. So, at this time, we will hold off any oral hypoglycemic drug therapy because of the variability of his oral intake. We will continue the very low dose correction scale as given. We will obtain serial chemistries and supplement accordingly as needed. Sharon Samano MD
[2017-08-09] MEDS ORDERED: POLYETHYLENE GLYCOL 3350 17 GM/Dose PACKET PO PRN (14:21)
[2017-08-09] MEDS: Morphine 15 mg SR Tab PO SCH (21:23)
[2017-08-09] MEDS: Docusate-Senna 50 mg-8.6 mg Tab PO SCH (21:24)
[2017-08-10] MEDS: Aztreonam 1 GM in Sodium Chloride 0.9% 100 ML IVPB SCH ×3 (01:42→21:15)
[2017-08-10] MEDS ORDERED: Oxycodone/Acetaminophen 5/325 mg Tab PO PRN (04:21)
--- NOTE | 2017-08-10 07:20 | CP.PCM.PN ---
<Mushtaq Manrique - Last Filed: 08/10/17 15:17> Subjective - Date & Time of Evaluation Date of Evaluation: 08/10/17 Time of Evaluation: 08:00 - Subjective Subjective: Medicine Progress Note for Dr. Gerber Patient seen and examined at bedside. Overnight, patient's IV fell off. Both nursing and myself have spoken to the patient about the importance of inserting a new line but the patient has refused. Patient states that he wants to be given his medications orally. Patient states that he otherwise feels fine today. Appetite remains the same. Patient denies fever, chills, chest pain, dyspnea, abdominal pain, dysuria. Objective - Vital Signs/Intake and Output Vital Signs (last 24 hours): Temp Pulse Resp BP Pulse Ox 97.8 F 67 20 123/62 96 08/09/17 23:26 08/09/17 23:26 08/09/17 23:26 08/09/17 23:26 08/09/17 23:26 - Medications Medications: Current Medications Acetaminophen (Tylenol 325mg Tab) 650 mg PO Q6 PRN PRN Reason: Insomnia Last Admin: 08/10/17 01:46 Dose: 650 mg Aspirin (Aspirin Chewable) 81 mg PO DAILY [facility] Last Admin: 08/09/17 09:47 Dose: 81 mg Dexamethasone (Decadron Inj) 4 mg IV DAILY [facility] Last Admin: 08/09/17 09:46 Dose: 4 mg Dextrose (Dextrose 50% Inj) 0 ml IV STAT PRN; Protocol PRN Reason: Hyglycemia Protocol Dextrose (Glutose 15) 0 gm PO ONCE PRN; Protocol PRN Reason: Hypoglycemia Protocol Docusate Sodium (Colace) 100 mg PO BID [facility] Last Admin: 08/09/17 17:25 Dose: 100 mg Enoxaparin Sodium (Lovenox) 30 mg SC DAILY [facility] Last Admin: 08/09/17 09:46 Dose: 30 mg Famotidine (Pepcid) 20 mg PO DAILY [facility] Last Admin: 08/09/17 09:47 Dose: 20 mg Glucagon (Glucagen Diagnostic Kit) 0 mg IM STAT PRN; Protocol PRN Reason: Hypoglycemia Protocol Hydromorphone HCl (Dilaudid) 1 mg IVP Q4H PRN PRN Reason: Pain, moderate (4-7) Last Admin: 08/09/17 19:59 Dose: 1 mg Aztreonam 1 gm/ Sodium (Chloride) 100 mls @ 200 mls/hr IVPB Q8H [facility] Last Admin: 08/10/17 01:42 Dose: 200 mls/hr Vancomycin/Sodium Chloride (Vancocin) 1 gm in 200 mls @ 133 mls/hr IVPB Q48H [facility] Stop: 08/11/17 19:01 Last Admin: 08/08/17 19:35 Dose: 133 mls/hr Insulin Human Regular (Novolin R) 0 unit SC ACHS [facility] PRN Reason: Protocol Last Admin: 08/09/17 21:25 Dose: Not Given Morphine Sulfate (Morphine Extended Release Tab) 15 mg PO Q12 [facility] Last Admin: 08/09/17 21:23 Dose: 15 mg Oxycodone/Acetaminophen (Percocet 5/325 Mg Tab) 2 tab PO Q6H PRN PRN Reason: Pain, severe (8-10) Stop: 08/13/17 04:22 Last Admin: 08/10/17 04:27 Dose: 2 tab Polyethylene Glycol (Miralax) 17 gm PO DAILY PRN PRN Reason: Constipation Rosuvastatin Calcium (Crestor) 5 mg PO HS [facility] Last Admin: 08/09/17 21:24 Dose: 5 mg Senna/Docusate Sodium (Senokot S 50 Mg-8.6 Mg) 2 tab PO HS [facility] Last Admin: 08/09/17 21:24 Dose: 2 tab Tamsulosin HCl (Flomax) 0.4 mg PO DAILY [facility] Last Admin: 08/09/17 09:47 Dose: 0.4 mg Temazepam (Restoril) 30 mg PO HS PRN PRN Reason: Insomnia Last Admin: 08/09/17 21:23 Dose: 30 mg - Labs Labs: 08/09/17 07:52 08/09/17 07:52 PT 12.3 SECONDS (9.7-12.2) H 08/05/17 07:16 INR 1.1 08/05/17 07:16 APTT 31 SECONDS (21-34) 08/05/17 07:16 - Constitutional Appears: No Acute Distress, Cachectic, Chronically Ill - Head Exam Head Exam: ATRAUMATIC, NORMOCEPHALIC - Eye Exam Eye Exam: EOMI, PERRL - ENT Exam ENT Exam: Mucous Membranes Moist - Respiratory Exam Respiratory Exam: Clear to Ausculation Bilateral, NORMAL BREATHING PATTERN. absent: Rales, Rhonchi, Wheezes - Cardiovascular Exam Cardiovascular Exam: REGULAR RHYTHM, +S1, +S2 - GI/Abdominal Exam GI & Abdominal Exam: Soft, Normal Bowel Sounds. absent: Tenderness - Extremities Exam Extremities Exam: absent: Calf Tenderness, Pedal Edema - Neurological Exam Neurological Exam: Alert, Awake, Oriented x3 - Psychiatric Exam Psychiatric exam: Depressed - Skin Skin Exam: Dry, Warm Assessment and Plan - Assessment and Plan (Free Text) Plan: Please note that patient lost IV access and refusing IV insertion. Requests only oral medications. Percocet added for pain instead of IV dilaudid. Decadron switched to PO version. IV antibiotics switched to PO as well. Diabetes * Hga1c 7.5 (06/2017) * Accuchecks * Endocrinology consulted- Dr. Samano - help appreciated * Dr. Samano's recommendation is no oral diabetic medications due to poor PO intake. * Patient has poor appetite will monitor for hypoglycemia * Ensures added as supplements * [employer] Engineer referral due to poor appetite and newly diagnosed diabetic * ISS-low Hx of Bladder Cancer S/P Left Nephrectomy 12/2016 Lymphadenopathy * Patient had imaging/scan with their hem/onc doctor, Dr. Fermin, for suprapubic pain and lymphadenopathy. Patient does not have results from imaging study. Patient has a history of bladder cancer. * Follow recommendations as per Dr. Fermin, help appreciated. * CT Guided biopsy -on 08/07/17 * Diluadid 1mg PRN pain Urinary Tract Infection Colonized? * ID consulted - Dr. Salas- help appreciated * UA: + LE * Urine culture grew E. Faecalis * Aztreonam 2gm Q8H 2/2 PCN allergy - (past urine cultures were resistant to Cipro) * F/u repeat urine culture ordered on 08/07/17. Regrew E. Faecalis with sensitivity to Cipro and Levaquin but given past UTI, Dr. Salas recommends avoiding Cipro. Per Dr. Salas, given his allergy to penicillin, patient may take Levaquin 500 mg PO daily for 10 days. Levaquin is not on formulary so we will put patient on oral Avelox for now. BPH (benign prostatic hyperplasia) * Continue home medication- Flomax 0.4mg PO daily. Hypercholesterolemia * Continue Crestor 5mg PO HS Insomnia * Continue Temazepam 30mg PO HS prn Prophylactic measure * GI PPX: Pepcid 20mg PO daily * DVT PPX: SCDs, will restart lovenox after biopsy * Heart Healthy Diet with moderate carbohydrates * Glucerna added as supplements * [employer] Engineer referral * PT/OT- patient refuses ADRIA, but needs PT in house. We will be signing off on this patient. Dr. Nova Lancaster was called and made aware. We will leave a prescription in the chart for the patient's Levaquin 500 mg PO daily for [address] Zabrina Manrique PGY-1 <Madeline Gerber - Last Filed: 08/10/17 20:20> Objective - Vital Signs/Intake and Output Vital Signs (last 24 hours): Temp Pulse Resp BP Pulse Ox 97.8 F 66 20 119/70 94 L 08/10/17 16:00 08/10/17 16:00 08/10/17 16:00 08/10/17 16:00 08/10/17 16:00 Intake and Output: 08/10/17 08/11/17 18:59 06:59 Intake Total 540 Balance 540 - Medications Medications: Current Medications Acetaminophen (Tylenol 325mg Tab) 650 mg PO Q6 PRN PRN Reason: Insomnia Last Admin: 08/10/17 01:46 Dose: 650 mg Aspirin (Aspirin Chewable) 81 mg PO DAILY [facility] Last Admin: 08/10/17 10:49 Dose: 81 mg Dexamethasone (Decadron) 4 mg PO DAILY [facility] Last Admin: 08/10/17 16:30 Dose: 4 mg Dextrose (Dextrose 50% Inj) 0 ml IV STAT PRN; Protocol PRN Reason: Hyglycemia Protocol Dextrose (Glutose 15) 0 gm PO ONCE PRN; Protocol PRN Reason: Hypoglycemia Protocol Docusate Sodium (Colace) 100 mg PO BID [facility] Last Admin: 08/10/17 10:50 Dose: 100 mg Enoxaparin Sodium (Lovenox) 30 mg SC DAILY [facility] Last Admin: 08/10/17 10:48 Dose: 30 mg Famotidine (Pepcid) 20 mg PO DAILY [facility] Last Admin: 08/10/17 10:49 Dose: 20 mg Glucagon (Glucagen Diagnostic Kit) 0 mg IM STAT PRN; Protocol PRN Reason: Hypoglycemia Protocol Hydromorphone HCl (Dilaudid) 1 mg IVP Q4H PRN PRN Reason: Pain, moderate (4-7) Last Admin: 08/09/17 19:59 Dose: 1 mg Aztreonam 1 gm/ Sodium (Chloride) 100 mls @ 200 mls/hr IVPB Q8H [facility] Last Admin: 08/10/17 10:50 Dose: Not Given Vancomycin/Sodium Chloride (Vancocin) 1 gm in 200 mls @ 133 mls/hr IVPB Q48H [facility] Stop: 08/11/17 19:01 Last Admin: 08/08/17 19:35 Dose: 133 mls/hr Insulin Human Regular (Novolin R) 0 unit SC ACHS [facility] PRN Reason: Protocol Last Admin: 08/10/17 17:21 Dose: Not Given Morphine Sulfate (Morphine Extended Release Tab) 15 mg PO Q12 [facility] Last Admin: 08/10/17 10:49 Dose: 15 mg Moxifloxacin HCl (Avelox) 400 mg PO DAILY [facility] Last Admin: 08/10/17 16:30 Dose: 400 mg Oxycodone/Acetaminophen (Percocet 5/325 Mg Tab) 2 tab PO Q6H PRN PRN Reason: Pain, severe (8-10) Stop: 08/13/17 04:22 Last Admin: 08/10/17 04:27 Dose: 2 tab Polyethylene Glycol (Miralax) 17 gm PO DAILY PRN PRN Reason: Constipation Rosuvastatin Calcium (Crestor) 5 mg PO HS [facility] Last Admin: 08/09/17 21:24 Dose: 5 mg Senna/Docusate Sodium (Senokot S 50 Mg-8.6 Mg) 2 tab PO HS [facility] Last Admin: 08/09/17 21:24 Dose: 2 tab Tamsulosin HCl (Flomax) 0.4 mg PO DAILY [facility] Last Admin: 08/10/17 10:49 Dose: 0.4 mg Temazepam (Restoril) 30 mg PO HS PRN PRN Reason: Insomnia Last Admin: 08/09/17 21:23 Dose: 30 mg - Labs Labs: 08/10/17 08:05 08/10/17 08:05 PT 12.3 SECONDS (9.7-12.2) H 08/05/17 07:16 INR 1.1 08/05/17 07:16 APTT 31 SECONDS (21-34) 08/05/17 07:16 Attending/Attestation - Attestation I have personally seen and examined this patient.: Yes I have fully participated in the care of the patient.: Yes I have reviewed all pertinent clinical information, including history, physical exam and plan: Yes Notes (Text): Patient was seen and examined,lying comfortable without pain.Discussed with the resident and agree with the assessment and plan. We will be signing off this patient.Dr Lancaster was informed by the resident.
[2017-08-10] MEDS: (Novolin R) Insulin Human Regular 100 units/ml vial SC SCH ×4 (08:23→21:14)
[2017-08-10 08:29] LABS: BASO % 0.6 % (0.0-2.0); EOS # 0.1 K/uL (0.0-0.7); EOS % 1.9 % (0.0-4.0); HEMATOCRIT 37.2 % (35.0-51.0); LYMPH # 1.4 K/uL (1.0-4.3); LYMPH % 18.9 % (20.0-40.0); MEAN CELL VOLUME 85.3 fL (80.0-94.0); MEAN PLATELET VOLUME 8.1 fL (7.2-11.7); MONO # 0.7 K/uL (0.0-0.8); NRBC % 0.1 % (0.0-2.0); RED CELL DISTRIBUTION WIDTH 14.1 % (11.5-14.5); WHITE BLOOD COUNT 7.3 K/uL (4.8-10.8)
[2017-08-10 08:39] LABS: ALB/GLOB RATIO 0.9 (1.0-2.1); BILIRUBIN,TOTAL 0.8 mg/dL (0.2-1.3); TOTAL PROTEIN 8.5 g/dL (6.3-8.3)
[2017-08-10 08:40] LABS: CALCIUM 9.4 mg/dl (8.6-10.4); PHOSPHOROUS 2.9 mg/dL (2.5-4.5)
[2017-08-10] MEDS ORDERED: POLYETHYLENE GLYCOL 3350 17 GM/Dose PACKET PO SCH (10:00)
[2017-08-10] MEDS: Enoxaparin 30 mg Syringe SC SCH (10:48)
[2017-08-10] MEDS: Morphine 15 mg SR Tab PO SCH ×2 (10:49→21:13)
[2017-08-10] MEDS: Dexamethasone 4 mg/1 ml IV SCH (10:51)
--- NOTE | 2017-08-10 15:24 | CP.PCM.PN ---
Subjective - Date & Time of Evaluation Date of Evaluation: 08/10/17 Time of Evaluation: 10:00 - Subjective Subjective: afebrile alert nad Objective - Vital Signs/Intake and Output Vital Signs (last 24 hours): Temp Pulse Resp BP Pulse Ox 98.5 F 67 20 138/75 96 08/10/17 08:00 08/10/17 08:00 08/10/17 08:00 08/10/17 08:00 08/10/17 08:00 Intake and Output: 08/10/17 08/10/17 06:59 18:59 Intake Total 300 Balance 300 - Medications Medications: Current Medications Acetaminophen (Tylenol 325mg Tab) 650 mg PO Q6 PRN PRN Reason: Insomnia Last Admin: 08/10/17 01:46 Dose: 650 mg Aspirin (Aspirin Chewable) 81 mg PO DAILY [facility] Last Admin: 08/10/17 10:49 Dose: 81 mg Dexamethasone (Decadron) 4 mg PO DAILY [facility] Dextrose (Dextrose 50% Inj) 0 ml IV STAT PRN; Protocol PRN Reason: Hyglycemia Protocol Dextrose (Glutose 15) 0 gm PO ONCE PRN; Protocol PRN Reason: Hypoglycemia Protocol Docusate Sodium (Colace) 100 mg PO BID [facility] Last Admin: 08/10/17 10:50 Dose: 100 mg Enoxaparin Sodium (Lovenox) 30 mg SC DAILY [facility] Last Admin: 08/10/17 10:48 Dose: 30 mg Famotidine (Pepcid) 20 mg PO DAILY [facility] Last Admin: 08/10/17 10:49 Dose: 20 mg Glucagon (Glucagen Diagnostic Kit) 0 mg IM STAT PRN; Protocol PRN Reason: Hypoglycemia Protocol Hydromorphone HCl (Dilaudid) 1 mg IVP Q4H PRN PRN Reason: Pain, moderate (4-7) Last Admin: 08/09/17 19:59 Dose: 1 mg Aztreonam 1 gm/ Sodium (Chloride) 100 mls @ 200 mls/hr IVPB Q8H [facility] Last Admin: 08/10/17 10:50 Dose: Not Given Vancomycin/Sodium Chloride (Vancocin) 1 gm in 200 mls @ 133 mls/hr IVPB Q48H [facility] Stop: 08/11/17 19:01 Last Admin: 08/08/17 19:35 Dose: 133 mls/hr Insulin Human Regular (Novolin R) 0 unit SC ACHS [facility] PRN Reason: Protocol Last Admin: 08/10/17 12:20 Dose: Not Given Morphine Sulfate (Morphine Extended Release Tab) 15 mg PO Q12 [facility] Last Admin: 08/10/17 10:49 Dose: 15 mg Moxifloxacin HCl (Avelox) 400 mg PO DAILY [facility] Oxycodone/Acetaminophen (Percocet 5/325 Mg Tab) 2 tab PO Q6H PRN PRN Reason: Pain, severe (8-10) Stop: 08/13/17 04:22 Last Admin: 08/10/17 04:27 Dose: 2 tab Polyethylene Glycol (Miralax) 17 gm PO DAILY PRN PRN Reason: Constipation Rosuvastatin Calcium (Crestor) 5 mg PO HS [facility] Last Admin: 08/09/17 21:24 Dose: 5 mg Senna/Docusate Sodium (Senokot S 50 Mg-8.6 Mg) 2 tab PO HS [facility] Last Admin: 08/09/17 21:24 Dose: 2 tab Tamsulosin HCl (Flomax) 0.4 mg PO DAILY [facility] Last Admin: 08/10/17 10:49 Dose: 0.4 mg Temazepam (Restoril) 30 mg PO HS PRN PRN Reason: Insomnia Last Admin: 08/09/17 21:23 Dose: 30 mg - Labs Labs: 08/10/17 08:05 08/10/17 08:05 PT 12.3 SECONDS (9.7-12.2) H 08/05/17 07:16 INR 1.1 08/05/17 07:16 APTT 31 SECONDS (21-34) 08/05/17 07:16 - Constitutional Appears: Non-toxic, Chronically Ill - Head Exam Head Exam: NORMOCEPHALIC - Eye Exam Eye Exam: PERRL - ENT Exam ENT Exam: Mucous Membranes Dry - Neck Exam Neck Exam: absent: Lymphadenopathy - Respiratory Exam Respiratory Exam: Decreased Breath Sounds - Cardiovascular Exam Cardiovascular Exam: REGULAR RHYTHM - GI/Abdominal Exam GI & Abdominal Exam: Distended, Soft - Rectal Exam Rectal Exam: Deferred - Exam Exam: NORMAL INSPECTION - Extremities Exam Extremities Exam: absent: Pedal Edema - Back Exam Back Exam: absent: CVA tenderness (L), CVA tenderness (R) Assessment and Plan (1) Urothelial carcinoma of bladder Status: Acute (2) Urothelial carcinoma of bladder Status: Acute (3) History of nephrectomy Status: Acute (4) History of nephrectomy Status: Acute (5) Back pain Status: Acute (6) BPH (benign prostatic hyperplasia) Status: Acute (7) BPH (benign prostatic hypertrophy) with urinary obstruction Status: Acute (8) HTN (hypertension) Status: Acute (9) Hydronephrosis Status: Acute (10) Intractable abdominal pain Status: Acute (11) Lesion of ureter Status: Acute - Assessment and Plan (Free Text) Assessment: cont po antibiotics as odered
[2017-08-10] MEDS: Vancomycin 1 gm/NS 200 ml 1 GM/200 ML BAG IVPB SCH (19:00)
[2017-08-10] MEDS: Docusate-Senna 50 mg-8.6 mg Tab PO SCH (21:16)
[2017-08-10 23:25] VITALS: O2SAT 96
[2017-08-11] MEDS: Aztreonam 1 GM in Sodium Chloride 0.9% 100 ML IVPB SCH ×4 (02:03→17:24)
[2017-08-11] MEDS: (Novolin R) Insulin Human Regular 100 units/ml vial SC SCH ×4 (07:35→21:14)
[2017-08-11 07:41] LABS: BASO % 0.4 % (0.0-2.0); EOS % 0.3 % (0.0-4.0); HEMATOCRIT 38.1 % (35.0-51.0); LYMPH # 0.8 K/uL (1.0-4.3); LYMPH % 9.7 % (20.0-40.0); MEAN CORPUSCULAR HEMOGLOBIN 29.1 pg (27.0-31.0); MEAN CORPUSCULAR HGB CONC 33.8 g/dL (33.0-37.0); MEAN PLATELET VOLUME 8.2 fL (7.2-11.7); MONO # 0.4 K/uL (0.0-0.8); MONO % 5.1 % (0.0-10.0); PLATELET COUNT 256 K/uL (130-400); RED CELL DISTRIBUTION WIDTH 13.8 % (11.5-14.5); WHITE BLOOD COUNT 8.1 K/uL (4.8-10.8)
[2017-08-11 07:53] LABS: POTASSIUM 5.2 mmol/L (3.6-5.2)
[2017-08-11 07:54] LABS: ALB/GLOB RATIO 1.1 (1.0-2.1); BILIRUBIN,TOTAL 0.8 mg/dL (0.2-1.3); TOTAL PROTEIN 8.1 g/dL (6.3-8.3)
[2017-08-11 07:55] LABS: CALCIUM 9.4 mg/dl (8.6-10.4); PHOSPHOROUS 4.2 mg/dL (2.5-4.5)
--- NOTE | 2017-08-11 08:31 | PN ---
DATE: 08/10/2017 ENDOCRINOLOGY FOLLOW NOTE LOCATION: Room 369. SUBJECTIVE: This is an 89-year-old male with recent uncontrolled type 2 diabetes currently on IV steroid therapy with Decadron given as 4 mg IV once daily as ordered and recent glycemic fluctuations as expected thereof. LABORATORY DATA: His glucose levels are ranging from 121 to 194 and 219 mg per dL. His latest chemistries show the BUN of 34, sodium 137, potassium 4.0, chloride 101, CO2 of 24, glucose 109, and creatinine 1.7. ASSESSMENT AND PLAN: So at this time, we will continue the low dose correction scale using regular insulin as ordered. We will hold off the initiation of any long acting basal insulin or even a low dose oral hypoglycemic therapy for now because of the variability of his oral intake. We will obtain serial chemistry and supplement accordingly as needed. We will follow. Sharon Samano MD
[2017-08-11 08:36] LABS: TOTAL CELLS COUNTED 100
[2017-08-11 08:37] LABS: NEUTROPHIL 87 % (50-75)
[2017-08-11] MEDS: Enoxaparin 30 mg Syringe SC SCH (09:13)
[2017-08-11] MEDS: Morphine 15 mg SR Tab PO SCH ×2 (10:55→21:13)
--- NOTE | 2017-08-11 14:28 | PCM.URO ---
Urology Progress Note - Objective Lab Studies: Reviewed Lab Results Last 24 Hours: Laboratory Results - last 24 hr 08/10/17 08/10/17 08/11/17 16:11 21:29 07:18 WBC RBC Hgb Hct MCV MCH MCHC RDW Plt Count MPV Neut % (Auto) Lymph % (Auto) [place] % (Auto) Eos % (Auto) Baso % (Auto) Neut # Lymph # [place] # Eos # Baso # Neutrophils % (Manual) Lymphocytes % (Manual) Monocytes % (Manual) Platelet Estimate RBC Morphology Sodium Potassium Chloride Carbon Dioxide Anion Gap BUN Creatinine Est GFR ( Amer) Est GFR (Non-Af Amer) POC Glucose (mg/dL) 152 H 177 H 154 H Random Glucose Calcium Phosphorus Magnesium Total Bilirubin AST ALT Alkaline Phosphatase Total Protein Albumin Globulin Albumin/Globulin Ratio 08/11/17 08/11/17 08/11/17 07:31 07:31 11:15 WBC 8.1 RBC 4.43 Hgb 12.9 Hct 38.1 MCV 86.0 MCH 29.1 MCHC 33.8 RDW 13.8 Plt Count 256 MPV 8.2 Neut % (Auto) 84.5 H Lymph % (Auto) 9.7 L [place] % (Auto) 5.1 Eos % (Auto) 0.3 Baso % (Auto) 0.4 Neut # 6.8 Lymph # 0.8 L [place] # 0.4 Eos # 0.0 Baso # 0.0 Neutrophils % (Manual) 87 H Lymphocytes % (Manual) 9 L Monocytes % (Manual) 4 Platelet Estimate Normal RBC Morphology Normal Sodium 134 Potassium 5.2 Chloride 98 Carbon Dioxide 25 Anion Gap 17 BUN 46 H Creatinine 2.1 H Est GFR ( Amer) 36 Est GFR (Non-Af Amer) 30 POC Glucose (mg/dL) 171 H Random Glucose 138 H Calcium 9.4 Phosphorus 4.2 Magnesium 2.0 Total Bilirubin 0.8 AST 24 ALT 23 Alkaline Phosphatase 73 Total Protein 8.1 Albumin 4.3 Globulin 3.8 Albumin/Globulin Ratio 1.1 Intake & Output: Intake & Output 08/10/17 08/11/17 08/11/17 18:59 06:59 18:59 Intake Total 540 240 Balance 540 240 Intake: Intake, IV Amount 100 Right Forearm 100 Oral 440 240 Other: # Voids Urine, Voided 3 3 # Bowel Movements 0 0 Vital Signs: Vital Signs - 24 hr 10/15/17 10/15/17 10/16/17 16:00 23:20 07:45 Temperature 97.8 F 98.1 F 98.1 F Pulse Rate 66 62 66 Respiratory 20 20 20 Rate Blood Pressure 119/70 128/68 131/74 O2 Sat by Pulse 94 L 96 96 Oximetry
--- NOTE | 2017-08-11 16:34 | PN ---
ENDO FOLLOW NOTE LOCATION: In room 369. SUBJECTIVE: This is an 89-year-old male with recent uncontrolled type 2 diabetes; currently on oral steroid therapy as ordered and is being followed closely for metabolic management. His glycemic levels are fluctuating, but much improved at this time. The latest glucose levels have ranged from 154 to 171 mg/dL. The latest chemistries showed a BUN of 46, sodium 134, potassium 5.2, chloride 98, CO2 of 25, glucose 138, and creatinine 2.1. So at this time, we will continue the low dose correction scale using regular insulin as ordered and hold off on any kind of basal insulin for now. We will obtain serial chemistry and supplement accordingly as needed. We will follow. Sharon Samano MD
[2017-08-11] MEDS: Docusate-Senna 50 mg-8.6 mg Tab PO SCH (21:13)
[2017-08-12] MEDS: Aztreonam 1 GM in Sodium Chloride 0.9% 100 ML IVPB SCH ×2 (02:00→09:20)
[2017-08-12 06:56] LABS: BASO # 0.1 K/uL (0.0-0.2); BASO % 0.7 % (0.0-2.0); EOS # 0.1 K/uL (0.0-0.7); EOS % 1.3 % (0.0-4.0); HEMATOCRIT 42.3 % (35.0-51.0); LYMPH # 1.6 K/uL (1.0-4.3); LYMPH % 19.7 % (20.0-40.0); MEAN CELL VOLUME 87.6 fL (80.0-94.0); MEAN CORPUSCULAR HEMOGLOBIN 28.8 pg (27.0-31.0); MEAN CORPUSCULAR HGB CONC 32.9 g/dL (33.0-37.0); MEAN PLATELET VOLUME 8.5 fL (7.2-11.7); MONO # 0.6 K/uL (0.0-0.8); MONO % 7.7 % (0.0-10.0); NRBC % 0.1 % (0.0-2.0); RED CELL DISTRIBUTION WIDTH 14.4 % (11.5-14.5); WHITE BLOOD COUNT 8.2 K/uL (4.8-10.8)
[2017-08-12 07:16] LABS: ALB/GLOB RATIO 1.1 (1.0-2.1); BILIRUBIN,TOTAL 0.8 mg/dL (0.2-1.3); TOTAL PROTEIN 8.9 g/dL (6.3-8.3)
[2017-08-12 07:17] LABS: CALCIUM 9.8 mg/dl (8.6-10.4); MAGNESIUM 2.1 mg/dL (1.6-2.3); PHOSPHOROUS 4.6 mg/dL (2.5-4.5)
[2017-08-12 07:26] VITALS: BP 135/71; PULSE 61; TEMP 97.4
[2017-08-12] MEDS: (Novolin R) Insulin Human Regular 100 units/ml vial SC SCH (08:11)
[2017-08-12] MEDS: Morphine 15 mg SR Tab PO SCH (09:24)
[2017-08-12] MEDS: Enoxaparin 30 mg Syringe SC SCH (10:21)
--- NOTE | 2017-08-12 20:13 | PN ---
ENDO FOLLOWUP NOTE LOCATION: In room 369. SUBJECTIVE: This is an 89-year-old male with recent uncontrolled type 2 diabetes, now being followed closely for metabolic management. His glycemic levels are fluctuating, but much improved at this time and the latest glucose levels have ranged from 113 to 135 mg/dL. His latest chemistries showed a BUN of 48, sodium 136, potassium 4.0, chloride 94, CO2 of 27, glucose 135 and creatinine 2.0. His hemoglobin A1c was actually reported at 7.9%. So at this time, we will continue the fingerstick glucose testing as ordered, but we will hold off any kind of oral hypoglycemic drug therapy, no any basal insulin therapy at this time. His oral intake is quite variable for now and plus p.r.n. dosing of insulin therapy as indicated. He will follow with his medical doctor for outpatient medical and diabetic management. Sharon Samano MD
--- NOTE | 2017-08-17 16:46 | HP ---
UROLOGY ADMISSION HISTORY AND PHYSICAL REASON FOR ADMISSION: Back pain. HISTORY OF PRESENT ILLNESS: Mr. Peter is a very pleasant gentleman. See also separately dictated consult note from me, but I am actually admitting him to my service with back pain. He has a significant urologic history, although it is not as relevant for now. He has a significant history of prostate, history of urinary retention, voiding dysfunction, gross hematuria. 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 He is almost 89 years old; next month he will be 89. He has had episodes of retention. We had done a prostatectomy either a PVP GreenLight laser TURP or an electrocautery, whichever, I have to check my records back. He also had, I sent him to another physician for a nephroureterectomy of a transitional cell, which he had robotically. Now, of late, he is metastatic. He actually has an outpatient PET scan that showed metastatic disease. He is now in the ER with pain. But for various reasons, I have had a chance to speak to the ER doctor. For various medical, social and other doctor reasons, I am admitting the patient to my service. See the plans listed below. Although the patient is not in retention, we have done a bladder scan and he is not currently in any retention. PAST MEDICAL AND SURGICAL HISTORY: As is listed on the chart. No history of an OR or CVA. SOCIAL HISTORY: Essentially otherwise unremarkable. He lives mostly alone. He takes care of himself fairly significantly. See below listed plan. PHYSICAL EXAMINATION: GENERAL: A well-nourished male. He is actually currently in no apparent distress, but he notes that he is using pain medicine. ABDOMEN: Relatively soft, not grossly distended. The remainder of the exam is otherwise unremarkable. LABORATORY DATA: See chart. Recent PET scan. I had a chance to see the report. I have had a chance to speak to the doctor about it. DIAGNOSES: 1. Back pain. 2. Metastatic carcinoma. I think I had a chance to define the cell type and the origin, it is possibly transitional cell and possible colon cancer, I am not sure, you need to find out from the details. PLAN: The patient is going to be admitted under my name. We are going to obtain medical consultation for routine monitoring in this 89, almost 89-year-old gentleman. We will also obtain a consultation from his medical oncologist and then further plans will follow. Wilson Lancaster MD
--- NOTE | 2017-08-17 21:06 | DS ---
UROLOGY DISCHARGE SUMMARY See history and physical, see progress notes, see consult notes. HOSPITAL COURSE: The patient was admitted under my service with some back pain. He has metastatic carcinoma. He is under the care of the oncologist. He had a CAT scan. He had a lymph node biopsy. We will get Social Work to see he is an 89-year-old, almost 89, living alone. He was admitted for pain, but he is not in retention and he is not bleeding currently. He is now discharged home in stable condition. PAST MEDICAL AND SURGICAL HISTORY: Listed on the chart. The patient is seen by the medical people. His diabetes is under control. REVIEW OF SYSTEMS: Everything was done, on the chart already. DIAGNOSIS AT THE TIME OF DISCHARGE: Metastatic carcinoma. PLAN: He is going to have outpatient followup with Oncology. We will also arrange him socially to a system for his care. I have had a chance also during the hospital course to speak to his nephew. Further plans will follow. The patient is encouraged to call if any questions or problems. I had a chance to speak to the patient. He has my phone number. He reaches out to me as well. Further plans to follow. Wilson Lancaster MD
== END 2017-08-12 14:30 | disposition home or self-care (01) | DRG 824 ==
LOC: C.ER 11:39 → C.9E 14:02 → C.3T 15:18 → OBSVTOIN 08-05 11:42
PROVIDERS: ADMIT Urology; ATTEND Urology
PROC: 07BD3ZX Excision of Aortic Lymphatic, Percutaneous Approach, Diagnostic (ICD-10-PCS; principal; 2017-08-07 11:00)
DX: C77.2 Secondary and unspecified malignant neoplasm of intra-abdominal lymph nodes (principal); N13.8 Other obstructive and reflux uropathy; E11.22 Type 2 diabetes mellitus with diabetic chronic kidney disease; R78.81 Bacteremia; I13.10 Hypertensive heart and chronic kidney disease without heart failure, with stage 1 through stage 4 chronic kidney disease, or unspecified chronic kidney disease; E11.65 Type 2 diabetes mellitus with hyperglycemia; E11.42 Type 2 diabetes mellitus with diabetic polyneuropathy; N39.0 Urinary tract infection, site not specified; E11.319 Type 2 diabetes mellitus with unspecified diabetic retinopathy without macular edema; E78.00 Pure hypercholesterolemia, unspecified; G47.00 Insomnia, unspecified; I25.10 Atherosclerotic heart disease of native coronary artery without angina pectoris; E11.51 Type 2 diabetes mellitus with diabetic peripheral angiopathy without gangrene; N40.1 Benign prostatic hyperplasia with lower urinary tract symptoms; N18.9 Chronic kidney disease, unspecified; M51.16 Intervertebral disc disorders with radiculopathy, lumbar region; M89.9 Disorder of bone, unspecified; B95.2 Enterococcus as the cause of diseases classified elsewhere; Z87.11 Personal history of peptic ulcer disease; Z85.51 Personal history of malignant neoplasm of bladder; Z95.1 Presence of aortocoronary bypass graft; Z87.891 Personal history of nicotine dependence; Z79.899 Other long term (current) drug therapy; Z87.440 Personal history of urinary (tract) infections; Z88.0 Allergy status to penicillin; Z16.23 Resistance to quinolones and fluoroquinolones; Z90.5 Acquired absence of kidney; Z79.84 Long term (current) use of oral hypoglycemic drugs

== ENCOUNTER 2017-08-19 12:14 | Inpatient (IN) | payer MEDICARE ==
[2017-08-19 12:14] VITALS: BMI 23.7
--- NOTE | 2017-08-19 13:01 | C.PDOC ---
History Of Present Illness 89 yr old male with history of cancer (unknown), presents to the ER with complaints of SOB and increasing weakness for the past 2 days. Patient is also complaining of lower pelvic pain but states its always there. Patient states he was diagnosed with cancer last week. Patient denies fever, chills, chest pain, cough, nausea, vomiting, diarrhea or dysuria. Time Seen by Provider: 08/19/17 12:18 Chief Complaint (Nursing): Abdominal Pain History Per: Patient History/Exam Limitations: no limitations Onset/Duration Of Symptoms: Days (2) Past Medical History Reviewed: Historical Data, Nursing Documentation, Vital Signs Vital Signs: Last Vital Signs Temp 97.6 F 08/19/17 16:24 Pulse 66 08/19/17 17:25 Resp 18 08/19/17 17:25 BP 110/65 08/19/17 17:25 Pulse Ox 96 08/19/17 17:25 - Medical History PMH: Arthritis (LBP, HERNIATED DISC), Diabetes, Gastrointestinal Ulcer (' bleeding'), Gall Bladder Disease, HTN, Hypercholesterolemia, Chronic Kidney Disease Surgical History: CABG (x4), Cholecystectomy, Endoscopy - [facility] Procedures DESTRUCTION OF PROSTATE, ENDO (11/26/16) EXCISION OF AORTIC LYMPHATIC, PERCUTANEOUS APPROACH, DIAGN (08/05/17) EXCISION OF LEFT URETER, ENDO, DIAGN (09/13/16) FLUOROSCOPY OF LEFT KIDNEY, URETER AND BLADDER (09/13/16) Family History: States: No Known Family Hx - Social History Hx Tobacco Use: Yes (former smoker) Hx Alcohol Use: No Hx Substance Use: No - Immunization History Hx Tetanus Toxoid Vaccination: No Hx Influenza Vaccination: No Hx Pneumococcal Vaccination: No Review Of Systems Except As Marked, All Systems Reviewed And Found Negative. Constitutional: Positive for: Weakness. Negative for: Fever, Chills Cardiovascular: Negative for: Chest Pain Respiratory: Positive for: Shortness of Breath. Negative for: Cough Gastrointestinal: Positive for: Other ((+) Chronic pelvic pain.). Negative for : Nausea, Vomiting, Diarrhea Genitourinary: Negative for: Dysuria Physical Exam - Physical Exam Appears: Non-toxic, No Acute Distress Skin: Warm, Dry, Other ((+) Well healed midline surgical scar. ) Head: Atraumatic Oral Mucosa: Moist Chest: Symmetrical, No Tenderness Cardiovascular: Rhythm Regular, No Murmur Respiratory: Decreased Breath Sounds (Bilateraly), No Rales, No Wheezing Gastrointestinal/Abdominal: Normal Exam, Soft, No Tenderness, No Guarding, No Rebound Male Genital: Normal Inspection Extremity: Normal ROM, No Swelling Neurological/Psych: Oriented x3, Normal Speech ED Course And Treatment - Laboratory Results Result Diagrams: 08/19/17 13:06 08/19/17 13:06 ECG: Interpreted By Me, Viewed By Me ECG Rhythm: Sinus Rhythm ECG Interpretation: Normal Interpretation Of ECG: Normal intervals. Normal axis. PVC. Nonspecfic T wave changes. Rate From EC (BPM) O2 Sat by Pulse Oximetry: 98 (RA) Pulse Ox Interpretation: Normal - Other Rad CXR X-Ray: Viewed By Me, Read By Radiologist Interpretation: PROCEDURE: CHEST RADIOGRAPH, 1 VIEW. HISTORY: SOB. COMPARISON: 08/04/2017. FINDINGS: LUNGS: Clear. PLEURA: No pneumothorax or pleural fluid seen. CARDIOVASCULAR: Normal. OSSEOUS STRUCTURES: No significant abnormalities. VISUALIZED UPPER ABDOMEN: Normal. OTHER FINDINGS: None. IMPRESSION: No active disease. No acute/significant interval changes. . Please note: No preliminary report/ innterpretation of this examination provided by emergency department personnel. Medical Decision Making Medical Decision Making: PLAN: * CXR * EKG * Troponin * D-Dimer * CBC * CMP * BNP * Urinalysis NOTE: * Prior records were reviewed which shows patient has a lymph node biopsy done on 08/07. Pathology shows Metastatic Urothelial Carcinoma. * Patient is admitted to telemetry under Dr. Denney for weakness and SOB. Disposition Discussed With : Mariana Denney Doctor Will See Patient In The: Hospital Counseled Patient/Family Regarding: Studies Performed, Diagnosis - Disposition Disposition: HOSPITALIZED Disposition Time: 17:15 Condition: FAIR - Clinical Impression Clinical Impression: Shortness of breath - Scribe Statement The provider has reviewed the documentation as recorded by the Scribe Mariel Winters Provider Attestation: All medical record entries made by the Scribe were at my direction and personally dictated by me. I have reviewed the chart and agree that the record accurately reflects my personal performance of the history, physical exam, medical decision making, and the department course for this patient. I have also personally directed, reviewed, and agree with the discharge instructions and disposition.
[2017-08-19 13:30] LABS: BASO # 0.1 K/uL (0.0-0.2); BASO % 0.5 % (0.0-2.0); EOS # 0.1 K/uL (0.0-0.7); EOS % 1.3 % (0.0-4.0); HEMATOCRIT 38.2 % (35.0-51.0); LYMPH % 19.5 % (20.0-40.0); MEAN CELL VOLUME 86.6 fL (80.0-94.0); MEAN CORPUSCULAR HEMOGLOBIN 28.7 pg (27.0-31.0); MEAN CORPUSCULAR HGB CONC 33.2 g/dL (33.0-37.0); MEAN PLATELET VOLUME 7.9 fL (7.2-11.7); MONO # 0.8 K/uL (0.0-0.8); MONO % 7.9 % (0.0-10.0); NRBC % 0.1 % (0.0-2.0); RED CELL DISTRIBUTION WIDTH 14.6 % (11.5-14.5); WHITE BLOOD COUNT 10.2 K/uL (4.8-10.8)
--- NOTE | 2017-08-19 13:33 | RAD ---
PROCEDURE: CHEST RADIOGRAPH, 1 VIEW HISTORY: SOB COMPARISON: 08/04/2017. FINDINGS: LUNGS: Clear. PLEURA: No pneumothorax or pleural fluid seen. CARDIOVASCULAR: Normal. OSSEOUS STRUCTURES: No significant abnormalities. VISUALIZED UPPER ABDOMEN: Normal. OTHER FINDINGS: None. IMPRESSION: No active disease. No acute/significant interval changes. Please note: No preliminary report/ innterpretation of this examination provided by emergency department personnel.
[2017-08-19 13:45] LABS: POTASSIUM 4.2 mmol/L (3.6-5.2)
[2017-08-19 13:47] LABS: BILIRUBIN,TOTAL 0.8 mg/dL (0.2-1.3); TOTAL PROTEIN 8.3 g/dL (6.3-8.3)
[2017-08-19 13:48] LABS: MAGNESIUM 2.6 mg/dL (1.6-2.3)
[2017-08-19 14:00] LABS: TROPONIN I 0.021 ng/mL (0.00-0.120)
[2017-08-19 14:19] LABS: THYROID STIMULATING HORMONE 1.63 mIU/L (0.46-4.68)
--- NOTE | 2017-08-19 16:44 | NM ---
COMPARISON: August 19, 2017. TECHNIQUE: 6.1 mCi technetium 99-m Xe-133 Gas. 3.9 mCI technetium 99-m MAA administered intravenously. FINDINGS: VENTILATION COMPONENT: Heterogeneous ventilation with mild air trapping at the lung bases. PERFUSION COMPONENT: Heterogeneous distribution of radionuclide. No geographic, segmental, lobar abnormalities apparent on the present examination. IMPRESSION: Low probability ventilation perfusion scan for pulmonary embolism.
[2017-08-19] MEDS ORDERED: Morphine 4 MG/ML VIAL IV STA (17:07)
--- NOTE | 2017-08-19 18:22 | CP.PCM.HP ---
<Elayne Ag - Last Filed: 08/19/17 18:48> History of Present Illness - History of Present Illness History of Present Illness: CC: weakness, fatigue, "I can't take care of myself" HPI: Patient is an 89 year old male with a past medical history of bladder cancer, BPH, left urethral stricture, urinary retention, CAD, DM2, HLD, and lumbar herniated discs who presents to the ED complaining of fatigue and weakness. Patient says he has been feeling this way since his nephrectomy but 2 weeks ago he started feeling more weak and tired. He admits to associated SOB that is worse with exertion and at night. Patient has had a decreased appetite and says he dry heaves when he exerts himself, however he does not feel nauseous and does not vomit. He says he cannot take car eof himself anymore and wants help. He says his closet family is his daughter in [place]. Patient was recently admitted for abdominal pain due to urinary retention. Patient is still having some lower abdominal pain but attributes this to his urinary retention. Patient has some pain in his low back radiating to his right thigh which he attributes to herniated discs in his back. Patient denies fever, chills , headache, changes in vision and hearing, sore throat, chest pain, palpitations , cough, nausea, vomiting, diarrhea, blood in stool, dysuria, frequency, leg swelling, and rash. PMD: Dr. Desai Urologist: Dr. Levy Heme/Onc: Dr. 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 [employer]; lives alone, daughter lives in [place] Allergies: Penicillin, unknown reaction Home Meds: Acetaminophen 650 mg PO q6 PRN for pain; Temazepam 30 mg PO qhs PRN for sleep; Tamsulosin 0.4 mg PO daily; Atorvastatin 10 mg PO Present on Admission - Present on Admission Any Indicators Present on Admission: No Review of Systems - Review of Systems All systems: reviewed and no additional remarkable complaints except (as per HPI ) Past Patient History - Infectious Disease Hx of Infectious Diseases: None - Past Medical History & Family History Past Medical History?: Yes - Past Social History Smoking Status: Never Smoked - CARDIAC Hx Hypercholesterolemia: Yes Hx Hypertension: Yes - PULMONARY Hx Respiratory Disorders: No - NEUROLOGICAL Hx Neurological Disorder: No - HEENT Hx HEENT Problems: Yes Hx Cataracts: Yes (surgery right eye) - RENAL Hx Chronic Kidney Disease: Yes - ENDOCRINE/METABOLIC Hx Endocrine Disorders: Yes Hx Diabetes Mellitus Type 2: Yes - HEMATOLOGICAL/ONCOLOGICAL Hx Blood Disorders: No - INTEGUMENTARY Hx Dermatological Problems: No - MUSCULOSKELETAL/RHEUMATOLOGICAL Hx Arthritis: Yes (LBP, HERNIATED DISC) - GASTROINTESTINAL Hx Gall Bladder Disease: Yes - GENITOURINARY/GYNECOLOGICAL Hx Genitourinary Disorders: Yes Hx Bladder Cancer: Yes Hx Hematuria: Yes Hx Prostate Problems: Yes (enlarged prostate, partial prostatectomy) Hx Urinary Tract Infection: Yes - PSYCHIATRIC Hx Substance Use: No - SURGICAL HISTORY Hx Cholecystectomy: Yes Hx Coronary Artery Bypass Graft: Yes (x4) - ANESTHESIA Hx Anesthesia: Yes Hx Anesthesia Reactions: No Hx Malignant Hyperthermia: No Meds Allergies/Adverse Reactions: Allergies Allergy/AdvReac Type Severity Reaction Status Date / Time Penicillins Allergy RASH Verified 08/19/17 12:23 Physical Exam - Constitutional Appears: Non-toxic, No Acute Distress, Cachectic, Chronically Ill - Head Exam Head Exam: ATRAUMATIC, NORMAL INSPECTION - Eye Exam Eye Exam: EOMI, Normal appearance - ENT Exam ENT Exam: Mucous Membranes Moist - Respiratory Exam Respiratory Exam: Clear to Auscultation Bilateral, NORMAL BREATHING PATTERN. absent: Accessory Muscle Use, Rales, Rhonchi, Wheezes - Cardiovascular Exam Cardiovascular Exam: REGULAR RHYTHM, +S1, +S2, Systolic Murmur. absent: Bradycardia, Tachycardia - GI/Abdominal Exam GI & Abdominal Exam: Normal Bowel Sounds, Soft, Tenderness (suprapubic). absent : Distended, Firm, Guarding - Extremities Exam Extremities exam: Positive for: normal inspection, pedal pulses present. Negative for: calf tenderness, pedal edema - Back Exam Back exam: NORMAL INSPECTION - Neurological Exam Neurological exam: Alert - Psychiatric Exam Psychiatric exam: Normal Affect, Normal Mood - Skin Skin Exam: Dry, Intact, Normal Color, Warm Results - Vital Signs Recent Vital Signs: Last Vital Signs Temp 97.6 F 08/19/17 16:24 Pulse 66 08/19/17 17:25 Resp 18 08/19/17 17:25 BP 110/65 08/19/17 17:25 Pulse Ox 98 08/19/17 18:03 - Labs Result Diagrams: 08/19/17 13:06 08/19/17 13:06 Labs: Laboratory Results - last 24 hr 08/19/17 08/19/17 08/19/17 12:34 13:06 13:06 WBC 10.2 RBC 4.41 Hgb 12.7 Hct 38.2 MCV 86.6 MCH 28.7 MCHC 33.2 RDW 14.6 H Plt Count 299 MPV 7.9 Neut % (Auto) 70.8 Lymph % (Auto) 19.5 L [place] % (Auto) 7.9 Eos % (Auto) 1.3 Baso % (Auto) 0.5 Neut # 7.3 H Lymph # 2.0 [place] # 0.8 Eos # 0.1 Baso # 0.1 D-Dimer, Quantitative Sodium 134 Potassium 4.2 Chloride 97 L Carbon Dioxide 25 Anion Gap 17 BUN 41 H Creatinine 1.8 H Est GFR ( Amer) 43 Est GFR (Non-Af Amer) 36 POC Glucose (mg/dL) 146 H Random Glucose 137 H Calcium 9.0 Magnesium 2.6 H Total Bilirubin 0.8 AST 31 ALT 41 Alkaline Phosphatase 78 Troponin I 0.0210 NT-Pro-B Natriuret Pep 435 Total Protein 8.3 Albumin 4.2 Globulin 4.1 H Albumin/Globulin Ratio 1.0 Lipase 48 TSH 3rd Generation 1.63 08/19/17 13:06 WBC RBC Hgb Hct MCV MCH MCHC RDW Plt Count MPV Neut % (Auto) Lymph % (Auto) [place] % (Auto) Eos % (Auto) Baso % (Auto) Neut # Lymph # [place] # Eos # Baso # D-Dimer, Quantitative 414 H Sodium Potassium Chloride Carbon Dioxide Anion Gap BUN Creatinine Est GFR ( Amer) Est GFR (Non-Af Amer) POC Glucose (mg/dL) Random Glucose Calcium Magnesium Total Bilirubin AST ALT Alkaline Phosphatase Troponin I NT-Pro-B Natriuret Pep Total Protein Albumin Globulin Albumin/Globulin Ratio Lipase TSH 3rd Generation Assessment & Plan (1) Weakness generalized Assessment and Plan: * PT/OT eval and treat * nutrition assessment * case management for rehab placement * fall risk protocol Status: Chronic (2) Elevated d-dimer Assessment and Plan: * V/Q scan - low probability for PE * likely due to cancer Status: Acute (3) BPH (benign prostatic hypertrophy) with urinary obstruction Assessment and Plan: * cont home med: Tamsulosin 0.4 mg PO QD * consider lund if needed * consider urology consult * monitor I/Os Status: Chronic (4) Diabetes Assessment and Plan: * Reports history but does not take meds * monitor glucose ACHS Status: Chronic (5) Hypercholesterolemia Assessment and Plan: * Crestor 2.5 mg PO HS Status: Chronic (6) Constipation Assessment and Plan: * Colace 100 mg PRN Status: Acute (7) Prophylactic measure Assessment and Plan: * SCDs * Heparin Q12 * Pepcid 20 mg BID Status: Acute <Madeline Gerber - Last Filed: 08/20/17 14:44> Results - Vital Signs Recent Vital Signs: Last Vital Signs Temp 97.3 F L 08/20/17 11:20 Pulse 65 08/20/17 12:20 Resp 18 08/20/17 12:20 BP 113/61 08/20/17 12:20 Pulse Ox 94 L 08/20/17 12:20 - Labs Result Diagrams: 08/20/17 08:22 08/20/17 08:22 Labs: Laboratory Results - last 24 hr 08/19/17 08/20/17 08/20/17 18:20 06:34 08:22 WBC 9.9 RBC 4.53 Hgb 13.3 Hct 39.7 MCV 87.5 MCH 29.3 MCHC 33.4 RDW 14.8 H Plt Count 313 MPV 7.8 Neut % (Auto) 67.1 Lymph % (Auto) 23.3 [place] % (Auto) 7.2 Eos % (Auto) 1.9 Baso % (Auto) 0.5 Neut # 6.6 Lymph # 2.3 [place] # 0.7 Eos # 0.2 Baso # 0.0 Sodium Potassium Chloride Carbon Dioxide Anion Gap BUN Creatinine Est GFR ( Amer) Est GFR (Non-Af Amer) POC Glucose (mg/dL) 120 H Random Glucose Calcium Total Bilirubin AST ALT Alkaline Phosphatase Total Protein Albumin Globulin Albumin/Globulin Ratio Urine Color Yellow Urine Clarity Clear Urine pH 6.0 Ur Specific [place] 1.018 Urine Protein Negative Urine Glucose (UA) 1+ H Urine Ketones Negative Urine Blood Negative Urine Nitrate Negative Urine Bilirubin Negative Urine Urobilinogen Normal Ur Leukocyte Esterase Trace Urine WBC (Auto) 6 H Urine RBC (Auto) 3 Ur Squamous Epith Cells 1 Urine Bacteria Occ H 08/20/17 08/20/17 08:22 09:29 WBC RBC Hgb Hct MCV MCH MCHC RDW Plt Count MPV Neut % (Auto) Lymph % (Auto) [place] % (Auto) Eos % (Auto) Baso % (Auto) Neut # Lymph # [place] # Eos # Baso # Sodium 134 Potassium 4.5 Chloride 96 L Carbon Dioxide 28 Anion Gap 14 BUN 40 H Creatinine 2.1 H Est GFR ( Amer) 36 Est GFR (Non-Af Amer) 30 POC Glucose (mg/dL) 134 H Random Glucose 112 H Calcium 9.0 Total Bilirubin 1.0 AST 34 ALT 43 Alkaline Phosphatase 85 Total Protein 8.4 H Albumin 4.1 Globulin 4.3 H Albumin/Globulin Ratio 1.0 Urine Color Urine Clarity Urine pH Ur Specific [place] Urine Protein Urine Glucose (UA) Urine Ketones Urine Blood Urine Nitrate Urine Bilirubin Urine Urobilinogen Ur Leukocyte Esterase Urine WBC (Auto) Urine RBC (Auto) Ur Squamous Epith Cells Urine Bacteria Attending/Attestation - Attestation I have personally seen and examined this patient.: Yes I have fully participated in the care of the patient.: Yes I have reviewed all pertinent clinical information: Yes Notes (Text): Patient is an 89 year old male with a past medical history of bladder cancer, BPH, left urethral stricture, urinary retention, CAD, DM2, HLD, and lumbar herniated discs who presents to the ED complaining of fatigue and weakness. He is known to our service .Patient says he has been feeling after he was discharged from here. He couldn't take care of himself.Has lot of pelvic and perineum pain.He stated that his daughter was looking for a place for him.Patient also doesn't want chemotherapy,not want to be kept on machine support and no resuscitation. I spoke to his daughter Mary at [phone].She is concern about his weakness,cancer and pain. She wants him to get hospice care placement Discussed with resident agree with the resident's documentation of assessment and plan..
[2017-08-19 18:31] LABS: RBC URINE 3 /hpf (0-3); URINE BACTERIA OCC (<OCC); URINE BILIRUBIN NEGATIVE (NEGATIVE); URINE BLOOD NEGATIVE (NEGATIVE); URINE COLOR Yellow (YELLOW); URINE GLUCOSE (UA) 1+ mg/dL (Normal); URINE KETONE NEGATIVE (NEGATIVE); URINE LEUKOCYTE ESTERASE TRACE Leu/uL (Negative); URINE PROTEIN NEGATIVE (NEGATIVE); URINE UROBILINOGEN NORMAL mg/dL (0.2-1.0); WBC URINE 6 /hpf (0-5)
[2017-08-19] MEDS ORDERED: HYDROmorphone 1 mg/ml ISec IVP PRN (18:45)
[2017-08-19] MEDS: Rosuvastatin Calcium 2.5 mg Tab PO SCH (22:35)
[2017-08-20 08:39] LABS: BASO % 0.5 % (0.0-2.0); EOS # 0.2 K/uL (0.0-0.7); EOS % 1.9 % (0.0-4.0); HEMATOCRIT 39.7 % (35.0-51.0); LYMPH # 2.3 K/uL (1.0-4.3); LYMPH % 23.3 % (20.0-40.0); MEAN CELL VOLUME 87.5 fL (80.0-94.0); MEAN CORPUSCULAR HEMOGLOBIN 29.3 pg (27.0-31.0); MEAN CORPUSCULAR HGB CONC 33.4 g/dL (33.0-37.0); MEAN PLATELET VOLUME 7.8 fL (7.2-11.7); MONO # 0.7 K/uL (0.0-0.8); MONO % 7.2 % (0.0-10.0); RED CELL DISTRIBUTION WIDTH 14.8 % (11.5-14.5); WHITE BLOOD COUNT 9.9 K/uL (4.8-10.8)
[2017-08-20 08:59] LABS: POTASSIUM 4.5 mmol/L (3.6-5.2)
[2017-08-20 09:01] LABS: TOTAL PROTEIN 8.4 g/dL (6.3-8.3)
[2017-08-20] MEDS ORDERED: Naloxone 0.4 mg/ml Inj (Adult) IVP ONE ×2 (09:11→09:30)
[2017-08-20] MEDS ORDERED: Naloxone 0.4 mg/ml Inj (Adult) IVP STA (09:11)
[2017-08-20] MEDS ORDERED: Naloxone 0.4 mg/ml Inj (Adult) ONE (09:21)
[2017-08-20] MEDS: POLYETHYLENE GLYCOL 3350 17 GM/Dose PACKET PO SCH ×2 (10:56→19:08)
--- NOTE | 2017-08-20 11:00 | PCM.PSYCH ---
Initial Psychiatric Evaluation - Initial Psychiatric Evaluation Type of Admission: Voluntary Legal Status: Capacity Chief Complaint (in patient's own words): "I feel down" History of Present Illness and Precipitating Events: The patient is seen, chart reviewed and case discussed. Consultation was requested for his depression. 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 The patient was diagnosed with bladder cancer and he is on DNR/DNI status and has been refusing chemo. He says "no need, I'm 89." First thing he said was "I can't live alone, I can't go back" and he added that he can barely walk and so there is no way he will be able to live alone anymore. Then he admitted to being depressed "for a long time," and when confronted, he also admitted that he took some Percocet pills last night to kill himself. He is upset that he did not succeed, but at the same time he now contracts for safety and agreed to follow the safety plan where he will call the nurses and ask for help if he feels suicidal again. It is also not clear why he did not take the whole bottle. [employer] checked [facility] and he had filled a rx of #120 oxycodone-acetaminophen tablets (5mg) on 08/14. This is his first percocet rx as per [facility]. He was getting monthly restoril, otherwise. Nevertheless, he was still over sedated this morning and he improved with Narcan. Acetaminophen levels ordered and he is put on one-to-one. Currently he is future oriented as he is asking about group home placement. He reports sleep problems but he is able to sleep with Restoril, has anhedonia, pessimism, low self-esteem and low appetite. He denies manic or psychotic symptoms. However, he admits to feeling anxious. His cognitive functions are grossly intact; oriented 3, attention and memory are age level. Past psych history: Denies past psych and substance use history. No previous suicide attempts Family psych history: Denies Medical history: Multiple problems, please see chart for details. Current Medications: Active Medications Generic Name Dose Route Start Last Admin Trade Name Freq PRN Reason Stop Dose Admin Acetaminophen 650 mg 08/19/17 18:45 Tylenol 325mg Tab PO Q6 PRN Pain, moderate (4-7) Docusate Sodium 100 mg 08/19/17 18:45 08/20/17 10:56 Colace PO 100 mg BID PRN Administration Constipation Escitalopram Oxalate 5 mg 08/20/17 11:00 Lexapro PO DAILY LYNDSAY Famotidine 20 mg 08/20/17 10:00 08/20/17 10:56 Pepcid PO 20 mg BID LYNDSAY Administration Fentanyl 1 patch 08/19/17 19:00 08/19/17 20:00 Duragesic TD 1 patch Q72H LYNDSAY Administration Heparin Sodium (Porcine) 5,000 units 08/19/17 22:00 08/20/17 10:59 Heparin SC 5,000 units Q12 LYNDSAY Administration Hydromorphone HCl 1 mg 08/19/17 18:45 Dilaudid IVP Q4H PRN Pain, severe (8-10) Ondansetron HCl 4 mg 08/19/17 19:00 Zofran Inj IVP DAILY@ONCE PRN Nausea/Vomiting Polyethylene Glycol 17 gm 08/20/17 10:00 08/20/17 10:56 Miralax PO 17 gm BID LYNDSAY Administration Quetiapine Fumarate 25 mg 08/20/17 22:00 Seroquel PO HS LYNDSAY Rosuvastatin Calcium 2.5 mg 08/19/17 22:00 08/19/17 22:35 Crestor PO 2.5 mg HS LYNDSAY Administration Tamsulosin HCl 0.4 mg 08/20/17 10:00 08/20/17 10:56 Flomax PO 0.4 mg DAILY LYNDSAY Administration Temazepam 30 mg 08/19/17 18:53 Restoril PO HS PRN Insomnia Past Psychiatric History - Past Psychiatric History Previous Treatment History: None Pertinent Medical Hx (Current Medical&Sleep Prob, Allergies): Allergies Allergy/AdvReac Type Severity Reaction Status Date / Time Penicillins Allergy RASH Verified 08/19/17 12:23 Atorvastatin [Lipitor] 10 mg PO DIN 05/09/16 Temazepam [Restoril] 30 mg PO HS PRN #0 cap 09/17/16 Tamsulosin [Flomax] 0.4 mg PO DAILY #30 cap 07/16/17 Dexamethasone [Decadron] 1 tab PO DAILY 08/19/17 Oxycodone-Acetaminophen 5-325 1 tab PO Q4 PRN 08/19/17 Review of Systems - Psychiatric Psychiatric: Abnormal Sleep Pattern, Anhedonia, Anxiety, Change in Appetite, Depression, Difficulty Concentrating, Irritability, Suicidal Ideation. absent: Hallucinations, Homicidal Ideation, Paranoia Mental Status Examination - Personal Presentation Personal Presentation: Looks stated age - Affect Affect: Constricted - Motor Activity Motor Activity: Calm - Reliability in Providing Information Reliability in Providing Information: Good - Speech Speech: Organized - Mood Mood: Depressed, Anxious - Formal Thought Process Formal Thought Process: No Impairment - Cognitive Functions Orientation: Person, Place, Situation, Time Sensorium: Alert Attention/Concentration: Attentive Estimate of Intelligence: Average Judgement: Imparied, as evidence by: Poor judgement Memory: Recent intact, as evidence by: Ability to recall events of the day, Remote intact, as evidenced by: Abilit to recall sig. life events - Risk Risk: Diminished functioning - Strength & Assets Inventory Strength & Assets Inventory: Cooperative - Limitations Limitations: Living alone DSM 5 DX - DSM 5 DSM 5 Diagnosis: Major depressive d/o - single, severe, without psychotic feat. Adjustment d/o with anxiety - Recommended/Plan of Treatment Treatment Recommendations and Plan of Treatment: Depression/suicidal thoughts: - Lexapro 5 mg started - Seroquel 25 mg HS for insomnia and irritability - Slowly taper of restoril - Support and psychoed - 1:1 for suicidality Anxiety: - Ativan 0.5 mg BID x3 days - Lexapro should help - Support and relaxation techniques 33 min
--- NOTE | 2017-08-20 11:51 | CP.PCM.PN ---
<Elayne Ag - Last Filed: 08/20/17 15:04> Subjective - Date & Time of Evaluation Date of Evaluation: 08/20/17 Time of Evaluation: 08:00 - Subjective Subjective: Medicine Note for Dr. Gerber Patient seen and examined at bedside this morning at 0650. Patient was doing well at that time and said he was no longer short of breath on the 2L of oxygen. Patient denied chest pain, SOB, nausea, vomiting, diarrhea, leg pain, leg swelling. Patient seen again later at approximately 10:00 after nurse paged and described the patient as lethargic. Nurse reports finding a bottle of oxycodone the patient brought from home with 49 pills left in it. I examined the patient at bedside and found him to be significantly more lethargic than before and not answering my questions fully. Patient had pinpoint pupils but was breathing well and O2 sat was 97% on 2L. Narcan 0.4 was given and patient became more alert after a minute or two. Vitals were checked and stable. When patient was more alert I asked why he took the oxycodone and he replied "I just wanted to end it all". 1-to-[address] Acosta for suicide attempt. Order was put in to call poison control. I tried calling myself with the number provided by RECEIVABLE CLERK however I did not get an answer. Objective - Vital Signs/Intake and Output Vital Signs (last 24 hours): Temp Pulse Resp BP Pulse Ox 98.0 F 80 20 148/82 95 08/19/17 23:00 08/20/17 09:35 08/20/17 09:35 08/20/17 09:35 08/20/17 09:35 Intake and Output: 08/20/17 08/20/17 06:59 18:59 Intake Total 200 Balance 200 - Medications Medications: Current Medications Acetaminophen (Tylenol 325mg Tab) 650 mg PO Q6 PRN PRN Reason: Pain, moderate (4-7) Docusate Sodium (Colace) 100 mg PO BID PRN PRN Reason: Constipation Last Admin: 08/20/17 10:56 Dose: 100 mg Escitalopram Oxalate (Lexapro) 5 mg PO DAILY [facility] Famotidine (Pepcid) 20 mg PO BID [facility] Last Admin: 08/20/17 10:56 Dose: 20 mg Fentanyl (Duragesic) 1 patch TD Q72H [facility] Last Admin: 08/19/17 20:00 Dose: 1 patch Heparin Sodium (Porcine) (Heparin) 5,000 units SC Q12 [facility] Last Admin: 08/20/17 10:59 Dose: 5,000 units Hydromorphone HCl (Dilaudid) 1 mg IVP Q4H PRN PRN Reason: Pain, severe (8-10) Lorazepam (Ativan) 0.5 mg PO BID [facility] Stop: 08/23/17 18:01 Ondansetron HCl (Zofran Inj) 4 mg IVP DAILY@ONCE PRN PRN Reason: Nausea/Vomiting Polyethylene Glycol (Miralax) 17 gm PO BID [facility] Last Admin: 08/20/17 10:56 Dose: 17 gm Quetiapine Fumarate (Seroquel) 25 mg PO HS [facility] Rosuvastatin Calcium (Crestor) 2.5 mg PO HS [facility] Last Admin: 08/19/17 22:35 Dose: 2.5 mg Tamsulosin HCl (Flomax) 0.4 mg PO DAILY [facility] Last Admin: 08/20/17 10:56 Dose: 0.4 mg Temazepam (Restoril) 30 mg PO HS PRN PRN Reason: Insomnia - Labs Labs: 08/20/17 08:22 08/20/17 08:22 - Constitutional Appears: Confused - Head Exam Head Exam: NORMAL INSPECTION - Eye Exam Eye Exam: EOMI Pupil Exam: Miosis (b/l) - ENT Exam ENT Exam: Mucous Membranes Moist - Respiratory Exam Respiratory Exam: Clear to Ausculation Bilateral, NORMAL BREATHING PATTERN. absent: Accessory Muscle Use, Rales, Rhonchi, Wheezes, Respiratory Distress - Cardiovascular Exam Cardiovascular Exam: REGULAR RHYTHM, +S1, +S2. absent: Bradycardia, Tachycardia - GI/Abdominal Exam GI & Abdominal Exam: Soft, Normal Bowel Sounds. absent: Tenderness - Extremities Exam Extremities Exam: absent: Calf Tenderness, Pedal Edema - Neurological Exam Neurological Exam: Altered, Awake - Psychiatric Exam Psychiatric exam: Depressed, Suicidal Ideation. absent: Homicidal Ideation - Skin Skin Exam: Dry, Intact, Normal Color, Warm Assessment and Plan (1) Weakness generalized Status: Chronic (2) Elevated d-dimer Status: Acute (3) BPH (benign prostatic hypertrophy) with urinary obstruction Status: Chronic (4) Diabetes Status: Chronic (5) Hypercholesterolemia Status: Chronic (6) Constipation Status: Acute (7) Prophylactic measure Status: Acute (8) Depression Assessment & Plan: Status: Chronic (9) Suicide attempt Status: Acute - Assessment and Plan (Free Text) Plan: (1) Weakness generalized Assessment and Plan: * PT/OT eval and treat * nutrition assessment * case management for rehab placement * fall risk protocol Status: Chronic (2) Elevated d-dimer Assessment and Plan: * V/Q scan - low probability for PE * likely due to cancer Status: Acute (3) BPH (benign prostatic hypertrophy) with urinary obstruction Assessment and Plan: * cont home med: Tamsulosin 0.4 mg PO QD * consider lund if needed * consider urology consult * monitor I/Os Status: Chronic (4) Diabetes Assessment and Plan: * Reports history but does not take meds * monitor glucose ACHS Status: Chronic (5) Hypercholesterolemia Assessment and Plan: * Crestor 2.5 mg PO HS Status: Chronic (6) Constipation Assessment and Plan: * Colace 100 mg PRN Status: Acute (7) Depression Assessment & Plan: * Psych (Dr. Acosta) consulted - recs appreciated * Ativan 0.5 mg PO BID * Seroquel 25 mg PO HS Status: Chronic (8) Suicide attempt Assessment & Plan: * Overdose on oxycodone of unknown amount * Narcan 0.4 mg IV Once given * f/u acetominophen level and LFTs * Acetominophen levels rise at 4 hours and LFTs begin at 24h and peak at 72hr * One-to-one/Avasys ordered * Psych consult (Dr. Acosta) - recs appreciated * Ativan 0.5 mg PO BID * Seroquel 25 mg PO HS * Ordered to call poison control * I personally called with no answer Status: Acute (9) Prophylactic measure Assessment and Plan: * SCDs * Heparin Q12 * Pepcid 20 mg BID Status: Acute <Maedline Gerber - Last Filed: 08/20/17 18:15> Objective - Vital Signs/Intake and Output Vital Signs (last 24 hours): Temp Pulse Resp BP Pulse Ox 97.5 F L 73 20 132/72 96 08/20/17 16:00 08/20/17 16:00 08/20/17 16:00 08/20/17 16:00 08/20/17 16:00 Intake and Output: 08/20/17 08/20/17 06:59 18:59 Intake Total 200 Balance 200 - Medications Medications: Current Medications Acetaminophen (Tylenol 325mg Tab) 650 mg PO Q6 PRN PRN Reason: Pain, moderate (4-7) Docusate Sodium (Colace) 100 mg PO BID PRN PRN Reason: Constipation Last Admin: 08/20/17 10:56 Dose: 100 mg Escitalopram Oxalate (Lexapro) 5 mg PO DAILY [facility] Last Admin: 08/20/17 13:00 Dose: 5 mg Famotidine (Pepcid) 20 mg PO DAILY [facility] Fentanyl (Duragesic) 1 patch TD Q72H [facility] Last Admin: 08/19/17 20:00 Dose: 1 patch Heparin Sodium (Porcine) (Heparin) 5,000 units SC Q12 [facility] Last Admin: 08/20/17 10:59 Dose: 5,000 units Hydromorphone HCl (Dilaudid) 1 mg IVP Q4H PRN PRN Reason: Pain, severe (8-10) Lorazepam (Ativan) 0.5 mg PO BID [facility] Stop: 08/23/17 18:01 Ondansetron HCl (Zofran Inj) 4 mg IVP DAILY@ONCE PRN PRN Reason: Nausea/Vomiting Polyethylene Glycol (Miralax) 17 gm PO BID [facility] Last Admin: 08/20/17 10:56 Dose: 17 gm Quetiapine Fumarate (Seroquel) 25 mg PO HS [facility] Rosuvastatin Calcium (Crestor) 2.5 mg PO HS [facility] Last Admin: 08/19/17 22:35 Dose: 2.5 mg Tamsulosin HCl (Flomax) 0.4 mg PO DAILY [facility] Last Admin: 08/20/17 10:56 Dose: 0.4 mg Temazepam (Restoril) 30 mg PO HS PRN PRN Reason: Insomnia - Labs Labs: 08/20/17 08:22 08/20/17 08:22 Attending/Attestation - Attestation I have personally seen and examined this patient.: Yes I have fully participated in the care of the patient.: Yes I have reviewed all pertinent clinical information, including history, physical exam and plan: Yes Notes (Text): This is a 89 year old male with a past medical history of bladder cancer, BPH, left urethral stricture, urinary retention, CAD, DM2, HLD, and lumbar herniated discs who presents to the ED for weakness,pelvic pain and unable to take care of himself.Patient was admitted yesterday.I spoke to his oncologist.Patient was refusing palliative chemotherapy.Patient wants comfort care only.He stated that he is old for treatment. This morning he overdosed on oxycodone which he brought from home.Psychiatry consult was requested for suicidal attempt and depression patient was seen and examined this morning agree with the resident's documentation of assessment and plan.
[2017-08-20 20:43] LABS: ALB/GLOB RATIO 1.3 (1.0-2.1); BILIRUBIN,DIRECT 0.4 mg/dL (0.0-0.4); TOTAL PROTEIN 7.4 g/dL (6.3-8.3)
[2017-08-20] MEDS: Rosuvastatin Calcium 2.5 mg Tab PO SCH (21:24)
--- NOTE | 2017-08-20 23:48 | CARD ---
APPROVED REPORT EKG Measurement Heart [id number] <Conclusion> Sinus rhythm with occasional premature ventricular complexes Otherwise normal ECG
--- NOTE | 2017-08-21 09:23 | CP.PCM.PN ---
<Elayne Ag - Last Filed: 08/21/17 16:34> Subjective - Date & Time of Evaluation Date of Evaluation: 08/21/17 Time of Evaluation: 09:19 - Subjective Subjective: Medicine note for Dr. Gerber Patient seen and examined at bedside. Patient resting comfortably in bed. Patient is complaining of some mild nausea and says he has not had a BM since he got here. He also feels like his mouth is dry so I gave him some water to drink. Patient denies fever, chills, chest pain, SOB, vomiting, diarrhea, leg pain, leg swelling. Objective - Vital Signs/Intake and Output Vital Signs (last 24 hours): Temp Pulse Resp BP Pulse Ox 97.7 F 76 18 125/70 95 08/21/17 07:25 08/21/17 08:47 08/21/17 07:25 08/21/17 07:25 08/21/17 07:25 Intake and Output: 08/21/17 08/21/17 06:59 18:59 Intake Total 100 Balance 100 - Medications Medications: Current Medications Acetaminophen (Tylenol 325mg Tab) 650 mg PO Q6 PRN PRN Reason: Pain, moderate (4-7) Docusate Sodium (Colace) 100 mg PO BID PRN PRN Reason: Constipation Last Admin: 08/20/17 19:08 Dose: 100 mg Escitalopram Oxalate (Lexapro) 5 mg PO DAILY [facility] Last Admin: 08/20/17 13:00 Dose: 5 mg Famotidine (Pepcid) 20 mg PO DAILY [facility] Last Admin: 08/20/17 19:00 Dose: 20 mg Fentanyl (Duragesic) 1 patch TD Q72H [facility] Last Admin: 08/19/17 20:00 Dose: 1 patch Heparin Sodium (Porcine) (Heparin) 5,000 units SC Q12 [facility] Last Admin: 08/20/17 21:24 Dose: 5,000 units Hydromorphone HCl (Dilaudid) 1 mg IVP Q4H PRN PRN Reason: Pain, severe (8-10) Lorazepam (Ativan) 0.5 mg PO BID [facility] Stop: 08/23/17 18:01 Last Admin: 08/20/17 19:08 Dose: 0.5 mg Ondansetron HCl (Zofran Inj) 4 mg IVP DAILY@ONCE PRN PRN Reason: Nausea/Vomiting Polyethylene Glycol (Miralax) 17 gm PO BID [facility] Last Admin: 08/20/17 19:08 Dose: 17 gm Quetiapine Fumarate (Seroquel) 25 mg PO HS [facility] Last Admin: 08/20/17 21:24 Dose: 25 mg Rosuvastatin Calcium (Crestor) 2.5 mg PO HS [facility] Last Admin: 08/20/17 21:24 Dose: 2.5 mg Tamsulosin HCl (Flomax) 0.4 mg PO DAILY [facility] Last Admin: 08/20/17 10:56 Dose: 0.4 mg Temazepam (Restoril) 30 mg PO HS PRN PRN Reason: Insomnia - Labs Labs: 08/20/17 08:22 08/20/17 08:22 - Constitutional Appears: Non-toxic, No Acute Distress - Head Exam Head Exam: NORMAL INSPECTION - Eye Exam Eye Exam: EOMI, Normal appearance - ENT Exam ENT Exam: Mucous Membranes Dry - Respiratory Exam Respiratory Exam: Clear to Ausculation Bilateral, NORMAL BREATHING PATTERN. absent: Accessory Muscle Use, Rales, Rhonchi, Wheezes, Respiratory Distress - Cardiovascular Exam Cardiovascular Exam: REGULAR RHYTHM, +S1, +S2, Murmur. absent: Bradycardia - GI/Abdominal Exam GI & Abdominal Exam: Soft, Tenderness (Lower quadrants b/l ), Normal Bowel Sounds. absent: Distended, Guarding - Extremities Exam Extremities Exam: Normal Inspection. absent: Calf Tenderness, Pedal Edema - Neurological Exam Neurological Exam: Alert, Awake - Psychiatric Exam Psychiatric exam: Depressed, Normal Affect - Skin Skin Exam: Dry, Intact, Normal Color, Warm Assessment and Plan (1) Weakness generalized Status: Chronic (2) Elevated d-dimer Status: Acute (3) BPH (benign prostatic hypertrophy) with urinary obstruction Status: Chronic (4) Diabetes Status: Chronic (5) Hypercholesterolemia Status: Chronic (6) Constipation Status: Acute (7) Prophylactic measure Status: Acute (8) Depression Status: Chronic (9) Suicide attempt Status: Acute - Assessment and Plan (Free Text) Plan: (1) Weakness generalized Assessment and Plan: * PT/OT eval and treat * nutrition assessment * case management for rehab placement * fall risk protocol * Blood cultures (08/19): negative x24h Status: Chronic (2) Elevated d-dimer Assessment and Plan: * V/Q scan - low probability for PE * likely due to cancer Status: Acute (3) BPH (benign prostatic hypertrophy) with urinary obstruction Assessment and Plan: * cont home med: Tamsulosin 0.4 mg PO QD * Fentanyl patch for pain control * Dilaudid 2 mg Q4 PRN pain * f/u Bladder scan * consider urology consult if retaining urine for [facility] placement * monitor I/Os Status: Chronic (4) Diabetes Assessment and Plan: * Reports history but does not take meds * monitor glucose ACHS Status: Chronic (5) Hypercholesterolemia Assessment and Plan: * Crestor 2.5 mg PO HS Status: Chronic (6) Constipation Assessment and Plan: * Colace 100 mg PRN changed to LYNDSAY (08/21) * Miralax LYNDSAY Status: Acute (7) Depression Assessment & Plan: * Psych (Dr. Acosta) consulted - recs appreciated * Ativan 0.5 mg PO BID * Seroquel 25 mg PO HS Status: Chronic (8) Suicide attempt Assessment & Plan: * Overdose on oxycodone of unknown amount * Narcan 0.4 mg IV Once given * 08/20 @ 20:00 Acetominophen level: <10, LFTs: 34/39, TBili: 1.0, Direct Bili: 0.4 * Acetominophen levels rise at 4 hours and LFTs begin at 24h and peak at 72hr * Monitor LFTs * One-to-one/Avasys ordered * Psych consult (Dr. Acosta) - recs appreciated * Ativan 0.5 mg PO BID * Seroquel 25 mg PO HS * Ordered to call poison control * I personally called with no answer Status: Acute (9) Prophylactic measure Assessment and Plan: * SCDs * Heparin Q12 * Pepcid 20 mg BID * Zofran PRN Status: Acute Discussed with Dr. Zabrina Ag <Madeline Gerber - Last Filed: 08/21/17 17:17> Objective - Vital Signs/Intake and Output Vital Signs (last 24 hours): Temp Pulse Resp BP Pulse Ox 97.6 F 73 18 138/70 92 L 08/21/17 15:40 08/21/17 15:40 08/21/17 15:40 08/21/17 15:40 08/21/17 15:40 Intake and Output: 08/21/17 08/21/17 06:59 18:59 Intake Total 100 Output Total 0 Balance 100 0 - Medications Medications: Current Medications Acetaminophen (Tylenol 325mg Tab) 650 mg PO Q6 PRN PRN Reason: Pain, moderate (4-7) Docusate Sodium (Colace) 100 mg PO BID [facility] Last Admin: 08/21/17 11:21 Dose: 100 mg Escitalopram Oxalate (Lexapro) 5 mg PO DAILY [facility] Last Admin: 08/21/17 09:48 Dose: 5 mg Famotidine (Pepcid) 20 mg PO DAILY [facility] Last Admin: 08/20/17 19:00 Dose: 20 mg Fentanyl (Duragesic) 1 patch TD Q72H [facility] Last Admin: 08/19/17 20:00 Dose: 1 patch Heparin Sodium (Porcine) (Heparin) 5,000 units SC Q12 [facility] Last Admin: 08/21/17 09:48 Dose: 5,000 units Hydromorphone HCl (Dilaudid) 2 mg IVP Q4H PRN PRN Reason: Pain, severe (8-10) Lorazepam (Ativan) 0.5 mg PO BID [facility] Stop: 08/23/17 18:01 Last Admin: 08/21/17 09:49 Dose: 0.5 mg Ondansetron HCl (Zofran Inj) 4 mg IVP DAILY@ONCE PRN PRN Reason: Nausea/Vomiting Polyethylene Glycol (Miralax) 17 gm PO BID [facility] Last Admin: 08/21/17 09:48 Dose: 17 gm Quetiapine Fumarate (Seroquel) 25 mg PO HS [facility] Last Admin: 08/20/17 21:24 Dose: 25 mg Rosuvastatin Calcium (Crestor) 2.5 mg PO HS [facility] Last Admin: 08/20/17 21:24 Dose: 2.5 mg Tamsulosin HCl (Flomax) 0.4 mg PO DAILY [facility] Last Admin: 08/21/17 09:48 Dose: 0.4 mg Temazepam (Restoril) 30 mg PO HS PRN PRN Reason: Insomnia - Labs Labs: 08/21/17 11:44 08/21/17 11:44 Attending/Attestation - Attestation I have personally seen and examined this patient.: Yes I have fully participated in the care of the patient.: Yes I have reviewed all pertinent clinical information, including history, physical exam and plan: Yes Notes (Text): Seen and examined today.Lying on bed,no distress,c/o severe pelvic pain Discussed with resident.Agree with documentation of assessment and plan. we will increase his pain meds.Dilaudid 2mg PRN and continue Fantanyl patch. Palliative care/DNR and DNI 08/21/17 17:12
[2017-08-21] MEDS: POLYETHYLENE GLYCOL 3350 17 GM/Dose PACKET PO SCH ×2 (09:48→17:22)
[2017-08-21 11:52] LABS: BASO # 0.1 K/uL (0.0-0.2); BASO % 0.6 % (0.0-2.0); EOS # 0.1 K/uL (0.0-0.7); EOS % 0.9 % (0.0-4.0); HEMATOCRIT 39.3 % (35.0-51.0); LYMPH # 1.3 K/uL (1.0-4.3); LYMPH % 12.7 % (20.0-40.0); MEAN CELL VOLUME 87.2 fL (80.0-94.0); MEAN CORPUSCULAR HEMOGLOBIN 29.6 pg (27.0-31.0); MEAN CORPUSCULAR HGB CONC 33.9 g/dL (33.0-37.0); MEAN PLATELET VOLUME 8.3 fL (7.2-11.7); MONO # 0.5 K/uL (0.0-0.8); MONO % 4.8 % (0.0-10.0); NRBC % 0.1 % (0.0-2.0); RED CELL DISTRIBUTION WIDTH 14.5 % (11.5-14.5); WHITE BLOOD COUNT 10.4 K/uL (4.8-10.8)
[2017-08-21 12:11] LABS: POTASSIUM 4.4 mmol/L (3.6-5.2)
[2017-08-21 12:13] LABS: ALB/GLOB RATIO 1.3 (1.0-2.1); BILIRUBIN,TOTAL 1.1 mg/dL (0.2-1.3); TOTAL PROTEIN 7.5 g/dL (6.3-8.3)
[2017-08-21 12:14] LABS: CALCIUM 8.8 mg/dl (8.6-10.4)
--- NOTE | 2017-08-21 12:48 | PCM.PYCHPN ---
Psychiatric Progress Note - Psychiatric Progress Note Patient seen today, length of contact: 16 min Patient Chief Complaint: "I have bad pain" Problems Identified/Issues Discussed: The pt is seen, chart reviewed and case discussed He c/o lower abdominal pain Looks very uncomfortable and in agony - staff made aware Still has SI and depressive sxs but no plan/intention Support given Medication Change: No Medical Record Reviewed: Yes Mental Status Examination - Cognitive Function Orientation: Person, Place, Situation, Time Memory: Impaired Attention: Poor Concentration: Poor Association: WNL Fund of Knowledge: WNL - Mood Mood: Depressed, Anxious - Affect Affect: Constricted - Speech Speech: Appropriate - Formal Thought Process Formal Thought Process: No Impairment - Suicidal Ideation Suicidal Ideation: Yes Plan: No plans or intentions - Homicidal Ideation Homicidal Ideation: No Goal/Treatment Plan - Goal/Treatment Plan Progress Toward Problem(s) and Goals/Treatment Plan: Depression/suicidal thoughts: - Lexapro 5 mg started - Seroquel 25 mg HS for insomnia and irritability - Slowly taper of restoril - Support and psychoed - 1:1 for suicidality Anxiety: - Ativan 0.5 mg BID x3 days - Lexapro should help - Support and relaxation techniques 33 min
[2017-08-21] MEDS: Rosuvastatin Calcium 2.5 mg Tab PO SCH (21:57)
[2017-08-22 01:14] VITALS: RESP 20
[2017-08-22] MEDS: HYDROmorphone 1 mg/ml ISec IVP PRN ×2 (08:20→14:03)
[2017-08-22 08:21] LABS: BASO % 0.5 % (0.0-2.0); EOS # 0.1 K/uL (0.0-0.7); EOS % 0.9 % (0.0-4.0); HEMATOCRIT 41.3 % (35.0-51.0); LYMPH # 1.3 K/uL (1.0-4.3); LYMPH % 13.6 % (20.0-40.0); MEAN CELL VOLUME 87.1 fL (80.0-94.0); MEAN CORPUSCULAR HEMOGLOBIN 28.9 pg (27.0-31.0); MEAN CORPUSCULAR HGB CONC 33.2 g/dL (33.0-37.0); MEAN PLATELET VOLUME 8.1 fL (7.2-11.7); MONO # 0.6 K/uL (0.0-0.8); MONO % 6.4 % (0.0-10.0); NRBC % 0.1 % (0.0-2.0); RED CELL DISTRIBUTION WIDTH 14.6 % (11.5-14.5); WHITE BLOOD COUNT 9.4 K/uL (4.8-10.8)
[2017-08-22] MEDS ORDERED: Influenza Vaccine 60 mcg/0.5 mL SYR (4YR UP) IM ONE (10:00)
[2017-08-22] MEDS: POLYETHYLENE GLYCOL 3350 17 GM/Dose PACKET PO SCH ×2 (10:08→17:40)
[2017-08-22 12:39] LABS: POTASSIUM 4.4 mmol/L (3.6-5.2)
[2017-08-22 12:41] LABS: BILIRUBIN,TOTAL 1.4 mg/dL (0.2-1.3)
[2017-08-22 12:42] LABS: ALB/GLOB RATIO 1.2 (1.0-2.1); TOTAL PROTEIN 7.7 g/dL (6.3-8.3)
--- NOTE | 2017-08-22 12:55 | PCM.PYCHPN ---
Psychiatric Progress Note - Psychiatric Progress Note Patient seen today, length of contact: 17 min Patient Chief Complaint: "I feel better" Problems Identified/Issues Discussed: The pt is seen, chart reviewed and case discussed with his nurse Not suicidal but still pessimistic and depressed However, he is less irate, less intense and more open to discussion today. Likely b/c his pain is also better controlled now He is still not interested in hospice Please have palliative Care see him again 1:1 can be d/c'ed if he stays not suicidal 24 hrs, until tomorrow AM and continues to agree with safety plan/contracts for safety Medication Change: No Medical Record Reviewed: Yes Mental Status Examination - Cognitive Function Orientation: Person, Place, Situation, Time Memory: Impaired Attention: Poor Concentration: Poor Association: WNL Fund of Knowledge: WNL - Mood Mood: Depressed, Anxious - Affect Affect: Constricted - Speech Speech: Appropriate - Formal Thought Process Formal Thought Process: No Impairment - Suicidal Ideation Suicidal Ideation: No - Homicidal Ideation Homicidal Ideation: No Goal/Treatment Plan - Goal/Treatment Plan Need for Continued Stay: Other (medical) Progress Toward Problem(s) and Goals/Treatment Plan: Depression/suicidal thoughts: - Lexapro increased to 10 mg as of tomorrow - Seroquel 25 mg HS for insomnia and irritability - Slowly taper of restoril - Support and psychoed - 1:1 for suicidality one more day Anxiety: - Ativan 0.5 mg BID x3 days - Lexapro should help - Support and relaxation techniques
--- NOTE | 2017-08-22 14:45 | CP.PCM.PN ---
<Elayne Ag - Last Filed: 08/22/17 14:47> Subjective - Date & Time of Evaluation Date of Evaluation: 08/22/17 Time of Evaluation: 07:15 - Subjective Subjective: Medicine note for Dr. Gerber Patient seen and examined at bedside. Patient resting comfortably in bed. Patient is tired this morning and does not want to stay awake to answer my questions. I came back later in the day and he was in a lot of pain and asking for pain meds. When asked about his pain he points to the suprapubic area. Patient denies fever, chills, chest pain, SOB, vomiting, diarrhea, leg pain, leg swelling. Objective - Vital Signs/Intake and Output Vital Signs (last 24 hours): Temp Pulse Resp BP Pulse Ox 98.3 F 73 20 115/73 93 L 08/21/17 23:09 08/21/17 23:09 08/21/17 23:09 08/21/17 23:09 08/21/17 23:09 Intake and Output: 08/22/17 08/22/17 06:59 18:59 Intake Total 120 Balance 120 - Medications Medications: Current Medications Acetaminophen (Tylenol 325mg Tab) 650 mg PO Q6 PRN PRN Reason: Pain, moderate (4-7) Docusate Sodium (Colace) 100 mg PO BID [facility] Last Admin: 08/22/17 10:08 Dose: 100 mg Escitalopram Oxalate (Lexapro) 10 mg PO DAILY [facility] Famotidine (Pepcid) 20 mg PO DAILY [facility] Last Admin: 08/22/17 10:09 Dose: 20 mg Fentanyl (Duragesic) 1 patch TD Q72H [facility] Last Admin: 08/19/17 20:00 Dose: 1 patch Heparin Sodium (Porcine) (Heparin) 5,000 units SC Q12 [facility] Last Admin: 08/22/17 10:09 Dose: 5,000 units Hydromorphone HCl (Dilaudid) 2 mg IVP Q4H [facility] Lorazepam (Ativan) 0.5 mg PO BID [facility] Stop: 08/23/17 18:01 Last Admin: 08/22/17 10:09 Dose: 0.5 mg Ondansetron HCl (Zofran Inj) 4 mg IVP DAILY@ONCE PRN PRN Reason: Nausea/Vomiting Polyethylene Glycol (Miralax) 17 gm PO BID [facility] Last Admin: 08/22/17 10:08 Dose: 17 gm Quetiapine Fumarate (Seroquel) 25 mg PO HS [facility] Last Admin: 08/21/17 21:57 Dose: 25 mg Rosuvastatin Calcium (Crestor) 2.5 mg PO HS [facility] Last Admin: 08/21/17 21:57 Dose: 2.5 mg Tamsulosin HCl (Flomax) 0.4 mg PO DAILY [facility] Last Admin: 08/21/17 09:48 Dose: 0.4 mg Temazepam (Restoril) 30 mg PO HS PRN PRN Reason: Insomnia - Labs Labs: 08/22/17 08:08 08/22/17 11:39 - Additional Findings Additional findings: - Constitutional Appears: Non-toxic, No Acute Distress - Head Exam Head Exam: NORMAL INSPECTION - Eye Exam Eye Exam: EOMI, Normal appearance - ENT Exam ENT Exam: Mucous Membranes Dry - Respiratory Exam Respiratory Exam: Clear to Ausculation Bilateral, NORMAL BREATHING PATTERN. absent: Accessory Muscle Use, Rales, Rhonchi, Wheezes, Respiratory Distress - Cardiovascular Exam Cardiovascular Exam: REGULAR RHYTHM, +S1, +S2, Murmur. absent: Bradycardia - GI/Abdominal Exam GI & Abdominal Exam: Soft, Tenderness (suprapubic), Normal Bowel Sounds. absent : Distended, Guarding - Extremities Exam Extremities Exam: Normal Inspection. absent: Calf Tenderness, Pedal Edema - Neurological Exam Neurological Exam: Alert, Awake - Psychiatric Exam Psychiatric exam: Depressed, Normal Affect - Skin Skin Exam: Dry, Intact, Normal Color, Warm Assessment and Plan (1) Weakness generalized Status: Chronic (2) Elevated d-dimer Status: Acute (3) BPH (benign prostatic hypertrophy) with urinary obstruction Status: Chronic (4) Diabetes Status: Chronic (5) Hypercholesterolemia Status: Chronic (6) Constipation Status: Acute (7) Prophylactic measure Status: Acute (8) Depression Status: Chronic (9) Suicide attempt Status: Acute (10) Hx of bladder cancer Status: Chronic - Assessment and Plan (Free Text) Plan: Weakness generalized Assessment and Plan: * PT/OT eval and treat * nutrition assessment * case management for rehab placement * fall risk protocol * Blood cultures (08/19): negative x24h Status: Chronic Elevated d-dimer Assessment and Plan: * V/Q scan - low probability for PE * likely due to cancer Status: Acute BPH (benign prostatic hypertrophy) with urinary obstruction Assessment and Plan: * cont home med: Tamsulosin 0.4 mg PO QD * Fentanyl patch for pain control * Dilaudid 2 mg Q4 PRN pain - changed to [facility] on 08/22 * Bladder scan - 395 cc residual * Urology consult ([facility]) - recs appreciated * Will need Lew * monitor I/Os Status: Chronic Hx of bladder cancer Assessment and Plan: * Hospice consult * Daughter (Mary) would like inpatient hospice Status: Chronic Diabetes Assessment and Plan: * Reports history but does not take meds * monitor glucose ACHS Status: Chronic Hypercholesterolemia Assessment and Plan: * Crestor 2.5 mg PO HS Status: Chronic Constipation Assessment and Plan: * Colace 100 mg PRN changed to [facility] (08/21) * Miralax [facility] Status: Acute Depression Assessment & Plan: * Psych (Dr. Acosta) consulted - recs appreciated * Ativan 0.5 mg PO BID * Seroquel 25 mg PO HS Status: Chronic Suicide attempt Assessment & Plan: * Overdose on oxycodone of unknown amount * Narcan 0.4 mg IV Once given * 08/20 @ 20:00 Acetominophen level: <10, LFTs: 34/39, TBili: 1.0, Direct Bili: 0.4 * Acetominophen levels rise at 4 hours and LFTs begin at 24h and peak at 72hr * Monitor LFTs * One-to-one/Avasys ordered * Psych consult (Dr. Acosta) - recs appreciated * Ativan 0.5 mg PO BID * Seroquel 25 mg PO HS * Ordered to call poison control * I personally called with no answer Status: Acute Prophylactic measure Assessment and Plan: * SCDs * Heparin Q12 * Pepcid 20 mg BID * Zofran PRN Status: Acute Discussed with Dr. Zabrina Ag <Madeline Gerber - Last Filed: 08/22/17 17:48> Objective - Vital Signs/Intake and Output Vital Signs (last 24 hours): Temp Pulse Resp BP Pulse Ox 97.8 F 76 20 145/77 95 08/22/17 15:41 08/22/17 15:41 08/22/17 15:41 08/22/17 15:41 08/22/17 15:41 Intake and Output: 08/22/17 08/22/17 06:59 18:59 Intake Total 120 Balance 120 - Medications Medications: Current Medications Acetaminophen (Tylenol 325mg Tab) 650 mg PO Q6 PRN PRN Reason: Pain, moderate (4-7) Docusate Sodium (Colace) 100 mg PO BID [facility] Last Admin: 08/22/17 10:08 Dose: 100 mg Escitalopram Oxalate (Lexapro) 10 mg PO DAILY [facility] Famotidine (Pepcid) 20 mg PO DAILY [facility] Last Admin: 08/22/17 10:09 Dose: 20 mg Fentanyl (Duragesic) 1 patch TD Q72H [facility] Last Admin: 08/19/17 20:00 Dose: 1 patch Heparin Sodium (Porcine) (Heparin) 5,000 units SC Q12 [facility] Last Admin: 08/22/17 10:09 Dose: 5,000 units Hydromorphone HCl (Dilaudid) 2 mg IVP Q4H [facility] Lorazepam (Ativan) 0.5 mg PO BID [facility] Stop: 08/23/17 18:01 Last Admin: 08/22/17 10:09 Dose: 0.5 mg Ondansetron HCl (Zofran Inj) 4 mg IVP DAILY@ONCE PRN PRN Reason: Nausea/Vomiting Polyethylene Glycol (Miralax) 17 gm PO BID [facility] Last Admin: 08/22/17 10:08 Dose: 17 gm Quetiapine Fumarate (Seroquel) 25 mg PO HS [facility] Last Admin: 08/21/17 21:57 Dose: 25 mg Rosuvastatin Calcium (Crestor) 2.5 mg PO HS [facility] Last Admin: 08/21/17 21:57 Dose: 2.5 mg Tamsulosin HCl (Flomax) 0.4 mg PO DAILY [facility] Last Admin: 08/21/17 09:48 Dose: 0.4 mg Temazepam (Restoril) 30 mg PO HS PRN PRN Reason: Insomnia - Labs Labs: 08/22/17 08:08 08/22/17 11:39 Attending/Attestation - Attestation I have personally seen and examined this patient.: Yes I have fully participated in the care of the patient.: Yes I have reviewed all pertinent clinical information, including history, physical exam and plan: Yes Notes (Text): This is a 89years old male with history of bladder cancer with mets to bone came for weakness and pain.Patient lives alone.Cannot take care of himself 1.Generalized weakness,pain and debility due to bladder cancer D/W patient.Hospice care ,DNR and DNI spoke to his daughter Mary who is his POA Hospice referral made 2.Urniary retension-Faley cath placed by Dr [place] 3.pelvic pain-Increase dilaudid to 2mg Q4,fantanyl patch 4.Depression and sucidal attempt 1:1 observation and follow psychiatrist 5.Continue current meds Patient was seen and examined.Spoke to the RN about pain meds Case discussed with the resident.Agree with the documentation of the resident *
--- NOTE | 2017-08-22 16:28 | CP.PCM.CON ---
Past Patient History - Infectious Disease Hx of Infectious Diseases: None - Past Medical History & Family History Past Medical History?: Yes - Past Social History Smoking Status: Never Smoked - CARDIAC Hx Hypercholesterolemia: Yes Hx Hypertension: Yes - PULMONARY Hx Respiratory Disorders: No - NEUROLOGICAL Hx Neurological Disorder: No - HEENT Hx HEENT Problems: Yes Hx Cataracts: Yes (surgery right eye) - RENAL Hx Chronic Kidney Disease: Yes - ENDOCRINE/METABOLIC Hx Diabetes Mellitus Type 2: Yes - HEMATOLOGICAL/ONCOLOGICAL Hx Blood Disorders: No - INTEGUMENTARY Hx Dermatological Problems: No - MUSCULOSKELETAL/RHEUMATOLOGICAL Hx Arthritis: Yes - GASTROINTESTINAL Hx Gall Bladder Disease: Yes - GENITOURINARY/GYNECOLOGICAL Hx Genitourinary Disorders: Yes Hx Bladder Cancer: Yes Hx Hematuria: Yes Hx Prostate Problems: Yes (enlarged prostate, partial prostatectomy) Hx Urinary Tract Infection: Yes - PSYCHIATRIC Hx Substance Use: No - SURGICAL HISTORY Hx Cholecystectomy: Yes Hx Coronary Artery Bypass Graft: Yes (x4) - ANESTHESIA Hx Anesthesia: Yes Hx Anesthesia Reactions: No Hx Malignant Hyperthermia: No Has any member of the family had a problem w/ anesthesia?: No Meds Allergies/Adverse Reactions: Allergies Allergy/AdvReac Type Severity Reaction Status Date / Time Penicillins Allergy RASH Verified 08/19/17 12:23 - Medications Medications: Current Medications Acetaminophen (Tylenol 325mg Tab) 650 mg PO Q6 PRN PRN Reason: Pain, moderate (4-7) Docusate Sodium (Colace) 100 mg PO BID [facility] Last Admin: 08/22/17 10:08 Dose: 100 mg Escitalopram Oxalate (Lexapro) 10 mg PO DAILY [facility] Famotidine (Pepcid) 20 mg PO DAILY [facility] Last Admin: 08/22/17 10:09 Dose: 20 mg Fentanyl (Duragesic) 1 patch TD Q72H [facility] Last Admin: 08/19/17 20:00 Dose: 1 patch Heparin Sodium (Porcine) (Heparin) 5,000 units SC Q12 [facility] Last Admin: 08/22/17 10:09 Dose: 5,000 units Hydromorphone HCl (Dilaudid) 2 mg IVP Q4H [facility] Lorazepam (Ativan) 0.5 mg PO BID [facility] Stop: 08/23/17 18:01 Last Admin: 08/22/17 10:09 Dose: 0.5 mg Ondansetron HCl (Zofran Inj) 4 mg IVP DAILY@ONCE PRN PRN Reason: Nausea/Vomiting Polyethylene Glycol (Miralax) 17 gm PO BID [facility] Last Admin: 08/22/17 10:08 Dose: 17 gm Quetiapine Fumarate (Seroquel) 25 mg PO HS [facility] Last Admin: 08/21/17 21:57 Dose: 25 mg Rosuvastatin Calcium (Crestor) 2.5 mg PO HS [facility] Last Admin: 08/21/17 21:57 Dose: 2.5 mg Tamsulosin HCl (Flomax) 0.4 mg PO DAILY [facility] Last Admin: 08/21/17 09:48 Dose: 0.4 mg Temazepam (Restoril) 30 mg PO HS PRN PRN Reason: Insomnia Results - Vital Signs Recent Vital Signs: Last Vital Signs Temp 98.3 F 08/21/17 23:09 Pulse 73 08/21/17 23:09 Resp 20 08/21/17 23:09 BP 115/73 08/21/17 23:09 Pulse Ox 93 L 08/21/17 23:09 - Labs Result Diagrams: 08/22/17 08:08 08/22/17 11:39 Labs: Laboratory Results - last 24 hr 08/22/17 08/22/17 08:08 11:39 WBC 9.4 RBC 4.74 Hgb 13.7 Hct 41.3 MCV 87.1 MCH 28.9 MCHC 33.2 RDW 14.6 H Plt Count 290 MPV 8.1 Neut % (Auto) 78.6 H Lymph % (Auto) 13.6 L [place] % (Auto) 6.4 Eos % (Auto) 0.9 Baso % (Auto) 0.5 Neut # 7.4 H Lymph # 1.3 [place] # 0.6 Eos # 0.1 Baso # 0.0 Sodium 135 Potassium 4.4 Chloride 97 L Carbon Dioxide 23 Anion Gap 19 BUN 43 H Creatinine 2.1 H Est GFR ( Amer) 36 Est GFR (Non-Af Amer) 30 Random Glucose 144 H Calcium 9.0 Total Bilirubin 1.4 H AST 27 ALT 32 Alkaline Phosphatase 96 Total Protein 7.7 Albumin 4.2 Globulin 3.5 Albumin/Globulin Ratio 1.2 Assessment & Plan - Assessment and Plan (Free Text) Assessment: imp: Hx of urothelial carcinoma, metastatic Lymphadenopathy Incomplete bladder emptying, Urinary retention , >1 liter Plan: Bladder scan revealed residual > 999ml lund catheter inserted, 14fr, coude-tipped lund catheter. - Date & Time Date: 08/22/17 Time: 16:28
[2017-08-22] MEDS: Rosuvastatin Calcium 2.5 mg Tab PO SCH (22:11)
[2017-08-23 01:22] VITALS: BP 127/77; PULSE 77; TEMP 98.1; O2SAT 94
[2017-08-23 07:42] LABS: BASO % 0.4 % (0.0-2.0); EOS # 0.1 K/uL (0.0-0.7); EOS % 0.9 % (0.0-4.0); HEMATOCRIT 41.8 % (35.0-51.0); LYMPH # 1.3 K/uL (1.0-4.3); LYMPH % 9.7 % (20.0-40.0); MEAN CELL VOLUME 88.3 fL (80.0-94.0); MEAN CORPUSCULAR HEMOGLOBIN 28.6 pg (27.0-31.0); MEAN CORPUSCULAR HGB CONC 32.4 g/dL (33.0-37.0); MONO # 0.7 K/uL (0.0-0.8); MONO % 5.6 % (0.0-10.0); NRBC % 0.2 % (0.0-2.0); PLATELET COUNT 242 K/uL (130-400); RED CELL DISTRIBUTION WIDTH 14.8 % (11.5-14.5); WHITE BLOOD COUNT 13.1 K/uL (4.8-10.8)
--- NOTE | 2017-08-23 07:44 | CP.PCM.PN ---
<James Gutierres - Last Filed: 08/23/17 07:41> Subjective - Date & Time of Evaluation Date of Evaluation: 08/23/17 Time of Evaluation: 07:41 - Subjective Subjective: PGY-1 medicine note. No acute events overnight. Patient was seen and examined at bedside this AM. Patient was resting comfortably in bed watching televsion. The lund catheter was secure and draining normal appearing urine. He complained of pain in the suprapubic area. Patient denied chest pain, shortness of breath, abdominal pain , headache, nausea, vomiting, diarrhea, constipation, fever or chills. Objective - Vital Signs/Intake and Output Vital Signs (last 24 hours): Temp Pulse Resp BP Pulse Ox 98.1 F 77 20 127/77 94 L 08/23/17 00:05 08/23/17 00:05 08/23/17 00:05 08/23/17 00:05 08/23/17 00:05 Intake and Output: 08/23/17 08/23/17 06:59 18:59 Intake Total 240 Output Total 2500 Balance -2260 - Medications Medications: Current Medications Acetaminophen (Tylenol 325mg Tab) 650 mg PO Q6 PRN PRN Reason: Pain, moderate (4-7) Docusate Sodium (Colace) 100 mg PO BID [facility] Last Admin: 08/22/17 17:40 Dose: 100 mg Escitalopram Oxalate (Lexapro) 10 mg PO DAILY [facility] Famotidine (Pepcid) 20 mg PO DAILY [facility] Last Admin: 08/22/17 10:09 Dose: 20 mg Fentanyl (Duragesic) 1 patch TD Q72H [facility] Last Admin: 08/22/17 19:39 Dose: 1 patch Heparin Sodium (Porcine) (Heparin) 5,000 units SC Q12 [facility] Last Admin: 08/22/17 22:11 Dose: 5,000 units Hydromorphone HCl (Dilaudid) 2 mg IVP Q4H [facility] Last Admin: 08/23/17 06:22 Dose: Not Given Lorazepam (Ativan) 0.5 mg PO BID [facility] Stop: 08/23/17 18:01 Last Admin: 08/22/17 17:40 Dose: 0.5 mg Ondansetron HCl (Zofran Inj) 4 mg IVP DAILY@ONCE PRN PRN Reason: Nausea/Vomiting Polyethylene Glycol (Miralax) 17 gm PO BID [facility] Last Admin: 08/22/17 17:40 Dose: 17 gm Quetiapine Fumarate (Seroquel) 25 mg PO HS [facility] Last Admin: 08/22/17 22:11 Dose: 25 mg Rosuvastatin Calcium (Crestor) 2.5 mg PO HS [facility] Last Admin: 08/22/17 22:11 Dose: 2.5 mg Tamsulosin HCl (Flomax) 0.4 mg PO DAILY [facility] Last Admin: 08/21/17 09:48 Dose: 0.4 mg Temazepam (Restoril) 30 mg PO HS PRN PRN Reason: Insomnia - Labs Labs: 08/22/17 08:08 08/22/17 11:39 - Additional Findings Additional findings: - Constitutional Appears: Non-toxic, No Acute Distress - Head Exam Head Exam: NORMAL INSPECTION - Eye Exam Eye Exam: EOMI, Normal appearance - ENT Exam ENT Exam: Mucous Membranes Dry - Respiratory Exam Respiratory Exam: Clear to Ausculation Bilateral, NORMAL BREATHING PATTERN. absent: Accessory Muscle Use, Rales, Rhonchi, Wheezes, Respiratory Distress - Cardiovascular Exam Cardiovascular Exam: REGULAR RHYTHM, +S1, +S2, Murmur. absent: Bradycardia - GI/Abdominal Exam GI & Abdominal Exam: Soft, Tenderness (suprapubic), Normal Bowel Sounds. absent : Distended, Guarding - Extremities Exam Extremities Exam: Normal Inspection. absent: Calf Tenderness, Pedal Edema - Neurological Exam Neurological Exam: Alert, Awake - Psychiatric Exam Psychiatric exam: Depressed, Normal Affect - Skin Skin Exam: Dry, Intact, Normal Color, Warm Assessment and Plan - Assessment and Plan (Free Text) Assessment: Weakness generalized Assessment and Plan: * PT/OT eval and treat * nutrition assessment * case management for rehab placement * fall risk protocol * Blood cultures (08/19): negative negative up to date Status: Chronic Elevated d-dimer Assessment and Plan: * V/Q scan - low probability for PE * likely due to cancer Status: Acute BPH (benign prostatic hypertrophy) with urinary obstruction Assessment and Plan: * cont home med: Tamsulosin 0.4 mg PO QD * Fentanyl patch for pain control * Dilaudid 2 mg Q4 PRN pain - changed to [facility] on 08/22 * Bladder scan - 395 cc residual * Urology consult ([facility]) - recs appreciated * Dr Bere vargas lund 08/22/17 * monitor I/Os Status: Chronic Hx of bladder cancer Assessment and Plan: * Hospice consult * Daughter (Mary) would like inpatient hospice Status: Chronic Diabetes Assessment and Plan: * Reports history but does not take meds * monitor glucose ACHS Status: Chronic Hypercholesterolemia Assessment and Plan: * Crestor 2.5 mg PO HS Status: Chronic Constipation Assessment and Plan: * Colace 100 mg PRN changed to [facility] (08/21) * Miralax [facility] Status: Acute Depression Assessment & Plan: * Psych (Dr. Acosta) consulted - recs appreciated * Ativan 0.5 mg PO BID * Seroquel 25 mg PO HS Status: Chronic Suicide attempt Assessment & Plan: * Overdose on oxycodone of unknown amount * Narcan 0.4 mg IV Once given * 08/20 @ 20:00 Acetominophen level: <10, LFTs: 34/39, TBili: 1.0, Direct Bili: 0.4 * Acetominophen levels rise at 4 hours and LFTs begin at 24h and peak at 72hr * Monitor LFTs * One-to-one/Avasys ordered * Psych consult (Dr. Acosta) - recs appreciated * Ativan 0.5 mg PO BID * Seroquel 25 mg PO HS * Ordered to call poison control * I personally called with no answer Status: Acute Prophylactic measure Assessment and Plan: * SCDs * Heparin Q12 * Pepcid 20 mg BID * Zofran PRN Status: Acute <Madeline Gerber - Last Filed: 08/31/17 10:50> Objective - Vital Signs/Intake and Output Vital Signs (last 24 hours): Temp Pulse Resp BP Pulse Ox 98.1 F 77 20 127/77 94 L 08/23/17 00:05 08/23/17 00:05 08/23/17 00:05 08/23/17 00:05 08/23/17 00:05 - Labs Labs: 08/23/17 07:19 08/23/17 07:19 Attending/Attestation - Attestation I have personally seen and examined this patient.: Yes I have fully participated in the care of the patient.: Yes I have reviewed all pertinent clinical information, including history, physical exam and plan: Yes Notes (Text): Patient was seen and examined Discussed with the resident I agree with the resident's documentation of the assessment and the plan.
[2017-08-23 08:16] LABS: POTASSIUM 4.4 mmol/L (3.6-5.2)
[2017-08-23 08:18] LABS: BILIRUBIN,TOTAL 1.3 mg/dL (0.2-1.3)
[2017-08-23 08:19] LABS: ALB/GLOB RATIO 1.2 (1.0-2.1); TOTAL PROTEIN 7.8 g/dL (6.3-8.3)
[2017-08-23 08:20] LABS: CALCIUM 8.9 mg/dl (8.6-10.4)
[2017-08-23] MEDS: POLYETHYLENE GLYCOL 3350 17 GM/Dose PACKET PO SCH (09:28)
[2017-08-23 10:02] LABS: METAMYELOCYTE 1 % (0-0); NEUTROPHIL 87 % (50-75); TOTAL CELLS COUNTED 100
[2017-08-23 10:03] LABS: PLATELET CLUMPS PRESENT
--- NOTE | 2017-08-23 17:21 | CP.PCM.DIS ---
<James Gutierres - Last Filed: 08/23/17 17:12> Provider - Provider Date of Admission: 08/19/17 17:14 Attending physician: Madeline Gerber MD Primary care physician: Dr Desai Consults: Psych: Dr Acosta Urology: Dr Tayler Lancaster Time Spent in preparation of Discharge (in minutes): 60 Hospital Course - Lab Results Lab Results: Micro Results 08/19/17 13:00 Blood Blood Culture - Preliminary NO GROWTH AFTER 4 DAYS 08/19/17 11:30 Blood Blood Culture - Preliminary NO GROWTH AFTER 4 DAYS Most Recent Lab Values WBC 13.1 K/uL (4.8-10.8) H 08/23/17 07:19 RBC 4.74 Mil/uL (4.40-5.90) 08/23/17 07:19 Hgb 13.6 g/dL (12.0-18.0) 08/23/17 07:19 Hct 41.8 % (35.0-51.0) 08/23/17 07:19 MCV 88.3 fL (80.0-94.0) 08/23/17 07:19 MCH 28.6 pg (27.0-31.0) 08/23/17 07:19 MCHC 32.4 g/dL (33.0-37.0) L 08/23/17 07:19 RDW 14.8 % (11.5-14.5) H 08/23/17 07:19 Plt Count 242 K/uL (130-400) 08/23/17 07:19 MPV 9.0 fL (7.2-11.7) 08/23/17 07:19 Neut % (Auto) 83.4 % (50.0-75.0) H 08/23/17 07:19 Lymph % (Auto) 9.7 % (20.0-40.0) L 08/23/17 07:19 Cowley % (Auto) 5.6 % (0.0-10.0) 08/23/17 07:19 Eos % (Auto) 0.9 % (0.0-4.0) 08/23/17 07:19 Baso % (Auto) 0.4 % (0.0-2.0) 08/23/17 07:19 Neut # 11.0 K/uL (1.8-7.0) H 08/23/17 07:19 Lymph # 1.3 K/uL (1.0-4.3) 08/23/17 07:19 Cowley # 0.7 K/uL (0.0-0.8) 08/23/17 07:19 Eos # 0.1 K/uL (0.0-0.7) 08/23/17 07:19 Baso # 0.0 K/uL (0.0-0.2) 08/23/17 07:19 Neutrophils % (Manual) 87 % (50-75) H 08/23/17 07:19 Band Neutrophils % 1 % (0-2) 08/23/17 07:19 Lymphocytes % (Manual) 9 % (20-40) L 08/23/17 07:19 Monocytes % (Manual) 2 % (0-10) 08/23/17 07:19 Metamyelocytes % 1 % (0-0) H 08/23/17 07:19 Platelet Estimate Normal (NORMAL) 08/23/17 07:19 Plt Clumps, EDTA Present 08/23/17 07:19 Anisocytosis (manual) Slight 08/23/17 07:19 Ovalocytes Slight 08/23/17 07:19 D-Dimer, Quantitative 414 ng/mlDDU (0-243) H 08/19/17 13:06 Sodium 136 mmol/L (132-148) 08/23/17 07:19 Potassium 4.4 mmol/L (3.6-5.2) 08/23/17 07:19 Chloride 99 mmol/L (98-107) 08/23/17 07:19 Carbon Dioxide 21 mmol/L (22-30) L 08/23/17 07:19 Anion Gap 20 (10-20) 08/23/17 07:19 BUN 44 mg/dL (9-20) H 08/23/17 07:19 Creatinine 1.9 mg/dL (0.8-1.5) H 08/23/17 07:19 Est GFR ( Amer) 41 08/23/17 07:19 Est GFR (Non-Af Amer) 34 08/23/17 07:19 POC Glucose (mg/dL) 170 mg/dL (65-110) H 08/23/17 11:48 Random Glucose 129 mg/dL (75-110) H 08/23/17 07:19 Calcium 8.9 mg/dl (8.6-10.4) 08/23/17 07:19 Magnesium 2.6 mg/dL (1.6-2.3) H 08/19/17 13:06 Total Bilirubin 1.3 mg/dL (0.2-1.3) 08/23/17 07:19 Direct Bilirubin 0.4 mg/dL (0.0-0.4) 08/20/17 20:30 AST 36 U/L (17-59) 08/23/17 07:19 ALT 37 U/L (21-72) 08/23/17 07:19 Alkaline Phosphatase 99 U/L (38-126) 08/23/17 07:19 Troponin I 0.0210 ng/mL (0.00-0.120) 08/19/17 13:06 NT-Pro-B Natriuret Pep 435 pg/mL (0-900) 08/19/17 13:06 Total Protein 7.8 g/dL (6.3-8.3) 08/23/17 07:19 Albumin 4.2 g/dL (3.5-5.0) 08/23/17 07:19 Globulin 3.5 gm/dL (2.2-3.9) 08/23/17 07:19 Albumin/Globulin Ratio 1.2 (1.0-2.1) 08/23/17 07:19 Lipase 48 U/L (23-300) 08/19/17 13:06 TSH 3rd Generation 1.63 mIU/L (0.46-4.68) 08/19/17 13:06 Urine Color Yellow (YELLOW) 08/19/17 18:20 Urine Clarity Clear (Clear) 08/19/17 18:20 Urine pH 6.0 (5.0-8.0) 08/19/17 18:20 Ur Specific Accident 1.018 (1.003-1.030) 08/19/17 18:20 Urine Protein Negative mg/dL (NEGATIVE) 08/19/17 18:20 Urine Glucose (UA) 1+ mg/dL (Normal) H 08/19/17 18:20 Urine Ketones Negative mg/dL (NEGATIVE) 08/19/17 18:20 Urine Blood Negative (NEGATIVE) 08/19/17 18:20 Urine Nitrate Negative (NEGATIVE) 08/19/17 18:20 Urine Bilirubin Negative (NEGATIVE) 08/19/17 18:20 Urine Urobilinogen Normal mg/dL (0.2-1.0) 08/19/17 18:20 Ur Leukocyte Esterase Trace Abilio/uL (Negative) 08/19/17 18:20 Urine WBC (Auto) 6 /hpf (0-5) H 08/19/17 18:20 Urine RBC (Auto) 3 /hpf (0-3) 08/19/17 18:20 Ur Squamous Epith Cells 1 /hpf (0-5) 08/19/17 18:20 Urine Bacteria Occ (<OCC) H 08/19/17 18:20 Acetaminophen < 10.0 ug/mL (10.0-30.0) L 08/20/17 20:29 - Hospital Course Hospital Course: CC: weakness, fatigue, "I can't take care of myself" HPI: Patient is an 89 year old male with a past medical history of bladder cancer, BPH, left urethral stricture, urinary retention, CAD, DM2, HLD, and lumbar herniated discs who presents to the ED complaining of fatigue and weakness. Patient says he has been feeling this way since his nephrectomy but 2 weeks ago he started feeling more weak and tired. He admits to associated SOB that is worse with exertion and at night. Patient has had a decreased appetite and says he dry heaves when he exerts himself, however he does not feel nauseous and does not vomit. He says he cannot take car eof himself anymore and wants help. He says his closet family is his daughter in [place]. Patient was recently admitted for abdominal pain due to urinary retention. Patient is still having some lower abdominal pain but attributes this to his urinary retention. Patient has some pain in his low back radiating to his right thigh which he attributes to herniated discs in his back. Patient denies fever, chills , headache, changes in vision and hearing, sore throat, chest pain, palpitations , cough, nausea, vomiting, diarrhea, blood in stool, dysuria, frequency, leg swelling, and rash. PMD: Dr. Desai Urologist: Dr. Levy Heme/Onc: Dr. Palathingal PMHx: bladder cancer, BPH, L urethral stricture, urinary retention, CAD s/p CABG, DM2, HLD, lumbar herniated discs SurgHx: L nephrectomy (Dec 2016), partial prostatectomy (2001), 4 vessel CABG at [facility] (1992), cholecystectomy (1992) FamHx: denies SocialHx: former smoker for 40 years, quit in 1992 after CABG, former alcoholic also quit 1992, denies illicit drug use; retired, used to work in [employer] in [place]; lives alone, daughter lives in [place] Allergies: Penicillin, unknown reaction Home Meds: Acetaminophen 650 mg PO q6 PRN for pain; Temazepam 30 mg PO qhs PRN for sleep; Tamsulosin 0.4 mg PO daily; Atorvastatin 10 mg PO HOSPITAL COURSE: Patient is an 89 year old male with a past medical history of bladder cancer, BPH, left urethral stricture, urinary retention, CAD , DM2, HLD, and lumbar herniated discs who presents to the ED complaining of fatigue and weakness. He is known to our service. Patient says he has been feeling weak after he was discharged from here. He couldn't take care of himself. He has lot of pelvic and perineum pain. He stated that his daughter was looking for a place for him. Patient also doesn't want chemotherapy, does not want to be kept on machine support and no resuscitation. During this stay he tried to overdose by taking "many" pills of home med percocet and was given narcan and brought back. His home medications were continued while he was here. A lund was inserted by dr honey lancaster. A lung scan was done which showed a low probability for a PE. Discharge Exam - Additional Findings Additional findings: - Constitutional Appears: Non-toxic, No Acute Distress - Head Exam Head Exam: NORMAL INSPECTION - Eye Exam Eye Exam: EOMI, Normal appearance - ENT Exam ENT Exam: Mucous Membranes Dry - Respiratory Exam Respiratory Exam: Clear to Ausculation Bilateral, NORMAL BREATHING PATTERN. absent: Accessory Muscle Use, Rales, Rhonchi, Wheezes, Respiratory Distress - Cardiovascular Exam Cardiovascular Exam: REGULAR RHYTHM, +S1, +S2, Murmur. absent: Bradycardia - GI/Abdominal Exam GI & Abdominal Exam: Soft, Tenderness (suprapubic), Normal Bowel Sounds. absent : Distended, Guarding - Extremities Exam Extremities Exam: Normal Inspection. absent: Calf Tenderness, Pedal Edema - Neurological Exam Neurological Exam: Alert, Awake - Psychiatric Exam Psychiatric exam: Depressed, Normal Affect - Skin Skin Exam: Dry, Intact, Normal Color, Warm Discharge Plan - Follow Up Plan Condition: FAIR Disposition: HOSPICE - MEDICAL FACILITY Instructions: Constipation (DC), Constipation (GEN), Depression (DC), Weakness (GEN) Additional Instructions: Patient is medically stable for discharge to hospice. The medication list has been reconciled. Please continue all medications in the active orders list. <Madeline Gerber - Last Filed: 08/31/17 11:33> Provider - Provider Date of Admission: 08/19/17 17:14 Attending physician: Madeline Gerber MD Hospital Course - Lab Results Lab Results: Micro Results 08/19/17 13:00 Blood Blood Culture - Final NO GROWTH AFTER 5 DAYS 08/19/17 13:00 Blood Gram Stain - Final TEST NOT PERFORMED 08/19/17 11:30 Blood Blood Culture - Final NO GROWTH AFTER 5 DAYS 08/19/17 11:30 Blood Gram Stain - Final TEST NOT PERFORMED Most Recent Lab Values WBC 13.1 K/uL (4.8-10.8) H 08/23/17 07:19 RBC 4.74 Mil/uL (4.40-5.90) 08/23/17 07:19 Hgb 13.6 g/dL (12.0-18.0) 08/23/17 07:19 Hct 41.8 % (35.0-51.0) 08/23/17 07:19 MCV 88.3 fL (80.0-94.0) 08/23/17 07:19 MCH 28.6 pg (27.0-31.0) 08/23/17 07:19 MCHC 32.4 g/dL (33.0-37.0) L 08/23/17 07:19 RDW 14.8 % (11.5-14.5) H 08/23/17 07:19 Plt Count 242 K/uL (130-400) 08/23/17 07:19 MPV 9.0 fL (7.2-11.7) 08/23/17 07:19 Neut % (Auto) 83.4 % (50.0-75.0) H 08/23/17 07:19 Lymph % (Auto) 9.7 % (20.0-40.0) L 08/23/17 07:19 Cowley % (Auto) 5.6 % (0.0-10.0) 08/23/17 07:19 Eos % (Auto) 0.9 % (0.0-4.0) 08/23/17 07:19 Baso % (Auto) 0.4 % (0.0-2.0) 08/23/17 07:19 Neut # 11.0 K/uL (1.8-7.0) H 08/23/17 07:19 Lymph # 1.3 K/uL (1.0-4.3) 08/23/17 07:19 Cowley # 0.7 K/uL (0.0-0.8) 08/23/17 07:19 Eos # 0.1 K/uL (0.0-0.7) 08/23/17 07:19 Baso # 0.0 K/uL (0.0-0.2) 08/23/17 07:19 Neutrophils % (Manual) 87 % (50-75) H 08/23/17 07:19 Band Neutrophils % 1 % (0-2) 08/23/17 07:19 Lymphocytes % (Manual) 9 % (20-40) L 08/23/17 07:19 Monocytes % (Manual) 2 % (0-10) 08/23/17 07:19 Metamyelocytes % 1 % (0-0) H 08/23/17 07:19 Platelet Estimate Normal (NORMAL) 08/23/17 07:19 Plt Clumps, EDTA Present 08/23/17 07:19 Anisocytosis (manual) Slight 08/23/17 07:19 Ovalocytes Slight 08/23/17 07:19 D-Dimer, Quantitative 414 ng/mlDDU (0-243) H 08/19/17 13:06 Sodium 136 mmol/L (132-148) 08/23/17 07:19 Potassium 4.4 mmol/L (3.6-5.2) 08/23/17 07:19 Chloride 99 mmol/L (98-107) 08/23/17 07:19 Carbon Dioxide 21 mmol/L (22-30) L 08/23/17 07:19 Anion Gap 20 (10-20) 08/23/17 07:19 BUN 44 mg/dL (9-20) H 08/23/17 07:19 Creatinine 1.9 mg/dL (0.8-1.5) H 08/23/17 07:19 Est GFR ( Amer) 41 08/23/17 07:19 Est GFR (Non-Af Amer) 34 08/23/17 07:19 POC Glucose (mg/dL) 170 mg/dL (65-110) H 08/23/17 11:48 Random Glucose 129 mg/dL (75-110) H 08/23/17 07:19 Calcium 8.9 mg/dl (8.6-10.4) 08/23/17 07:19 Magnesium 2.6 mg/dL (1.6-2.3) H 08/19/17 13:06 Total Bilirubin 1.3 mg/dL (0.2-1.3) 08/23/17 07:19 Direct Bilirubin 0.4 mg/dL (0.0-0.4) 08/20/17 20:30 AST 36 U/L (17-59) 08/23/17 07:19 ALT 37 U/L (21-72) 08/23/17 07:19 Alkaline Phosphatase 99 U/L (38-126) 08/23/17 07:19 Troponin I 0.0210 ng/mL (0.00-0.120) 08/19/17 13:06 NT-Pro-B Natriuret Pep 435 pg/mL (0-900) 08/19/17 13:06 Total Protein 7.8 g/dL (6.3-8.3) 08/23/17 07:19 Albumin 4.2 g/dL (3.5-5.0) 08/23/17 07:19 Globulin 3.5 gm/dL (2.2-3.9) 08/23/17 07:19 Albumin/Globulin Ratio 1.2 (1.0-2.1) 08/23/17 07:19 Lipase 48 U/L (23-300) 08/19/17 13:06 TSH 3rd Generation 1.63 mIU/L (0.46-4.68) 08/19/17 13:06 Urine Color Yellow (YELLOW) 08/19/17 18:20 Urine Clarity Clear (Clear) 08/19/17 18:20 Urine pH 6.0 (5.0-8.0) 08/19/17 18:20 Ur Specific Accident 1.018 (1.003-1.030) 08/19/17 18:20 Urine Protein Negative mg/dL (NEGATIVE) 08/19/17 18:20 Urine Glucose (UA) 1+ mg/dL (Normal) H 08/19/17 18:20 Urine Ketones Negative mg/dL (NEGATIVE) 08/19/17 18:20 Urine Blood Negative (NEGATIVE) 08/19/17 18:20 Urine Nitrate Negative (NEGATIVE) 08/19/17 18:20 Urine Bilirubin Negative (NEGATIVE) 08/19/17 18:20 Urine Urobilinogen Normal mg/dL (0.2-1.0) 08/19/17 18:20 Ur Leukocyte Esterase Trace Abilio/uL (Negative) 08/19/17 18:20 Urine WBC (Auto) 6 /hpf (0-5) H 08/19/17 18:20 Urine RBC (Auto) 3 /hpf (0-3) 08/19/17 18:20 Ur Squamous Epith Cells 1 /hpf (0-5) 08/19/17 18:20 Urine Bacteria Occ (<OCC) H 08/19/17 18:20 Acetaminophen < 10.0 ug/mL (10.0-30.0) L 08/20/17 20:29 Attending/Attestation - Attestation I have personally seen and examined this patient.: Yes I have fully participated in the care of the patient.: Yes I have reviewed all pertinent clinical information, including history, physical exam and plan: Yes Notes (Text): Patient was seen and examined Discussed with the resident I agree with the resident's assessment nd plan
--- NOTE | 2017-08-24 16:10 | CON ---
UROLOGY CONSULTATION UROLOGY CONSULTATION REQUESTED BY: . UROLOGY CONSULTATION FILLED BY: Dr. Latasha Lancaster. REASON FOR CONSULTATION: Elevated residual in the bladder. HISTORY OF PRESENT ILLNESS: The patient is an 89-year-old male with ureteral carcinoma. The patient had previous left nephroureterectomy early this year. Procedure was performed robotically, laparoscopically. The patient was subsequently found to have metastatic lymphadenopathy. The patient has been referred for oncology care and consultation. The patient had previous admission earlier this month. The patient is now admitted with weakness. He has had pain requiring analgesics. The patient is currently on one to one, though he watch for suicidal ideation. The patient reports no recent hematuria. He reports no recent fever or rigors. The patient has had abdominal pain. He has mostly lower abdominal pain. The patient reports that he is voiding comfortably. However, he is unable to urinate at present. PHYSICAL EXAMINATION: GENERAL: The patient is well-developed, well-nourished elderly male, appearing younger than stated age. ABDOMEN: Soft. There is mild to moderate suprapubic tenderness. There is moderate suprapubic dullness to percussion and palpation. GENITALIA: Without inflammation, uncircumcised male. LABORATORY DATA: Reviewed. Azotemia is noted. I performed a bladder scan. The bladder residual is greater than 999 mL. IMPRESSION: Urinary retention. Azotemia. Solitary kidney. History of metastatic ureteral carcinoma (urothelial). RECOMMENDATIONS AND PLAN: The patient has history of previous difficulty having a catheter inserted. Under sterile conditions, I inserted a 14-[place] Coude tip catheter. I additionally used lidocaine jelly. The urine from the bladder was clear. Lew catheter, straight drainage. Monitor urine output. Monitor renal function. Further therapy to follow according to the patient's clinical course. The urinary retention may need further therapy and diagnostic and therapeutic intervention. Thank you for recommending the patient for urology consultation. Latasha Lancaster MD cc: Patient's chart and Latasha Lancaster MD
== END 2017-08-23 17:50 | disposition hospice, inpatient (51) | DRG 687 ==
LOC: C.ER 12:14 → C.9E 17:14 → C.6T 19:53
PROVIDERS: ADMIT Hospitalist; ATTEND Internal Medicine
DX: C67.9 Malignant neoplasm of bladder, unspecified (principal); C77.2 Secondary and unspecified malignant neoplasm of intra-abdominal lymph nodes; C79.19 Secondary malignant neoplasm of other urinary organs; F32.2 Major depressive disorder, single episode, severe without psychotic features; C79.51 Secondary malignant neoplasm of bone; N13.8 Other obstructive and reflux uropathy; R53.1 Weakness; E11.22 Type 2 diabetes mellitus with diabetic chronic kidney disease; E78.00 Pure hypercholesterolemia, unspecified; E78.5 Hyperlipidemia, unspecified; F43.22 Adjustment disorder with anxiety; M51.16 Intervertebral disc disorders with radiculopathy, lumbar region; G47.00 Insomnia, unspecified; I12.9 Hypertensive chronic kidney disease with stage 1 through stage 4 chronic kidney disease, or unspecified chronic kidney disease; I25.10 Atherosclerotic heart disease of native coronary artery without angina pectoris; K59.00 Constipation, unspecified; N18.9 Chronic kidney disease, unspecified; N40.1 Benign prostatic hyperplasia with lower urinary tract symptoms; R79.1 Abnormal coagulation profile; T40.2X2A Poisoning by other opioids, intentional self-harm, initial encounter; Y92.230 Patient room in hospital as the place of occurrence of the external cause; K59.09 Other constipation; Z66 Do not resuscitate; Z51.5 Encounter for palliative care; Z95.1 Presence of aortocoronary bypass graft; Z87.891 Personal history of nicotine dependence; Z87.11 Personal history of peptic ulcer disease; Z90.49 Acquired absence of other specified parts of digestive tract; Z79.899 Other long term (current) drug therapy; Z88.0 Allergy status to penicillin; Z90.6 Acquired absence of other parts of urinary tract; Z98.41 Cataract extraction status, right eye; Z90.5 Acquired absence of kidney